=== PATIENT | female | born 1950 | race Caucasian/White ===

== ENCOUNTER 2017-01-27 10:48 | Inpatient (IN) | payer MEDICARE ==
[2017-01-27 13:53] LABS: INR 1.1 (<1.2); Prothrombin Time 11.1 sec (9.0-12.0)
[2017-01-27 13:55] LABS: HCT 40.3 % (34.0-46.0); HGB 13.8 gm/dL (11.4-16.0); MCH 32.3 pg (25.0-35.0); MCV 94.2 fL (80.0-100.0); RBC 4.28 m/uL (3.80-5.40)
[2017-01-27 13:56] LABS: CH 33.1; CHCM 35.3; MCHC 34.3 g/dL (31.0-37.0); RDW 12.9 % (11.5-15.5)
[2017-01-27 13:58] LABS: Anion Gap 10 mmol/L; Blood Urea Nitrogen 16 mg/dL (7-17); Calcium 9.6 mg/dL (8.4-10.2); Carbon Dioxide 23 mmol/L (22-30); Chloride 104 mmol/L (98-107); Glucose 133 mg/dL (74-99); Non-African American GFR(MDRD) 55 (>60 ml/min/1.73 sqM); Potassium 3.9 mmol/L (3.5-5.1); Sodium 137 mmol/L (137-145)
[2017-01-27] MEDS ORDERED: LIDOCAINE 2% INJ 20 MG/ML (20 ML MDV) ONE (13:58)
[2017-01-27] MEDS ORDERED: HEPARIN SODIUM,PORCINE 5,000 UNIT/ML 1 ML VIAL IV STA (14:04)
[2017-01-27] MEDS ORDERED: ATORVASTATIN 80 MG TAB PO STA (14:06)
[2017-01-27] MEDS ORDERED: MIDAZOLAM 2 MG/2 ML VIAL ONE (14:13)
[2017-01-27] MEDS ORDERED: methylPREDNISolone SOD SUCCI 125 MG/2 ML VIAL ONE (14:13)
[2017-01-27] MEDS ORDERED: diphenhydrAMINE 50 MG/ML 1 ML VIAL ONE (14:13)
[2017-01-27 14:16] VITALS: BMI 29.2
[2017-01-27] MEDS ORDERED: methylPREDNISolone SOD SUCCI 125 MG/2 ML VIAL IV ONE (14:18)
[2017-01-27] MEDS ORDERED: diphenhydrAMINE 50 MG/ML 1 ML VIAL IVP ONE (14:18)
[2017-01-27] MEDS ORDERED: MIDAZOLAM 2 MG/2 ML VIAL IV ONE (14:21)
[2017-01-27] MEDS ORDERED: LIDOCAINE 2% INJ 20 MG/ML SQ ONE (14:22)
[2017-01-27] MEDS ORDERED: IV FLUID CONTINUATION 1,000 ML IV ONE (14:28)
[2017-01-27] MEDS ORDERED: BIVALIRUDIN BOLUS 250 MG/50 ML IV ONE (14:43)
[2017-01-27] MEDS ORDERED: BIVALIRUDIN 250 MG in SODIUM CHLORIDE 0.9% 50 ML IV ONE (14:47)
[2017-01-27] MEDS: NITROGLYCERIN 1000MCG/10ML SYRINGE INTRACORON ONE ×2 (14:57→15:07)
[2017-01-27] MEDS ORDERED: niCARdipine 25 MG/10 ML VIAL ONE (15:06)
[2017-01-27] MEDS ORDERED: niCARdipine Syringe (1,000 mcg/10 mL) INTRACORON ONE (15:08)
[2017-01-27] MEDS ORDERED: CLOPIDOGREL 75 MG TAB ONE (15:08)
[2017-01-27] MEDS ORDERED: CLOPIDOGREL 75 MG TAB PO ONE (15:18)
[2017-01-27] MEDS ORDERED: IOHEXOL 350 MG/ML 125ML BOTTLE INJ ONE (15:18)
[2017-01-27] MEDS ORDERED: ATROPINE SULFATE 0.1 MG/ML 10ML SYRINGE ONE (18:03)
[2017-01-27] MEDS: SODIUM CHLORIDE 0.9% 1,000 ML IV SCH (18:43)
--- NOTE | 2017-01-27 20:53 | CONS ---
CONSULTATION CHIEF COMPLAINT: Chest pain. This is a 66-year-old lady with history of hypertension, dyslipidemia, and family history of coronary artery disease who presented to [facility] with symptoms of chest pain. She describes it as a precordial chest pressure that radiated to her back, moderate in intensity, and was associated with some diaphoresis. She was diagnosed with unstable angina and transferred to [facility]. After coming here, she had another bout of chest discomfort. EKG shows sinus rhythm with ST- T wave changes suggestive of ischemia. Due to her symptomatology and the EKG changes, I advised her to undergo cardiac catheterization with a view to performing angioplasty. She had been explained the risks, benefits and alternatives, understood and accepted. PAST MEDICAL HISTORY: Past medical history is significant for 1. Hypertension. 2. Dyslipidemia. MEDICATIONS: Medications are as charted. She could not tolerate statins. ALLERGIES: She has MULTIPLE DRUG ALLERGIES. They are charted. FAMILY HISTORY: Significant for coronary artery disease. SOCIAL HISTORY: Negative for smoking, ETOH abuse or drug abuse. REVIEW OF SYSTEMS: HEENT is unremarkable. CARDIAC: As described above. RESPIRATORY: Negative. GI: Negative. GENITOURINARY: Negative. ALLERGY/IMMUNOLOGY: Negative. SKIN: Negative. MUSCULOSKELETAL: Significant for arthritis. PSYCHOSOCIAL: Negative. ENDOCRINE: Negative. DERMATOLOGICAL: Negative. CONSTITUTIONAL: Negative. ONCOLOGICAL: Negative. Rest of the system review is not relevant. PHYSICAL EXAM: Comfortable at rest. Vital signs are stable. There is no jugular venous distention. Carotid upstroke is normal. There is no bruit. Chest exam reveals good air entry bilaterally. Heart exam reveals first and second heart sounds. No gallop. No murmur. No rub. Abdomen is soft, nontender. Examination of extremities did not reveal any edema. Peripheral pulses are felt. VALVE FITTER exam did not reveal focal neurological deficits. EKG: EKG shows ST-T wave changes of ischemia. LABS: Creatinine is normal. Hemoglobin is normal. ASSESSMENT: Unstable angina. PLAN: The patient will undergo cardiac catheterization. Will decide on further course of action based on the catheterization findings. SANDRAL / RASHAUNN: [id number] /
[2017-01-28] MEDS ORDERED: HYDROcodone/APAP 5-325MG 1 EACH TAB PO PRN (02:56)
[2017-01-28] MEDS: SODIUM CHLORIDE 0.9% 1,000 ML IV SCH ×2 (04:57→19:01)
[2017-01-28] MEDS ORDERED: ZOLPIDEM 5 MG TAB PO PRN (08:17)
[2017-01-28] MEDS ORDERED: ALPRAZolam 0.25 MG TAB PO PRN (08:17)
[2017-01-28] MEDS ORDERED: ATROPINE SULFATE 0.1 MG/ML 10ML SYRINGE IV PRN (08:17)
[2017-01-28] MEDS ORDERED: MAG HYDROX/AL HYDROX/SIMETH 30 ML CUP PO PRN (08:17)
[2017-01-28] MEDS ORDERED: NITROGLYCERIN SL TABS 0.4 MG TAB SUBLINGUAL PRN (08:17)
[2017-01-28] MEDS ORDERED: HYDROmorphone 1 MG/ML 1 ML SYRINGE IVP PRN (08:17)
--- NOTE | 2017-01-28 08:45 | CC ---
CARDIAC CATHETERIZATION REPORT INDICATION: Unstable angina. PROCEDURE NOTE: After obtaining informed consent, left heart catheterization and coronary angiogram were performed via the right femoral artery using standard Sherley catheters. Patient tolerated the procedure well without any obvious immediate complication. Moderate conscious sedation was given to the patient. Total sedation time was 15 minutes. FINDINGS: 1. HEMODYNAMICS: Left ventricular end-diastolic pressure is 14 to 16 mm. There is no significant gradient across aortic valve. 2. LEFT VENTRICULOGRAM: Left ventriculogram is not performed. 3. ANGIOGRAPHIC DATA:. 4. LEFT MAIN CORONARY ARTERY: Left main coronary artery is a normal-sized vessel and is free of stenosis. It divides into left anterior descending coronary artery and circumflex coronary artery. The circ is a nondominant vessel but shows a focal 95% stenosis. LAD shows a mild atherosclerotic plaque, both in its proximal and mid portion. Right coronary artery is a large dominant vessel shows some mild atherosclerotic plaque in the proximal mid and distal portions. CONCLUSION: A 95% stenosis involving [place] circumflex coronary artery. PLAN: Patient will undergo angioplasty of the circ by Dr. Pascual, the on-call fuel efficient aircraft designer. MIGUE / RASHAUNN: [id number] /
[2017-01-28] MEDS ORDERED: ATORVASTATIN 80 MG TAB PO SCH (09:00)
[2017-01-28] MEDS: ASPIRIN 325 MG TAB PO SCH (09:00)
[2017-01-28] MEDS: METOPROLOL TARTRATE 12.5 MG TAB PO SCH ×2 (09:00→22:11)
[2017-01-28] MEDS: TRIAMTERENE-HCTZ 37.5-25MG 1 EACH CAP PO SCH (09:01)
[2017-01-28] MEDS: CLOPIDOGREL 75 MG TAB PO SCH (09:01)
[2017-01-28 09:12] LABS: CH 32.2; HCT 38.2 % (34.0-46.0); HDW 2.41; HGB 12.9 gm/dL (11.4-16.0); MCH 32.1 pg (25.0-35.0); MCHC 33.7 g/dL (31.0-37.0); MCV 95.2 fL (80.0-100.0); Mean Platelet Volume 7.3; RBC 4.01 m/uL (3.80-5.40); RDW 12.7 % (11.5-15.5); WBC 18.9 k/uL (3.8-10.6)
--- NOTE | 2017-01-28 09:12 | PTCA ---
PERCUTANEOUSTRANS CORORONARY ANGIOGRAPHY DATE OF SERVICE: January 27, 2017. PERFORMING PHYSICIAN: Wilman Pascual M.D., adhesive primer. PROCEDURE PERFORMED: Successful stenting of the proximal and mid left circumflex using a 2.5 x 23 mm Xience TOÑITO with good angiographic results. INDICATIONS: This is a pleasant 66-year-old, female patient who presented to the hospital with ongoing chest discomfort and underwent heart catheterization by Dr. Gruber and was found to have critical disease involving the mid left circumflex and proximal left circumflex. APPROACH: Right common femoral artery. COMPLICATION: None. LEVEL OF SEDATION: Moderate with sedation length 27 minutes. PROCEDURE DESCRIPTION: After the diagnostic heart catheterization was performed by Dr. Gruber, we decided to pursue with intervention on the left circumflex. Anticoagulation was initiated using Angiomax. Subsequently, I took JL3.5 guide and the left main was engaged. A Whisper wire was used to wire the left circumflex. After that, I did balloon angioplasty using 2.0 x 12 mm balloon and after that, I deployed 2.5 x 23 mm Xience TOÑITO where the stent was positioned under fluoroscopy guidance and deployed under 14 atmospheres for 20 seconds. The following angiogram showed good angiographic results. POSTPROCEDURE MANAGEMENT: 1. Dual anti-platelet therapy. 2. Risk factor modifications. 3. Follow up with the patient. MMJENNIFER / RASHAUNN: [id number] /
[2017-01-28 09:23] LABS: Calcium 9.2 mg/dL (8.4-10.2); Potassium 3.7 mmol/L (3.5-5.1)
--- NOTE | 2017-01-28 10:12 | ECHOF ---
Referral Reason:cp MEASUREMENTS -------- HEIGHT: 157.5 cm WEIGHT: 72.6 kg BP: RVIDd: 2.3 cm (< 3.3) IVSd: 1.1 cm (0.6 - 1.1) LVIDd: 3.7 cm (3.9 - 5.3) LVPWd: 0.9 cm (0.6 - 1.1) IVSs: 1.3 cm LVIDs: 2.9 cm LVPWs: 1.2 cm LA Diam: 2.5 cm (2.7 - 3.8) Ao Diam: 3.3 cm (2.0 - 3.7) AV Cusp: 1.9 cm (1.5 - 2.6) LA Diam: 3.1 cm (2.7 - 3.8) MV EXCURSION: 11.891 mm (> 18.000) MV EF SLOPE: 54 mm/s (70 - 150) EPSS: 0.8 cm MV E Benoit: 0.75 m/s MV DecT: 266 ms MV A Benoit: 0.80 m/s MV E/A Ratio: 0.94 FINDINGS -------- Sinus rhythm. This was a technically adequate study. The left ventricular size is normal. Left ventricular wall thickness is normal. Overall left ventricular systolic function is normal with, an EF between 55 - 60 %. The right ventricle is normal in size. The left atrial size is normal. The right atrial size is normal. The aortic valve is trileaflet, and appears structurally normal. No aortic stenosis or regurgitation. Mild mitral regurgitation is present. Mild tricuspid regurgitation present. There is no evidence of pulmonary hypertension. The right ventricular systolic pressure, as measured by Doppler, is {RVSP}. There is no pulmonic regurgitation present. The aortic root size is normal. There is no pericardial effusion. CONCLUSIONS -------- 1. The left ventricular size is normal. 2. There is no pericardial effusion. 3. Left ventricular wall thickness is normal. 4. The aortic valve is trileaflet, and appears structurally normal. No aortic stenosis or regurgitation. 5. Mild mitral regurgitation is present. 6. Mild tricuspid regurgitation present. 7. There is no evidence of pulmonary hypertension. 8. The right ventricular systolic pressure, as measured by Doppler, is {RVSP}. 9. There is no pulmonic regurgitation present. 10. The aortic root size is normal. AUDIOVISUAL LIBRARIAN: Maria Ines Whitt RDCS
--- NOTE | 2017-01-28 11:29 | P.PN ---
Subjective Principal diagnosis: Non-Q-wave HI This is a pleasant 58-year-old female who was transferred here yesterday afternoon from [facility] where she had presented with symptoms of chest discomfort. She has a known history of hypertension, hyperlipidemia, and family history of premature coronary artery disease. Patient's symptoms were describes as as chest pressure, with associated diaphoresis and radiation to her back. Patient's first troponin at [facility] was 0.4, EKG showed normal sinus rhythm with ST-T wave changes suggestive of ischemia. Because of that patient was taken to the cardiac catheterization lab where she underwent angioplasty with stenting of the circumflex artery. She was seen and examined this morning, denies any chest pain or difficulty in breathing. Blood pressure 120/60, heart rate in the 60s. White blood cell count 18,000, potassium 3.7, BUN 19, creatinine 1.1. Troponin up to 10.9 this morning. EKG shows normal sinus rhythm with no changes from post-PCI. Patient has been on Lipitor in the past, had severe muscle aching and states that her liver enzymes also were elevated. She has however been on Crestor in the past without any difficulty. We will discontinue the Lipitor and initiate Crestor. Objective - Vital Signs Vital signs: Vital Signs Temp 97.5 F L 01/28/17 08:00 Pulse 60 01/28/17 08:00 Resp 18 01/28/17 08:00 BP 105/50 01/28/17 08:00 Pulse Ox 98 01/28/17 06:26 Intake & Output 01/27/17 01/28/17 01/28/17 18:59 06:59 18:59 Intake Total 787 257 4375 Output Total 300 1200 300 Balance 225 -950 840 Weight 72.575 kg 75 kg Intake: IV 225 Intake, IV Titration 300 750 Amount Sodium Chloride 0.9% 1, 300 750 000 ml @ 75 mls/hr IV . [id number] [facility] Rx#:[id number] Oral 250 390 Output: Urine 300 1200 300 Other: Voiding Method Bedpan Bedpan # Voids 1 1 - Exam PHYSICAL EXAMINATION: HEENT: Head is atraumatic, normocephalic. Pupils equal, round. Neck is supple. There is no elevated jugular venous pressure. HEART EXAMINATION: Heart S1, S2 normal. No murmur or gallop heard. CHEST EXAMINATION: Lungs are clear to auscultation and precussion. No chest wall tenderness is noted on palpation or with deep breathing. ABDOMEN: Soft, nontender. Bowel sounds are heard. No organomegaly noted. Right groin soft, no evidence of any hematoma. EXTREMITIES: 2+ peripheral pulses with no evidence of peripheral edema and no calf tenderness noted. NEUROLOGIC patient is awake, alert and oriented -3. . - Labs CBC & Chem 7: 01/28/17 08:58 01/28/17 08:58 Labs: Abnormal Lab Results - Last 24 Hours (Table) 01/27/17 01/27/17 01/27/17 Range/Units 13:28 13:28 13:28 WBC (3.8-10.6) k/uL BUN (7-17) mg/dL Creatinine (0.52-1.04) mg/dL Glucose 133 H (74-99) mg/dL Plasma Lactic Acid Juan 2.3 H* (0.7-2.0) mmol/L Troponin I 10.900 H* (0.000-0.034) ng/mL 01/28/17 01/28/17 Range/Units 08:58 08:58 WBC 18.9 H (3.8-10.6) k/uL BUN 19 H (7-17) mg/dL Creatinine 1.15 H (0.52-1.04) mg/dL Glucose 123 H (74-99) mg/dL Plasma Lactic Acid Juan (0.7-2.0) mmol/L Troponin I (0.000-0.034) ng/mL Assessment and Plan (1) Non-Q wave infarction Status: Acute (2) Presence of stent in left circumflex coronary artery Status: Acute (3) HTN (hypertension) Status: Acute (4) Hyperlipemia Status: Acute (5) Family history of coronary arteriosclerosis Status: Acute Plan: Cardiology's perspective, we will discontinue the Lipitor and start the patient on Crestor. Patient has been encouraged to be up ambulating in the hallway today. Plan for possible discharge home in the next 24-48 hours if stable. DNP note has been reviewed, I agree with a documented findings and plan of care. Patient was seen and examined.
--- NOTE | 2017-01-28 14:55 | P.HPIM ---
History of Present Illness H&P Date: 01/27/17 Patient is 58-year-old female came in with complaints of chest pressure like sensation radiating to the back. Patient never had any coronary artery disease history and patient is found to have minimally elevated troponin of 0.4 at [place] because of which patient was transferred here I evaluated the patient and the patient appears to have some nonspecific ST-T wave changes on the inferolateral leads. Cardiology was consulted. She did have known history of hypertension hyperlipidemia patient chest pain was pressure-like sensation 7 x 10 in severity radiating to the back along with some anxiety and shortness of breath. Review of Systems REVIEW OF SYSTEMS: CONSTITUTIONAL: No fever, no malaise, no fatigue. HEENT: No recent visual problems or hearing problems. Denied any sore throat. CARDIOVASCULAR: No orthopnea, PND, no palpitations, no syncope. PULMONARY: No shortness of breath, no cough, no hemoptysis. GASTROINTESTINAL: No diarrhea, no nausea, no vomiting, no abdominal pain. Normoactive bowel sounds. NEUROLOGICAL: No headaches, no weakness, no numbness. HEMATOLOGICAL: Denies any bleeding or petechiae. GENITOURINARY: Denies any burning micturition, frequency, or urgency. MUSCULOSKELETAL/RHEUMATOLOGICAL: Denies any joint pain, swelling, or any muscle pain. ENDOCRINE: Denies any polyuria or polydipsia. The rest of the 14-point review of systems is negative. Past Medical History Past Medical History: Hyperlipidemia, Hypertension History of Any Multi-Drug Resistant Organisms: None Reported Past Surgical History: Appendectomy, Heart Catheterization With Stent, Hysterectomy Past Anesthesia/Blood Transfusion Reactions: Previous Problems w/ Anesthesia Date of Last Stent Placement:: 01/27/17 Past Psychological History: Depression Smoking Status: Never smoker - Past Family History Father Family Medical History: Myocardial Infarction (VT) Mother Family Medical History: CVA/TIA Medications and Allergies Home Medications Medication Instructions Recorded Confirmed Type Aspirin EC [Ecotrin Low Dose] 81 mg PO DAILY 01/27/17 01/27/17 History Triamterene-Hctz 37.5-25Mg 1 cap PO DAILY 01/27/17 01/27/17 History [Dyazide 37.5-25 Capsule] Allergies Allergy/AdvReac Type Severity Reaction Status Date / Time amoxicillin [From Augmentin] Allergy Severe Anaphylaxis Verified 01/27/17 13:57 benzocaine Allergy Severe Anaphylaxis Verified 01/27/17 13:57 cephalexin [From Keflex] Allergy Severe Anaphylaxis Verified 01/27/17 13:57 clavulanic acid Allergy Severe Anaphylaxis Verified 01/27/17 13:57 [From Augmentin] procaine [From Novocain] Allergy Severe Anaphylaxis Verified 01/27/17 13:57 neomycin AdvReac Severe Anaphylaxis Verified 01/27/17 13:58 amlodipine AdvReac KIDNEY Verified 01/27/17 13:57 FAILURE cetirizine [From Zyrtec] AdvReac URINARY Verified 01/27/17 13:58 RETENTION hydromorphone [From Dilaudid] AdvReac GI UPSET Verified 01/27/17 13:57 Iodinated Contrast- Oral and AdvReac GI UPSET Verified 01/27/17 13:57 IV Dye NSAIDS (Non-Steroidal AdvReac GI UPSET Verified 01/27/17 13:57 Anti-Inflamma Vnudmil-Jwm-Sze Reductase AdvReac EXTREME Verified 01/27/17 13:58 Inhibitor JOINT PAIN verapamil AdvReac KIDNEY Verified 01/27/17 13:57 FAILURE Physical Exam Vitals: Vital Signs Temp Pulse Pulse Resp BP BP Pulse Ox 01/28/17 14:00 16 01/28/17 12:00 97.4 F L 72 71 16 100/46 01/28/17 08:00 97.5 F L 60 71 16 105/50 01/28/17 06:26 97.5 F L 60 18 120/57 98 01/28/17 03:39 58 L 18 01/28/17 03:34 97.8 F 58 L 18 115/64 97 01/28/17 00:00 97.5 F L 52 L 17 97/56 96 01/27/17 22:26 97.6 F 56 L 17 105/58 95 01/27/17 21:26 97.9 F 59 L 19 110/58 95 01/27/17 20:26 97.8 F 57 L 17 110/57 96 01/27/17 20:00 97.5 F L 55 L 18 116/69 96 01/27/17 19:56 97.8 F 55 L 18 105/58 95 01/27/17 19:26 97.8 F 89 18 110/60 97 01/27/17 19:11 97.7 F 85 18 116/69 97 01/27/17 18:56 52 L 18 135/76 01/27/17 18:39 55 L 14 119/66 01/27/17 18:37 57 L 14 132/81 01/27/17 18:33 58 L 14 131/70 01/27/17 18:31 59 L 14 138/85 01/27/17 18:28 57 L 14 132/82 01/27/17 18:25 58 L 16 142/83 01/27/17 18:22 61 16 134/75 01/27/17 18:18 57 L 16 143/94 01/27/17 18:16 58 L 16 142/93 01/27/17 18:06 58 L 16 148/87 149/86 01/27/17 17:37 56 L 158/89 01/27/17 17:22 58 L 152/84 01/27/17 17:07 56 L 137/86 01/27/17 16:52 60 141/81 01/27/17 16:37 58 L 152/81 01/27/17 16:22 58 L 146/82 01/27/17 16:07 56 L 142/82 01/27/17 15:52 60 18 153/82 99 01/27/17 15:37 61 18 144/74 98 Intake and Output 01/27/17 01/28/17 01/28/17 22:59 06:59 14:59 Intake Total 250 1140 Output Total 300 1200 300 Balance -300 -950 840 Intake: Intake, IV Titration 750 Amount Sodium Chloride 0.9% 1, 750 000 ml @ 75 mls/hr IV . [id number] [facility] Rx#:[id number] Oral 250 390 Output: Urine 300 1200 300 Other: Voiding Method Bedpan Toilet # Voids 1 Weight 75 kg PHYSICAL EXAMINATION: GENERAL: The patient is alert and oriented x3, patient is an bit of respiratory distress and appears to be quite anxious. Well developed, well nourished. HEENT: Pupils are round and equally reacting to light. EOMI. No scleral icterus. No conjunctival pallor. Normocephalic, atraumatic. No pharyngeal erythema. No thyromegaly. CARDIOVASCULAR: S1 and S2 present. No murmurs, rubs, or gallops. PULMONARY: Chest is clear to auscultation, no wheezing or crackles. ABDOMEN: Soft, nontender, nondistended, normoactive bowel sounds. No palpable organomegaly. MUSCULOSKELETAL: No joint swelling or deformity. EXTREMITIES: No cyanosis, clubbing, or pedal edema. NEUROLOGICAL: Gross neurological examination did not reveal any focal deficits. SKIN: No rashes. Results CBC & Chem 7: 01/28/17 08:58 01/28/17 08:58 Labs: Abnormal Lab Results - Last 24 Hours (Table) 01/27/17 01/28/17 01/28/17 Range/Units 13:28 08:58 08:58 WBC 18.9 H (3.8-10.6) k/uL BUN 19 H (7-17) mg/dL Creatinine 1.15 H (0.52-1.04) mg/dL Glucose 123 H (74-99) mg/dL Troponin I 10.900 H* (0.000-0.034) ng/mL Thrombosis Risk Factor Assmnt - Choose All That Apply Each Factor Represents 1 point: Acute VT, Obesity (BMI >25) Other Risk Factors: Yes Each Risk Factor Represents 2 Points: Age 61-74 years Thrombosis Risk Factor Assessment Total Risk Factor Score: 4 Thrombosis Risk Factor Assessment Level: Moderate Risk Assessment and Plan Plan: #1 possible non-ST elevation myocardial infarction: We'll repeat 2 more sets of troponin cardiology was consulted patient received the L[facility]ox in [facility]. Patient will be started on low intensity heparin. Patient is also on nitroglycerin pain drip. #2 hypertension next and #3 hyperlipidemia
[2017-01-28] MEDS ORDERED: ACETAMINOPHEN TAB 325 MG TAB PO PRN (16:42)
--- NOTE | 2017-01-28 16:48 | P.PN ---
Subjective Progress note being dictated for Dr. Ritter. Interval history: This is a 66-year-old female admitted with complaints of chest pressure like sensation radiating to the back. Patient never had any coronary artery disease history and patient is found to have minimally elevated troponin of 0.4 at [place] because of which patient was transferred here I evaluated the patient and the patient appears to have some nonspecific ST-T wave changes on the inferolateral leads. Cardiology was consulted. She did have known history of hypertension hyperlipidemia patient chest pain was pressure-like sensation 7 x 10 in severity radiating to the back along with some anxiety and shortness of breath. 01/28/2017 evaluated by cardiology and patient underwent cardiac catheterization with angioplasty and stenting of the circumflex yesterday. Tolerated procedure well. Denies chest pain, chest pressure, palpitations or increasing shortness of breath. Complains of mild back discomfort, which she attributes to lying flat for an extended amount of time. Mild elevated renal function, receiving gentle IV fluid hydration. Telemetry sinus rhythm. Objective - Vital Signs Vital signs: Vital Signs Temp 96.9 F L 01/28/17 15:25 Pulse 78 01/28/17 15:25 Resp 16 01/28/17 15:25 BP 128/74 01/28/17 15:25 Pulse Ox 97 01/28/17 15:25 Intake & Output 01/27/17 01/28/17 01/28/17 18:59 06:59 18:59 Intake Total 200 643 0221 Output Total 300 1200 300 Balance 225 -950 1870 Weight 72.575 kg 75 kg Intake: IV 225 Intake, IV Titration 300 900 Amount Sodium Chloride 0.9% 1, 300 900 000 ml @ 75 mls/hr IV . [id number] [facility] Rx#:[id number] Oral 250 1270 Output: Urine 300 1200 300 Other: Voiding Method Bedpan Toilet # Voids 1 1 - Exam GENERAL: The patient is alert and oriented x3, no acute distress .Well developed , well nourished. HEENT: Pupils are round and equally reacting to light. EOMI. No scleral icterus. No conjunctival pallor. Normocephalic, atraumatic. No pharyngeal erythema. No thyromegaly. CARDIOVASCULAR: S1 and S2 present. No murmurs, rubs, or gallops. PULMONARY: Chest is clear to auscultation, no wheezing or crackles. ABDOMEN: Soft, nontender, nondistended, normoactive bowel sounds. No palpable organomegaly. MUSCULOSKELETAL: No joint swelling or deformity. EXTREMITIES: No cyanosis, clubbing, or pedal edema. NEUROLOGICAL: Gross neurological examination did not reveal any focal deficits. SKIN: No rashes. - Labs CBC & Chem 7: 01/28/17 08:58 01/28/17 08:58 Labs: Abnormal Lab Results - Last 24 Hours (Table) 01/28/17 01/28/17 Range/Units 08:58 08:58 WBC 18.9 H (3.8-10.6) k/uL BUN 19 H (7-17) mg/dL Creatinine 1.15 H (0.52-1.04) mg/dL Glucose 123 H (74-99) mg/dL Assessment and Plan Plan: #1 non-ST elevation myocardial infarction, status post cardiac cath/angioplasty with stenting of circumflex #2 hypertension #3 hyperlipidemia Plan: Continue on current medication regime ,monitoring and symptomatic treatment. Increase ambulation as tolerated. Discharge planning in progress for tomorrow pending clearance from cardiology. Further recommendations to follow. The impression and plan of care has been dictated as directed. : I performed a H&P examination of this patient and discussed the same with the dictator. I agree with the dictator's note. Any additional findings/opinions/ etc. will be noted.
[2017-01-28] MEDS ORDERED: BISACODYL 10 MG SUPP RECTAL STA (19:31)
[2017-01-28] MEDS ORDERED: MAGNESIUM HYDROXIDE 2,400 MG/10 ML CUP PO PRN (20:23)
[2017-01-29] MEDS: SODIUM CHLORIDE 0.9% 1,000 ML IV SCH (06:44)
[2017-01-29 06:58] LABS: Basophils % (A) 0 %; CHCM 34.4; Eosinophils # (A) 0.1 k/uL (0-0.7); Eosinophils % (A) 1 %; HCT 38.9 % (34.0-46.0); Luc # (Auto) 0.18; Luc % (Auto) 1; Lymphocytes % (A) 16 %; MCH 32.1 pg (25.0-35.0); MCHC 33.3 g/dL (31.0-37.0); MCV 96.3 fL (80.0-100.0); Mean Platelet Volume 8.2; Monocytes # (A) 0.6 k/uL (0-1.0); Monocytes % (A) 5 %; Neutrophils # (A) 9.4 k/uL (1.3-7.7); Neutrophils % (A) 76 %; RBC 4.04 m/uL (3.80-5.40); RDW 13.2 % (11.5-15.5); WBC 12.3 k/uL (3.8-10.6); WBC (Perox) 12.89
[2017-01-29 07:11] LABS: Calcium 9.6 mg/dL (8.4-10.2)
[2017-01-29] MEDS: CLOPIDOGREL 75 MG TAB PO SCH (09:23)
[2017-01-29] MEDS: ASPIRIN 325 MG TAB PO SCH (09:23)
[2017-01-29] MEDS: METOPROLOL TARTRATE 12.5 MG TAB PO SCH (09:23)
[2017-01-29] MEDS: TRIAMTERENE-HCTZ 37.5-25MG 1 EACH CAP PO SCH (09:23)
--- NOTE | 2017-01-29 10:02 | P.PN ---
Subjective Principal diagnosis: Non-Q-wave MT This is a pleasant 58-year-old female who was transferred here yesterday afternoon from [facility] where she had presented with symptoms of chest discomfort. She has a known history of hypertension, hyperlipidemia, and family history of premature coronary artery disease. Patient's symptoms were describes as as chest pressure, with associated diaphoresis and radiation to her back. Patient's first troponin at [facility] was 0.4, EKG showed normal sinus rhythm with ST-T wave changes suggestive of ischemia. Because of that patient was taken to the cardiac catheterization lab where she underwent angioplasty with stenting of the circumflex artery. She was seen and examined this morning, denies any chest pain or difficulty in breathing. Blood pressure 120/60, heart rate in the 60s. White blood cell count 18,000, potassium 3.7, BUN 19, creatinine 1.1. Troponin up to 10.9 this morning. EKG shows normal sinus rhythm with no changes from post-PCI. Patient has been on Lipitor in the past, had severe muscle aching and states that her liver enzymes also were elevated. She has however been on Crestor in the past without any difficulty. We will discontinue the Lipitor and initiate Crestor. 01/29/2017 Patient seen and examined this morning, feels well, denies any chest pain or difficulty in breathing. She has been up ambulating without any difficulty. Let pressure 124/56 with a heart rate in the 50s 95% on room air. Objective - Vital Signs Vital signs: Vital Signs Temp 98.4 F 01/29/17 06:00 Pulse 51 L 01/29/17 06:00 Resp 19 01/29/17 06:00 BP 125/56 01/29/17 06:00 Pulse Ox 95 01/29/17 06:00 Intake & Output 01/28/17 01/29/17 01/29/17 18:59 06:59 18:59 Intake Total 2410 1550 Output Total 300 1500 Balance 2110 50 Weight 74.4 kg Intake: Intake, IV Titration 900 1050 Amount IV Fluid Continuation 1, 300 000 ml As IV .[facility] Rx#:[id number] Sodium Chloride 0.9% 1, 900 750 000 ml @ 75 mls/hr IV . [id number] [facility] Rx#:[id number] Oral 1510 500 Output: Urine 300 1500 Other: Voiding Method Toilet Toilet # Voids 1 # Bowel Movements 1 - Exam PHYSICAL EXAMINATION: HEENT: Head is atraumatic, normocephalic. Pupils equal, round. Neck is supple. There is no elevated jugular venous pressure. HEART EXAMINATION: Heart S1, S2 normal. No murmur or gallop heard. CHEST EXAMINATION: Lungs are clear to auscultation and precussion. No chest wall tenderness is noted on palpation or with deep breathing. ABDOMEN: Soft, nontender. Bowel sounds are heard. No organomegaly noted. Right groin soft, no evidence of any hematoma. EXTREMITIES: 2+ peripheral pulses with no evidence of peripheral edema and no calf tenderness noted. NEUROLOGIC patient is awake, alert and oriented -3. . - Labs CBC & Chem 7: 01/29/17 06:28 01/29/17 06:28 Labs: Abnormal Lab Results - Last 24 Hours (Table) 01/29/17 01/29/17 Range/Units 06:28 06:28 WBC 12.3 H (3.8-10.6) k/uL Neutrophils # 9.4 H (1.3-7.7) k/uL BUN 24 H (7-17) mg/dL Creatinine 1.21 H (0.52-1.04) mg/dL Assessment and Plan (1) Non-Q wave infarction Status: Acute (2) Presence of stent in left circumflex coronary artery Status: Acute (3) HTN (hypertension) Status: Acute (4) Hyperlipemia Status: Acute (5) Family history of coronary arteriosclerosis Status: Acute Plan: Cardiology's perspective, patient may be able to be discharged home today. We will make her a follow-up appointment to see Dr. Mendez in the office in one week. Patient will be discharged home on aspirin, Plavix, Crestor 10 mg daily, metoprolol tartrate 12-1/2 mg one tablet by mouth twice a day, sublingual nitroglycerin as needed for chest pain. Patient has been provided prescriptions for all of the above medications. DNP note has been reviewed, I agree with a documented findings and plan of care. Patient was seen and examined.
[2017-01-29] MEDS ORDERED: CRESTOR 10 MG PO SCH (10:15)
[2017-01-29 10:44] VITALS: RESP 16; TEMP 97.4
[2017-01-29 12:20] VITALS: BP 123/77; PULSE 44
== END 2017-01-29 13:23 | disposition home or self-care (01) | DRG 247 ==
LOC: 6SEL 13:04
PROVIDERS: ADMIT Internal Medicine; ATTEND Internal Medicine
PROC: B2111ZZ Fluoroscopy of Multiple Coronary Arteries using Low Osmolar Contrast (ICD-10-PCS; 2017-01-27)
PROC: B2151ZZ Fluoroscopy of Left Heart using Low Osmolar Contrast (ICD-10-PCS; 2017-01-27)
PROC: 027034Z Dilation of Coronary Artery, One Artery with Drug-eluting Intraluminal Device, Percutaneous Approach (ICD-10-PCS; principal; 2017-01-27 14:09)
PROC: 4A023N7 Measurement of Cardiac Sampling and Pressure, Left Heart, Percutaneous Approach (ICD-10-PCS; 2017-01-27 14:09)
DX: I21.4 Non-ST elevation (NSTEMI) myocardial infarction (principal); I10 Essential (primary) hypertension; I25.110 Atherosclerotic heart disease of native coronary artery with unstable angina pectoris; M19.90 Unspecified osteoarthritis, unspecified site; R06.02 Shortness of breath; M54.9 Dorsalgia, unspecified; M79.1 Myalgia; E66.9 Obesity, unspecified; E78.5 Hyperlipidemia, unspecified; Z82.49 Family history of ischemic heart disease and other diseases of the circulatory system; Z88.5 Allergy status to narcotic agent; Z88.0 Allergy status to penicillin; Z88.8 Allergy status to other drugs, medicaments and biological substances; Z88.6 Allergy status to analgesic agent; Z88.4 Allergy status to anesthetic agent; Z88.1 Allergy status to other antibiotic agents; Z91.041 Radiographic dye allergy status; Z79.82 Long term (current) use of aspirin; Z79.899 Other long term (current) drug therapy; Z86.59 Personal history of other mental and behavioral disorders; Z82.3 Family history of stroke; Z90.49 Acquired absence of other specified parts of digestive tract; Z90.710 Acquired absence of both cervix and uterus; Z95.5 Presence of coronary angioplasty implant and graft; Z87.19 Personal history of other diseases of the digestive system
CPT/HCPCS: 80048; 83605; 84484; 85025; 85027; 85610; 93306; 93458

== ENCOUNTER → 2017-02-02 | Outpatient (CLI) | payer MEDICARE ==
[2017-02-02 14:59] LABS: Basophils # (A) 0.1 k/uL (0-0.2); Basophils % (A) 1 %; CH 32.7; CHCM 33.7; Eosinophils # (A) 0.2 k/uL (0-0.7); Eosinophils % (A) 3 %; HCT 42.8 % (34.0-46.0); HDW 2.35; Luc # (Auto) 0.14; Luc % (Auto) 2; Lymphocytes # (A) 1.4 k/uL (1.0-4.8); Lymphocytes % (A) 19 %; MCH 31.9 pg (25.0-35.0); MCHC 32.7 g/dL (31.0-37.0); MCV 97.5 fL (80.0-100.0); Mean Platelet Volume 8.2; Monocytes # (A) 0.5 k/uL (0-1.0); Monocytes % (A) 7 %; Neutrophils % (A) 68 %; RBC 4.39 m/uL (3.80-5.40); RDW 13.5 % (11.5-15.5); WBC 7.3 k/uL (3.8-10.6); WBC (Perox) 7.41
[2017-02-02 15:17] LABS: Anion Gap 11 mmol/L; Blood Urea Nitrogen 20 mg/dL (7-17); Calcium 9.5 mg/dL (8.4-10.2); Carbon Dioxide 21 mmol/L (22-30); Chloride 107 mmol/L (98-107); Glucose 84 mg/dL (74-99); Non-African American GFR(MDRD) 55 (>60 ml/min/1.73 sqM); Sodium 139 mmol/L (137-145)
[2017-02-02 15:18] LABS: Potassium 4.3 mmol/L (3.5-5.1)
== END | disposition home or self-care (01) ==
LOC: LABWHC1 14:11
PROVIDERS: ATTEND Nurse Practitioner
DX: E78.01 Familial hypercholesterolemia (principal); I10 Essential (primary) hypertension
CPT/HCPCS: 36415; 80048; 85025

== ENCOUNTER 2017-07-09 21:02 | Observation (INO) | payer MEDICARE ==
[2017-07-09 21:46] LABS: Basophils % (A) 0 %; Eosinophils # (A) 0.2 k/uL (0-0.7); Eosinophils % (A) 3 %; HGB 13.8 gm/dL (11.4-16.0); Lymphocytes # (A) 1.2 k/uL (1.0-4.8); Lymphocytes % (A) 19 %; MCH 31.5 pg (25.0-35.0); MCHC 33.6 g/dL (31.0-37.0); MCV 93.9 fL (80.0-100.0); Mean Platelet Volume 7.3; Monocytes # (A) 0.5 k/uL (0-1.0); Monocytes % (A) 7 %; Neutrophils # (A) 4.6 k/uL (1.3-7.7); Neutrophils % (A) 70 %; Platelet Count 233 k/uL (150-450); RBC 4.37 m/uL (3.80-5.40); RDW 12.7 % (11.5-15.5); WBC 6.6 k/uL (3.8-10.6)
--- NOTE | 2017-07-09 21:49 | XR ---
EXAMINATION: XR chest 2V DATE AND TIME: 07/09/2017 9:43 PM ORDERING PROVIDER: Geoffrey Washington DO CLINICAL INDICATION: Chest Pain TECHNIQUE: PA and lateral COMPARISON: None. DESCRIPTION: EKG leads noted. The lungs are clear. The pleural spaces are negative. The cardiac silhouette is not enlarged. The skeletal structures are intact without focal findings. The overlying soft tissues are prominent. IMPRESSION: NO ACUTE PROCESS.
[2017-07-09 21:54] LABS: Prothrombin Time 9.9 sec (9.0-12.0)
[2017-07-09 21:56] LABS: ALT 38 U/L (9-52); AST 34 U/L (14-36); Albumin 4.1 g/dL (3.5-5.0); Alkaline Phosphatase 72 U/L (38-126); Anion Gap 13 mmol/L; Blood Urea Nitrogen 19 mg/dL (7-17); Carbon Dioxide 26 mmol/L (22-30); Chloride 103 mmol/L (98-107); Glucose 155 mg/dL (74-99); Lipase 146 U/L (23-300); Potassium 3.8 mmol/L (3.5-5.1); Sodium 142 mmol/L (137-145); Total Bilirubin 0.4 mg/dL (0.2-1.3); Total Protein 7.3 g/dL (6.3-8.2)
[2017-07-09 22:04] LABS: Partial Thromboplastin Time 22.4 sec (22.0-30.0)
[2017-07-09 22:09] LABS: Creatine Kinase 79 U/L (30-135)
[2017-07-09 22:22] LABS: Creatine Kinase MB 0.8 ng/mL (0.0-2.4); Troponin I <0.012 ng/mL (0.000-0.034)
--- NOTE | 2017-07-09 22:29 | ED ---
General Adult HPI - General Chief complaint: Chest Pain Stated complaint: Chest Pain Time Seen by Provider: 07/09/17 21:31 Source: EMS, RN notes reviewed, old records reviewed Mode of arrival: EMS Limitations: no limitations - History of Present Illness Initial comments: This is a 58-year-old female to the ER for evaluation of chest pain. Patient has severe anterior chest pain is a prior UT. Patient has history of UT. With stent placement. Patient denies nausea vomiting no fever no cough or congestion. No recent travel history or sick contacts. Patient hasn't has been sick and she has not been taking good care of herself. - Related Data Home Medications Medication Instructions Recorded Confirmed Aspirin EC [Ecotrin Low Dose] 81 mg PO DAILY 01/27/17 07/09/17 Metoprolol Tartrate [Lopressor] 25 mg PO DAILY 07/09/17 07/09/17 Rosuvastatin [Crestor] 10 mg PO DAILY 07/09/17 07/09/17 Previous Rx's Medication Instructions Recorded Clopidogrel [Plavix] 75 mg PO DAILY #30 tab 01/29/17 Nitroglycerin Sl Tabs [Nitrostat] 0.4 mg SUBLINGUAL Q5M PRN #25 tab 01/29/17 Allergies Allergy/AdvReac Type Severity Reaction Status Date / Time amoxicillin [From Augmentin] Allergy Severe Anaphylaxis Verified 07/09/17 21:09 benzocaine Allergy Severe Anaphylaxis Verified 07/09/17 21:12 cephalexin [From Keflex] Allergy Severe Anaphylaxis Verified 07/09/17 21:12 clavulanic acid Allergy Severe Anaphylaxis Verified 07/09/17 21:12 [From Augmentin] Penicillins Allergy Severe Anaphylaxis Verified 07/09/17 21:12 procaine [From Novocain] Allergy Severe Anaphylaxis Verified 07/09/17 21:12 neomycin AdvReac Severe Anaphylaxis Verified 07/09/17 21:12 amlodipine AdvReac KIDNEY Verified 07/09/17 21:12 FAILURE cetirizine [From Zyrtec] AdvReac URINARY Verified 07/09/17 21:12 RETENTION hydromorphone [From Dilaudid] AdvReac GI UPSET Verified 07/09/17 21:12 Iodinated Contrast- Oral and AdvReac GI UPSET Verified 07/09/17 21:12 IV Dye NSAIDS (Non-Steroidal AdvReac GI UPSET Verified 07/09/17 21:12 Anti-Inflamma [id number] Reductase AdvReac EXTREME Verified 07/09/17 21:12 Inhibitor JOINT PAIN verapamil AdvReac KIDNEY Verified 07/09/17 21:12 FAILURE Review of Systems ROS Statement: Those systems with pertinent positive or pertinent negative responses have been documented in the HPI. ROS Other: All systems not noted in ROS Statement are negative. Past Medical History Past Medical History: Hyperlipidemia, Hypertension History of Any Multi-Drug Resistant Organisms: None Reported Past Surgical History: Appendectomy, Heart Catheterization With Stent, Hysterectomy Past Anesthesia/Blood Transfusion Reactions: Previous Problems w/ Anesthesia Date of Last Stent Placement:: 01/27/17 Past Psychological History: Depression Smoking Status: Never smoker Past Alcohol Use History: None Reported Past Drug Use History: None Reported - Past Family History Father Family Medical History: Myocardial Infarction (UT) Mother Family Medical History: CVA/TIA General Exam Limitations: no limitations General appearance: alert, in no apparent distress, anxious Head exam: Present: atraumatic, normocephalic, normal inspection Eye exam: Present: normal appearance, PERRL, EOMI. Absent: scleral icterus, conjunctival injection, periorbital swelling ENT exam: Present: normal exam, mucous membranes moist Neck exam: Present: normal inspection. Absent: tenderness, meningismus, lymphadenopathy Respiratory exam: Present: normal lung sounds bilaterally. Absent: respiratory distress, wheezes, rales, rhonchi, stridor Cardiovascular Exam: Present: regular rate, normal rhythm, normal heart sounds. Absent: systolic murmur, diastolic murmur, rubs, gallop, clicks GI/Abdominal exam: Present: soft, normal bowel sounds. Absent: distended, tenderness, guarding, rebound, rigid Extremities exam: Present: normal inspection, full ROM, normal capillary refill. Absent: tenderness, pedal edema, joint swelling, calf tenderness Back exam: Present: normal inspection Neurological exam: Present: alert, oriented X3, CN II-XII intact Psychiatric exam: Present: normal affect, normal mood Skin exam: Present: warm, dry, intact, normal color. Absent: rash Course Vital Signs 07/09/17 07/09/17 07/09/17 21:05 21:37 23:14 Temperature 98.7 F 98.2 F Pulse Rate 56 L 51 L 50 L Respiratory 18 16 16 Rate Blood Pressure 131/64 113/58 169/74 O2 Sat by Pulse 100 100 99 Oximetry 07/10/17 00:00 Temperature 98.9 F Pulse Rate 49 L Respiratory 18 Rate Blood Pressure 123/62 O2 Sat by Pulse 99 Oximetry - Reevaluation(s) Reevaluation #1: Patient is improved although continuing to have chest pain EKG Findings - EKG Comments: EKG Findings:: EKG shows sinus bradycardia rate of 50, MT 140, QRS 90, QTC 397 Medical Decision Making - Medical Decision Making 66 female the ER for evaluation of chest pain history of stent placement. Patient states she is unable to take care of herself as of late because of her 's illness, chest pain started tonight severe anterior just a prior heart attack. Patient taken all medications as prescribed, will be admitted for cardiac observation - Lab Data Result diagrams: 07/09/17 21:24 07/09/17 21:24 Lab Results 07/09/17 07/09/17 07/09/17 Range/Units 21:24 21:24 21:24 WBC 6.6 (3.8-10.6) k/uL RBC 4.37 (3.80-5.40) m/uL Hgb 13.8 (11.4-16.0) gm/dL Hct 41.0 (34.0-46.0) % MCV 93.9 (80.0-100.0) fL MCH 31.5 (25.0-35.0) pg MCHC 33.6 (31.0-37.0) g/dL RDW 12.7 (11.5-15.5) % Plt Count 233 (150-450) k/uL Neutrophils % 70 % Lymphocytes % 19 % Monocytes % 7 % Eosinophils % 3 % Basophils % 0 % Neutrophils # 4.6 (1.3-7.7) k/uL Lymphocytes # 1.2 (1.0-4.8) k/uL Monocytes # 0.5 (0-1.0) k/uL Eosinophils # 0.2 (0-0.7) k/uL Basophils # 0.0 (0-0.2) k/uL PT (9.0-12.0) sec INR (<1.2) APTT (22.0-30.0) sec Sodium 142 (137-145) mmol/L Potassium 3.8 (3.5-5.1) mmol/L Chloride 103 (98-107) mmol/L Carbon Dioxide 26 (22-30) mmol/L Anion Gap 13 mmol/L BUN 19 H (7-17) mg/dL Creatinine 1.00 (0.52-1.04) mg/dL Est GFR (MDRD) Af Amer >60 (>60 ml/min/1.73 sqM) Est GFR (MDRD) Non-Af 55 (>60 ml/min/1.73 sqM) Glucose 155 H (74-99) mg/dL Calcium 10.0 (8.4-10.2) mg/dL Magnesium 2.1 (1.6-2.3) mg/dL Total Bilirubin 0.4 (0.2-1.3) mg/dL AST 34 (14-36) U/L ALT 38 (9-52) U/L Alkaline Phosphatase 72 (38-126) U/L Total Creatine Kinase 79 (30-135) U/L CK-MB (CK-2) 0.8 (0.0-2.4) ng/mL CK-MB (CK-2) Rel Index 1.0 Troponin I <0.012 (0.000-0.034) ng/mL Total Protein 7.3 (6.3-8.2) g/dL Albumin 4.1 (3.5-5.0) g/dL Lipase 146 (23-300) U/L 07/09/17 Range/Units 21:24 WBC (3.8-10.6) k/uL RBC (3.80-5.40) m/uL Hgb (11.4-16.0) gm/dL Hct (34.0-46.0) % MCV (80.0-100.0) fL MCH (25.0-35.0) pg MCHC (31.0-37.0) g/dL RDW (11.5-15.5) % Plt Count (150-450) k/uL Neutrophils % % Lymphocytes % % Monocytes % % Eosinophils % % Basophils % % Neutrophils # (1.3-7.7) k/uL Lymphocytes # (1.0-4.8) k/uL Monocytes # (0-1.0) k/uL Eosinophils # (0-0.7) k/uL Basophils # (0-0.2) k/uL PT 9.9 (9.0-12.0) sec INR 1.0 (<1.2) APTT 22.4 (22.0-30.0) sec Sodium (137-145) mmol/L Potassium (3.5-5.1) mmol/L Chloride (98-107) mmol/L Carbon Dioxide (22-30) mmol/L Anion Gap mmol/L BUN (7-17) mg/dL Creatinine (0.52-1.04) mg/dL Est GFR (MDRD) Af Amer (>60 ml/min/1.73 sqM) Est GFR (MDRD) Non-Af (>60 ml/min/1.73 sqM) Glucose (74-99) mg/dL Calcium (8.4-10.2) mg/dL Magnesium (1.6-2.3) mg/dL Total Bilirubin (0.2-1.3) mg/dL AST (14-36) U/L ALT (9-52) U/L Alkaline Phosphatase (38-126) U/L Total Creatine Kinase (30-135) U/L CK-MB (CK-2) (0.0-2.4) ng/mL CK-MB (CK-2) Rel Index Troponin I (0.000-0.034) ng/mL Total Protein (6.3-8.2) g/dL Albumin (3.5-5.0) g/dL Lipase (23-300) U/L - Radiology Data Radiology results: report reviewed (Chest x-rays negative for acute disease), image reviewed Critical Care Time Critical Care Time: Yes Total Critical Care Time: 31 Disposition Clinical Impression: Chest pain Disposition: ADMITTED IP TO THIS [facility] Condition: Undetermined
[2017-07-09] MEDS ORDERED: HEPARIN SODIUM,PORCINE 5,000 UNIT/ML 1 ML VIAL IV ONE (23:39)
[2017-07-09] MEDS ORDERED: ASPIRIN 81 MG PO STA (23:39)
[2017-07-09] MEDS ORDERED: MORPHINE SULFATE 4 MG/ML SYRINGE IV PRN (23:39)
[2017-07-09] MEDS ORDERED: HEPARIN SODIUM,PORCINE 5,000 UNIT/ML 1 ML VIAL IV PRN (23:39)
[2017-07-09] MEDS ORDERED: NITROGLYCERIN SL TABS 0.4 MG TAB SUBLINGUAL PRN (23:39)
[2017-07-09] MEDS ORDERED: HEPARIN SOD,PORK IN 0.45% NACL 25,000 UNIT in 0.45% NACL 1 500ML.BAG IV SCH (23:45)
[2017-07-10 03:10] LABS: Creatine Kinase 66 U/L (30-135)
[2017-07-10 03:24] LABS: Creatine Kinase MB 0.6 ng/mL (0.0-2.4); Troponin I <0.012 ng/mL (0.000-0.034)
[2017-07-10 06:37] LABS: Mean Platelet Volume 7.3; Platelet Count 238 k/uL (150-450)
[2017-07-10 07:09] LABS: Cholesterol 199 mg/dL (<200); HDL Cholesterol 57 mg/dL (40-60); LDL Cholesterol,Calculated 111 mg/dL (0-99); Triglycerides 154 mg/dL (<150)
[2017-07-10] MEDS: METOPROLOL TARTRATE 25 MG TAB PO SCH ×2 (08:03→08:07)
[2017-07-10] MEDS ORDERED: AMINOPHYLLINE 500 MG/20 ML VIAL IV PRN (08:48)
[2017-07-10] MEDS ORDERED: REGADENOSON 0.4 MG/5 ML SYRINGE IV ONE (08:48)
[2017-07-10] MEDS ORDERED: ROSUVASTATIN 10 MG PO SCH (09:00)
[2017-07-10] MEDS ORDERED: CLOPIDOGREL 75 MG TAB PO SCH (09:00)
[2017-07-10] MEDS ORDERED: ASPIRIN 325 MG TAB PO SCH (09:00)
[2017-07-10] MEDS ORDERED: ATORVASTATIN 80 MG TAB PO SCH (09:00)
[2017-07-10] MEDS ORDERED: DOBUTamine DRIP for NUC MED 250 MG in DEXTROSE/WATER 1 250ML.BAG IV ONE (09:25)
[2017-07-10 10:25] LABS: Creatine Kinase 57 U/L (30-135)
[2017-07-10 10:36] LABS: Creatine Kinase MB 0.6 ng/mL (0.0-2.4); Troponin I <0.012 ng/mL (0.000-0.034)
--- NOTE | 2017-07-10 12:39 | ECHOS ---
STRESS ECHOCARDIOGRAM DOBUTAMINE ECHO REPORT DATE OF SERVICE: 07/10/2017 INDICATIONS: Chest pain. MEDICATIONS: BASELINE HEART RATE: 48 BASELINE BLOOD PRESSURE: 142/77 MAXIMUM HEART RATE: 131 MAXIMUM BLOOD PRESSURE: 176/98 85% MPHR: 129 100% MPHR: 152 METS: MAXIMUM STAGE REACHED: TOTAL EXERCISE TIME: CLINICAL INFORMATION: Baseline EKG revealed normal sinus rhythm with a sinus bradycardia and no significant changes. Patient was administered dobutamine as per protocol and the heart rate went up to 131 beats per minute which is more than 85% of predicted maximal. She did not have any significant symptoms. The EKG did not reveal any ST-segment changes to indicate ischemia. Nonspecific upsloping ST-segment changes were noted at peak exercise without any associated symptoms of angina. By EKG criteria, this is considered unremarkable dobutamine stress test with nonspecific upsloping ST-segment changes. Occasional PACs were also noted. Baseline echo images revealed normal wall motion and wall thickening of all segments. At peak exercise, there was good augmentation of left ventricular wall motion and wall thickening of all segments suggesting that there is no evidence of stress-induced ischemia on this dobutamine echocardiogram. IMPRESSION: 1. By EKG criteria this is an unremarkable dobutamine stress test. 2. Normal dobutamine stress echocardiogram without any evidence of ischemia. MMODL / IJN: [id number] /
[2017-07-10 13:43] VITALS: BP 131/74; PULSE 48; RESP 17; TEMP 98.5
[2017-07-10] MEDS ORDERED: MORPHINE ORAL SOLN 10 MG/5 ML CUP PO PRN (15:04)
--- NOTE | 2017-07-10 17:57 | HP ---
HISTORY AND PHYSICAL DATE OF SERVICE: 07/10/2017. CHIEF COMPLAINT: Chest pain. BRIEF HISTORY: This patient is a 58-year-old female patient with past medical history of hypertension, hyperlipidemia, and history of coronary artery disease, who presents to ED with a complaint of chest pain which the patient rates the pain as severe in the in the anterior chest and is similar to the chest pain she had with a prior SC. Patient claims she does have history of SC in the past at which time she had a cardiac catheterization with stent placement. The patient has no nausea, vomiting, no fever, no cough, and congestion. She has a past medical history significant for history of hypertension, hyperlipidemia, history of coronary artery disease with CAD with previous SC and PCI, seasonal allergies, degenerative joint disease. PAST SURGICAL HISTORY: Significant for: 1. Appendectomy. 2. Heart catheterization with stent placement. 3. Hysterectomy. 4. Depression. SOCIAL HISTORY: Patient has no history of smoking or alcohol abuse. No IV drug abuse. FAMILY HISTORY: Significant for CVA and TIA in mother and history of myocardial infarction in father. ALLERGIES: Patient is ALLERGIC TO AMOXICILLIN, BENZOCAINE, KEFLEX, AUGMENTIN, PROCAINE, NEOMYCIN, AMLODIPINE, ZYRTEC, DILAUDID IV, ORAL AND IODINE CONTRAST ORAL AND IV, NSAID, STATIN, AND VERAPAMIL. MEDICATIONS: Patient is on: 1. Aspirin 81 mg daily. 2. Metoprolol 25 mg daily. 3. Crestor 10 mg daily. 4. Plavix 75 mg daily. 5. Nitroglycerin sublingual 0.4 mg q.5h minutes p.r.n. REVIEW OF SYSTEMS: CONSTITUTIONAL: Patient denies any fever, chills or unexplained weight loss. HEENT: No vision or hearing loss. RESPIRATORY SYSTEM: No shortness of breath or wheezing. CARDIOVASCULAR SYSTEM: Chest pain as described above. ABDOMEN/GI: No nausea, vomiting or diarrhea. GENITOURINARY: Denies hematuria or dysuria. MUSCULOSKELETAL: Patient denies any joint and muscle pains. NEUROLOGICAL SYSTEM: Denies dizziness or lightheadedness or headaches. ENDOCRINE: No polyuria, polydipsia. SKIN: Denies any rashes or pigmentation. The rest of 14-point review of system is unremarkable. PHYSICAL EXAM: VITAL SIGNS: Temperature 98.7, pulse 76, respiration 18, blood pressure 131/64, O2 saturation 100. GENERAL PHYSICAL EXAMINATION: Patient is awake, alert, oriented x3. She is in no acute distress. HEENT: Atraumatic, normocephalic. Pupils equal and reactive to light. Extraocular movements intact. Buccal mucosa is fair. NECK: Supple. No goiter or lymphadenopathy. JVD is negative. No carotid bruit heard next. RESPIRATORY SYSTEM: Lungs are clear to auscultate. No rales, rhonchi, or wheezes. CARDIOVASCULAR EXAMINATION: Heart is regular rate and rhythm without any murmurs or gallop rhythm. ABDOMEN/GI: Abdomen is soft, nontender, nondistended. No guarding or rigidity. Bowel sounds positive. EXTREMITY EXAMINATION: The patient has full range of motion all 4 extremities. No edema, clubbing, cyanosis. BACK EXAMINATION: Normal. NEUROLOGICAL EXAMINATION: Patient is awake, alert, oriented x3. She has no gross motor or sensory deficit. PSYCHIATRIC EXAMINATION: Patient has normal affect and mood. Normal judgment. SKIN EXAMINATION: Skin is warm, dry, warm and dry and intact. LABS AND X-RAY DATA: EKG shows sinus bradycardia. Chemical profile: Sodium 142, potassium 3.8, chloride 1 3, bicarb 26, BUN 19, creatinine 1, glucose 155. CBC: White blood count 6.6, hemoglobin 13.8, hematocrit 41, and platelet count of 233. Troponins are negative. ASSESSMENT: 1. Chest pain rule out acute coronary syndrome. 2. Mild renal injury. 3. Hypertension. 4. Coronary artery disease. 5. Hyperlipidemia. PLAN: Admit the patient to telemetry. Monitor cardiac enzymes and EKGs. Will consult Cardiology and resume home medications. Echocardiogram and possible stress test if so recommended by Cardiology. MMODL / IJN: [id number] /
--- NOTE | 2017-07-10 20:48 | CONS ---
CONSULTATION Grace Marin is a 66-year-old lady with a history of CAD, hypertension who came into the hospital with episode of chest discomfort. This lady underwent stenting of circumflex vessel performed sometime in January. She is a patient of Dr. Gruber and Dr. Pascual did PCI. She came into the hospital with complaints of anterior sharp chest pain that seemed to persist. Denies any nausea or vomiting. Quality of the pain is atypical but seemed to persist. Even this morning when I saw her, she was complaining of achy sensation with some tenderness. EKG revealed nonspecific ST depression. She has otherwise no major issues or concerns. Two sets of troponins are normal. PAST MEDICAL HISTORY: 1. CAD with stenting of circumflex in January. 2. Hypertension. 3. Hyperlipidemia. 4. Status post appendectomy. ALLERGIES: SHE HAS A NUMBER OF ALLERGIES. PLEASE REFER TO THE CHART. PENICILLIN, KEFLEX, AMLODIPINE, THERE IS A QUESTION OF DYE ALLERGY, STATIN AGENTS, ALLERGY OF SOME KIND, CERTAIN STATIN AGENTS. MEDICATIONS: That she takes are: Crestor 10 mg daily, metoprolol 25 mg daily, aspirin 81 mg daily, Plavix 75 mg and sublingual nitroglycerin p.r.n. EXAMINATION: Pressure is 130/70, pulse rate is about 62 per minute and regular. HEENT unremarkable. Fundus was not examined by me. NECK: Supple. No JVD. I do not hear a carotid bruit. There is no thyromegaly. Heart exam reveals S1, S2 are normal in all areas without a rub, murmur or gallop. Lungs are clear. ABDOMEN: Soft, nontender. Lower extremities reveal normal pulses. No edema. Central nervous system is normal. EKG revealed sinus mechanism, nonspecific ST depression. LAB DATA: Revealed unremarkable troponins. IMPRESSION: 1. Atypical chest pain in a patient with recent PCI 5 months ago. Cannot exclude this being a manifestation of coronary artery disease. 2. Hypertension. 3. Hyperlipidemia. RECOMMENDATIONS: I am recommending a dobutamine stress echo and if this is normal she can be discharged. I discussed my thoughts in detail with the patient. Thank you very much for the consult. MMODL / IJN: [id number] /
[2017-07-10] MEDS ORDERED: METOPROLOL TARTRATE 12.5 MG TAB PO SCH (21:00)
[2017-07-10] MEDS ORDERED: NON-FORMULARY DRUG (Rosuvastatin 10 MG) PO SCH (21:00)
[2017-07-11] MEDS ORDERED: ASPIRIN 81 MG PO SCH (09:00)
== END 2017-07-10 16:37 | disposition home or self-care (01) ==
LOC: EC 21:02 → 6SEL 23:42
PROVIDERS: ADMIT Hospitalist; ATTEND Hospitalist
DX: R07.89 Other chest pain (principal); I25.10 Atherosclerotic heart disease of native coronary artery without angina pectoris; Z95.5 Presence of coronary angioplasty implant and graft; I10 Essential (primary) hypertension; E78.5 Hyperlipidemia, unspecified; I25.2 Old myocardial infarction; M19.90 Unspecified osteoarthritis, unspecified site; F32.9 Major depressive disorder, single episode, unspecified; Z79.02 Long term (current) use of antithrombotics/antiplatelets; Z79.82 Long term (current) use of aspirin; Z79.899 Other long term (current) drug therapy; Z88.0 Allergy status to penicillin; Z91.041 Radiographic dye allergy status; Z88.5 Allergy status to narcotic agent; Z88.8 Allergy status to other drugs, medicaments and biological substances; Z88.6 Allergy status to analgesic agent; Z88.4 Allergy status to anesthetic agent; Z88.1 Allergy status to other antibiotic agents; Z82.49 Family history of ischemic heart disease and other diseases of the circulatory system; Z82.3 Family history of stroke
CPT/HCPCS: 96366; 96376 ×2; 96365 ×2; 99291 ×2; 36415; 94760; 93005; 93017; 93350; 80061; 80053; 82550 ×2; 82553 ×2; 83690; 83735; 84484 ×2; 85025; 85049; 85610; 85730 ×2; 71046; G0378 ×2; J1644 ×2; J1250

== ENCOUNTER 2017-12-06 19:39 | Observation (INO) | payer MEDICARE ==
[2017-12-06 23:09] VITALS: BMI 31.0
[2017-12-06] MEDS ORDERED: hydrALAZINE HCL 25 MG TAB PO PRN (23:41)
[2017-12-06 23:45] LABS: Calcium 9.1 mg/dL (8.4-10.2)
[2017-12-06 23:52] LABS: Basophils % (A) 0 %; Eosinophils # (A) 0.1 k/uL (0-0.7); Eosinophils % (A) 2 %; HCT 40.3 % (34.0-46.0); HGB 13.4 gm/dL (11.4-16.0); Lymphocytes # (A) 1.3 k/uL (1.0-4.8); Lymphocytes % (A) 16 %; MCH 31.2 pg (25.0-35.0); MCHC 33.3 g/dL (31.0-37.0); MCV 93.7 fL (80.0-100.0); Mean Platelet Volume 7.6; Monocytes # (A) 0.4 k/uL (0-1.0); Monocytes % (A) 5 %; Neutrophils # (A) 5.8 k/uL (1.3-7.7); Neutrophils % (A) 75 %; Platelet Count 251 k/uL (150-450); RDW 12.7 % (11.5-15.5); WBC 7.7 k/uL (3.8-10.6)
[2017-12-07] MEDS: METOPROLOL TARTRATE 12.5 MG TAB PO SCH ×3 (00:30→19:31)
[2017-12-07] MEDS: NITROGLYCERIN OINT 1 INCH/GM PACKET TOPICAL SCH ×5 (00:42→19:33)
[2017-12-07 06:38] LABS: INR 1.3 (<1.2)
[2017-12-07] MEDS ORDERED: ACETAMINOPHEN TAB 325 MG TAB PO PRN (10:32)
[2017-12-07] MEDS: ASPIRIN 81 MG PO SCH (10:45)
[2017-12-07] MEDS: CLOPIDOGREL 75 MG TAB PO SCH (10:45)
[2017-12-07] MEDS: CRESTOR 10 MG PO SCH (10:46)
[2017-12-07] MEDS ORDERED: NITROGLYCERIN SL TABS 0.4 MG TAB SUBLINGUAL PRN (14:14)
[2017-12-07] MEDS ORDERED: TEMAZEPAM 15 MG CAP PO PRN (14:14)
[2017-12-07] MEDS ORDERED: ALPRAZolam 0.25 MG TAB PO PRN (14:14)
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
--- NOTE | 2017-12-07 15:47 | HP ---
HISTORY AND PHYSICAL DATE OF SERVICE: 12/07/2017 CHIEF COMPLAINTS: Chest pain. HISTORY OF PRESENT ILLNESS: This 67-year-old woman with a past medical history of multiple medical problems including hypertension, hyperlipidemia, myocardial infarction, history of CAD and stent being followed by Dr. Chon De Anda in the outpatient setting was recently admitted to [facility] and in June the patient had a stress test which was negative apparently and the patient currently complaining of chest pain in the anterior part of the chest which is sharp in character below the breast and also left-sided of chest and the patient came to [facility] and subsequently transferred to [facility] for further evaluation and treatment. Patient was admitted to the hospital recently for diverticulitis. There is no history of fever, rigors. No headache , loss of consciousness, seizures. No history of aggravating or relieving factors of the pain and no other symptoms of shortness of breath, sweating or palpitation. PAST MEDICAL: Hypertension, hyperlipidemia, history of coronary artery disease, stent circumflex, depression. MEDICATIONS: Prior to admission include home medications are: 1. Crestor 10 mg q.h.s. 2. Nitrostat 0.4 mg p.r.n. 3. Lopressor 12.5 mg b.i.d. 4. Plavix 75 mg p.o. daily. 5. Ecotrin 81 mg p.o. daily. ALLERGIES: MULTIPLE ALLERGIES OF AMOXICILLIN, BENZOCAINE, CEPHALEXIN, CLAVULANIC ACID, PENICILLIN, PROCAINE, NEOMYCIN, AMLODIPINE, CETIRIZINE, HYDROMORPHONE, IODINATED CONTRAST AGENTS, STATINS, FAMILY HISTORY: History of myocardial infarction in the family. SOCIAL HISTORY: No history of smoking, no history of alcohol. REVIEW OF SYSTEMS: ENT: No diminished hearing or vision. CARDIOVASCULAR: As mentioned earlier. RESPIRATORY: As mentioned earlier. GI: No nausea. : No dysuria. NERVOUS SYSTEM: No numbness or weakness. ALLERGY/IMMUNOLOGY: No asthma. MUSCULOSKELETAL: As mentioned earlier. HEMATOLOGY: No history of anemia. ENDOCRINE: No history of diabetes or hypothyroidism. CONSTITUTIONAL: As mentioned earlier. DERMATOLOGY: Negative. RHEUMATOLOGY: Negative. PSYCHIATRY As mentioned earlier. PHYSICAL EXAMINATION: Alert, oriented x3. Pulse 49, blood pressure 108/63, respiration 14, temperature 98.2, pulse ox 97% on room air. HEENT: Conjunctivae normal. Oral mucosa moist. NECK: No jugular venous distention. No carotid bruit. No lymph node enlargement. CARDIOVASCULAR: S1, S2. No S3, no S4. RESPIRATORY: Breath sounds diminished in the bases. No rhonchi, no crackles. ABDOMEN: Soft, nontender. No mass palpable. LEGS: No edema, no swelling. NERVOUS SYSTEM: Higher functions as mentioned earlier, moves all 4 limbs. No focal motor deficits. LYMPHATICS: No lymph node of the neck, axillae or groin. SKIN: No ulcer, rash or bleeding. LAB STUDIES: At this time are not available. ASSESSMENT: 1. Chest pain possible unstable angina. 2. History of coronary artery disease, stent circumflex. 3. History of hypertension. 4. Hyperlipidemia. 5. History of diverticulitis recently. 6. History of myocardial infarction. 7. History of hysterectomy. 8. History of depression. RECOMMENDATIONS AND DISCUSSION: This 67-year-old woman who presented with multiple complex medical issues, we will monitor the patient closely. Continue the current treatment, continue with antiplatelet agents. Cardiology consultation. Otherwise, when I would recommend resume the home medications. Prognosis guarded because of multiple complex medical issues. Further recommendations to follow. Copy forwarded to Dr. De Anda, who is the primary physician. MMODL / IJN: [id number] / DEYSI
[2017-12-07 19:31] VITALS: RESP 18
[2017-12-07] MEDS: HEPARIN SODIUM,PORCINE 5,000 UNIT/ML 1 ML VIAL SQ SCH (19:31)
[2017-12-08] MEDS: NITROGLYCERIN OINT 1 INCH/GM PACKET TOPICAL SCH ×2 (03:40→12:38)
[2017-12-08 07:43] LABS: Basophils % (A) 1 %; Eosinophils # (A) 0.2 k/uL (0-0.7); Eosinophils % (A) 4 %; HCT 40.8 % (34.0-46.0); HGB 13.4 gm/dL (11.4-16.0); Lymphocytes # (A) 1.2 k/uL (1.0-4.8); Lymphocytes % (A) 21 %; MCH 31.3 pg (25.0-35.0); MCHC 32.9 g/dL (31.0-37.0); MCV 95.3 fL (80.0-100.0); Mean Platelet Volume 7.7; Monocytes # (A) 0.5 k/uL (0-1.0); Monocytes % (A) 8 %; Neutrophils # (A) 3.8 k/uL (1.3-7.7); Neutrophils % (A) 63 %; Platelet Count 258 k/uL (150-450); RBC 4.28 m/uL (3.80-5.40); RDW 13.1 % (11.5-15.5)
[2017-12-08] MEDS: ASPIRIN 81 MG PO SCH (08:01)
[2017-12-08] MEDS: CLOPIDOGREL 75 MG TAB PO SCH (08:01)
[2017-12-08] MEDS: HEPARIN SODIUM,PORCINE 5,000 UNIT/ML 1 ML VIAL SQ SCH (08:01)
[2017-12-08] MEDS: METOPROLOL TARTRATE 12.5 MG TAB PO SCH (08:02)
[2017-12-08 08:16] LABS: Calcium 9.3 mg/dL (8.4-10.2); Potassium 4.4 mmol/L (3.5-5.1)
[2017-12-08] MEDS: CRESTOR 10 MG PO SCH (09:01)
[2017-12-08 11:48] VITALS: BP 152/86; PULSE 55; TEMP 97.4
--- NOTE | 2017-12-08 15:03 | P.CRDCN ---
History of Present Illness Consult date: 12/07/17 Requesting physician: Yasir Spencer Consult reason: chest pain Chief complaint: Chest pain History of present illness: This is a 67-year-old female with known history of hypertension, hyperlipidemia, coronary artery disease with prior stent placement, recently was in the hospital in June which time she underwent a stress test which was negative for any reversible ischemia. Patient initially presented to [facility] on this occasion with symptoms of sharp stabbing chest pains, very atypical in nature. Patient is under a considerable amount of stress at home because her has been unwell for some time and she feels overwhelmed taking care of him. Her EKG on arrival here showed a sinus bradycardia. Blood pressure 150/86, heart rate in the 50s, 97% on room air. White blood cell count 7.7, hemoglobin 13.4, platelet count 251. Sodium 138, potassium 4.0, BUN 15, creatinine 0.9. Troponin 0.012 and magnesium 2.1. Past Medical History Past Medical History: Hyperlipidemia, Hypertension, Myocardial Infarction (ME) Additional Past Medical History / Comment(s): ME in January 2017 Last Myocardial Infarction Date:: January 2017 History of Any Multi-Drug Resistant Organisms: None Reported Past Surgical History: Appendectomy, Heart Catheterization With Stent, Hysterectomy Past Anesthesia/Blood Transfusion Reactions: Previous Problems w/ Anesthesia Date of Last Stent Placement:: 01/27/17 Past Psychological History: Depression Smoking Status: Never smoker Past Alcohol Use History: None Reported Past Drug Use History: None Reported - Past Family History Father Family Medical History: Myocardial Infarction (ME) Mother Family Medical History: CVA/TIA Medications and Allergies Home Medications Medication Instructions Recorded Confirmed Type Aspirin EC [Ecotrin Low Dose] 81 mg PO DAILY 01/27/17 12/07/17 History Clopidogrel [Plavix] 75 mg PO DAILY #30 tab 01/29/17 12/07/17 Rx Nitroglycerin Sl Tabs [Nitrostat] 0.4 mg SUBLINGUAL Q5M PRN #25 tab 01/29/17 Rx Metoprolol Tartrate [Lopressor] 12.5 mg PO BID 07/09/17 12/07/17 History Rosuvastatin [Crestor] 10 mg PO HS 07/09/17 12/07/17 History Allergies Allergy/AdvReac Type Severity Reaction Status Date / Time amoxicillin [From Augmentin] Allergy Severe Anaphylaxis Verified 12/07/17 08:35 benzocaine Allergy Severe Anaphylaxis Verified 12/07/17 08:35 cephalexin [From Keflex] Allergy Severe Anaphylaxis Verified 12/07/17 08:35 clavulanic acid Allergy Severe Anaphylaxis Verified 12/07/17 08:35 [From Augmentin] Penicillins Allergy Severe Anaphylaxis Verified 12/07/17 08:35 procaine [From Novocain] Allergy Severe Anaphylaxis Verified 12/07/17 08:35 neomycin AdvReac Severe Anaphylaxis Verified 12/07/17 08:35 amlodipine AdvReac KIDNEY Verified 12/07/17 08:35 FAILURE cetirizine [From Zyrtec] AdvReac URINARY Verified 12/07/17 08:35 RETENTION hydromorphone [From Dilaudid] AdvReac GI UPSET Verified 12/07/17 08:35 Iodinated Contrast- Oral and AdvReac GI UPSET Verified 12/07/17 08:35 IV Dye NSAIDS (Non-Steroidal AdvReac GI UPSET Verified 12/07/17 08:35 Anti-Inflamma Zyokuub-[id number]-Grj Reductase AdvReac EXTREME Verified 12/07/17 08:35 Inhibitor JOINT PAIN verapamil AdvReac KIDNEY Verified 12/07/17 08:35 FAILURE Physical Exam Vitals: Vital Signs Temp Pulse Resp BP Pulse Ox 12/07/17 04:00 98.3 F 49 L 14 108/63 97 12/07/17 00:00 52 L 20 132/62 94 L Intake and Output 12/06/17 12/07/17 12/07/17 22:59 06:59 14:59 Intake Total 460 Balance 460 Intake: Oral 460 Other: # Voids 1 1 # Bowel Movements 0 Weight 74.6 kg 74.6 kg PHYSICAL EXAMINATION: GENERAL: 67-year-old female in no acute distress at the time of my examination HEENT: Head is atraumatic, normocephalic. Pupils equal, round. Sclera anicteric. Conjunctiva are clear. Mucous membranes of the mouth are moist. Neck is supple. There is no elevated jugular venous pressure.] bruit is heard. HEART EXAMINATION: Heart S1, S2 normal. No murmur or gallop heard. CHEST EXAMINATION: Lungs are clear to auscultation and precussion. No chest wall tenderness is noted on palpation or with deep breathing. ABDOMEN: Soft, nontender. Bowel sounds are heard. No organomegaly noted. EXTREMITIES: 2+ peripheral pulses with no evidence of peripheral edema and no calf tenderness noted. NEUROLOGIC patient is awake, alert and oriented ?-3. . Results 12/08/17 06:31 12/08/17 06:31 Cardiac Enzymes 12/06/17 Range/Units 23:22 Troponin I <0.012 (0.000-0.034) ng/mL Coagulation 12/07/17 Range/Units 05:34 PT 12.0 (9.0-12.0) sec CBC 12/06/17 Range/Units 23:22 WBC 7.7 (3.8-10.6) k/uL RBC 4.30 (3.80-5.40) m/uL Hgb 13.4 (11.4-16.0) gm/dL Hct 40.3 (34.0-46.0) % Plt Count 251 (150-450) k/uL Comprehensive Metabolic Panel 12/06/17 Range/Units 23:22 Sodium 138 (137-145) mmol/L Potassium 4.0 (3.5-5.1) mmol/L Chloride 106 (98-107) mmol/L Carbon Dioxide 25 (22-30) mmol/L BUN 15 (7-17) mg/dL Creatinine 0.90 (0.52-1.04) mg/dL Glucose 137 H (74-99) mg/dL Calcium 9.1 (8.4-10.2) mg/dL Current Medications Generic Name Dose Route Start Last Admin Trade Name Freq PRN Reason Stop Dose Admin Acetaminophen 650 mg 12/07/17 10:32 12/07/17 10:45 Tylenol Tab PO 650 mg Q6HR PRN Administration Fever and/ or Mild Pain Aspirin 81 mg 12/07/17 09:00 12/07/17 10:45 Aspirin PO 81 mg DAILY LEROY Administration Clopidogrel Bisulfate 75 mg 12/07/17 09:00 12/07/17 10:45 Plavix PO 75 mg DAILY LEROY Administration Hydralazine HCl 25 mg 12/06/17 23:41 Apresoline PO QID PRN Blood Pressure - High Metoprolol Tartrate 12.5 mg 12/06/17 23:45 12/07/17 12:16 Lopressor PO Not Given BID [facility] Nitroglycerin 1 inch 12/07/17 00:45 12/07/17 12:16 Nitro-Bid Oint TOPICAL Not Given Q6HR LEROY Crestor 10mg - ( 10 mg 12/07/17 09:00 12/07/17 10:46 Rosuvastatin 10 Mg) PO Not Given DAILY LEROY Intake and Output 12/06/17 12/07/17 12/07/17 22:59 06:59 14:59 Intake Total 460 Balance 460 Intake: Oral 460 Other: # Voids 1 1 # Bowel Movements 0 Weight 74.6 kg 74.6 kg 12/06/17 23:22 12/06/17 23:22 EKG Interpretations (text) EKG shows bradycardia Assessment and Plan Plan: Assessment and plan #1 chest pain, atypical for acute coronary syndrome, pleuritic in nature. Troponins negative #2 known history of coronary artery disease with prior circumflex stenting, most recent stress test was performed in June of this year which is negative for any reversible ischemia 3 hypertension #4 hyperlipidemia #5 diverticulitis #6 depression and increased stress Plan We will review the echocardiogram with Doppler study. Troponins have been negative. Continue current medications. DNP note has been reviewed, I agree with a documented findings and plan of care. Patient was seen and examined.
== END 2017-12-08 19:18 | disposition home or self-care (01) ==
LOC: INTOOBSV 21:49 → 6SEL 21:49
PROVIDERS: ADMIT Internal Medicine; ATTEND Internal Medicine
DX: R07.89 Other chest pain (principal); F43.23 Adjustment disorder with mixed anxiety and depressed mood; I25.10 Atherosclerotic heart disease of native coronary artery without angina pectoris; K57.90 Diverticulosis of intestine, part unspecified, without perforation or abscess without bleeding; R00.1 Bradycardia, unspecified; I10 Essential (primary) hypertension; E78.5 Hyperlipidemia, unspecified; F32.9 Major depressive disorder, single episode, unspecified; Z79.02 Long term (current) use of antithrombotics/antiplatelets; Z79.82 Long term (current) use of aspirin; Z79.899 Other long term (current) drug therapy; Z88.5 Allergy status to narcotic agent; Z88.0 Allergy status to penicillin; Z88.8 Allergy status to other drugs, medicaments and biological substances; Z88.6 Allergy status to analgesic agent; Z88.4 Allergy status to anesthetic agent; Z88.1 Allergy status to other antibiotic agents; Z91.041 Radiographic dye allergy status; I25.2 Old myocardial infarction; Z95.5 Presence of coronary angioplasty implant and graft; Z90.89 Acquired absence of other organs; Z90.710 Acquired absence of both cervix and uterus; Z82.49 Family history of ischemic heart disease and other diseases of the circulatory system; Z82.3 Family history of stroke
CPT/HCPCS: 96372 ×2; 80048 ×2; 83735; 84484; 85025 ×2; 85610; G0378 ×3; G0379; J1644 ×2

== ENCOUNTER → 2020-12-20 | Outpatient (CLI) | payer MEDICARE ==
[2020-12-20 17:40] LABS: African American GFR (CKD) 58.1 (60.0-200.0); Albumin 4.4 g/dL (3.80-4.90); Albumin/Globulin Ratio 1.47 (1.60-3.17); Anion Gap 10.3 mmol/L (4.00-12.00); BUN/Creat Ratio 16.36 Ratio (12.00-20.00); Carbon Dioxide 28.7 mmol/L (21.6-31.8); Chol/HDL Ratio 3.69; LDL Cholesterol,Calculated 118.8 mg/dL (0.0-131.0); Non-African American GFR(CKD) 50.1 (60.0-200.0); Potassium 3.9 mmol/L (3.5-5.5); Total Bilirubin 0.9 mg/dL (0.2-1.2); Total Protein 7.4 g/dL (6.2-8.2); VLDL Calculation 37.2 mg/dL (5.00-40.00)
== END | disposition home or self-care (01) ==
LOC: LABWHC1 08:08
PROVIDERS: ATTEND Internal Medicine
DX: I10 Essential (primary) hypertension (principal); E78.5 Hyperlipidemia, unspecified
CPT/HCPCS: 36415; 80053; 80061; 82550

== ENCOUNTER → 2021-06-06 | Outpatient (CLI) | payer MEDICARE ==
--- NOTE | 2021-06-06 14:04 | CT ---
EXAMINATION TYPE: CT hip LT wo con DATE OF EXAM: 06/06/2021 COMPARISON: None. HISTORY: Lt hip pain CT DLP: 249 mGycm Automated exposure control for dose reduction was used. FINDINGS: Csxy-[id number]-[id number] axial joint space loss with mild to moderate acetabular spurring greatest along the superior lateral aspect. Small spur superior head neck junction of the proximal left femur. Femoral h ead shape is maintained. There is some spurring and mild edema present at level of the greater trocha nter suggesting trochanteric bursitis. No acute displaced fracture is seen. No suspicious groin herni a or adenopathy. Muscle bulk is maintained. Visualized portion of pelvis shows some diverticula in the sigmoid colon. Uterus is suspected surgica lly absent. IMPRESSION: As above.
== END | disposition home or self-care (01) ==
LOC: RADCTMAIN 13:11
PROVIDERS: ATTEND Orthopaedic Surgery
DX: M16.12 Unilateral primary osteoarthritis, left hip (principal); M25.752 Osteophyte, left hip; K57.30 Diverticulosis of large intestine without perforation or abscess without bleeding; R60.0 Localized edema

== ENCOUNTER → 2021-08-13 | Outpatient (CLI) | payer MEDICARE ==
--- NOTE | 2021-08-14 10:27 | MM ---
Reason for exam: screening (asymptomatic). Last mammogram was performed 1 year and 4 months ago. History: Patient is postmenopausal. Family history of breast cancer in sister at age 45 and breast cancer in sister at age 59. Physical Findings: A clinical breast exam by your physician is recommended on an annual basis and results should be correlated with mammographic findings. MG 3D Screening Mammo W/Cad Bilateral CC and MLO view(s) were taken. Prior study comparison: April 02, 2020, mammogram, performed at [facility]. March 15, 2019, mammogram, performed at [facility]. November 20, 2017, mammogram, performed at [facility]. There are scattered fibroglandular densities. There are benign appearing round calcifications in the left breast. There is no discrete abnormality. ASSESSMENT: Benign, BI-RAD 2 RECOMMENDATION: Routine screening mammogram of both breasts in 1 year.
== END | disposition home or self-care (01) ==
LOC: RADMAMWWP 16:45
PROVIDERS: ATTEND Internal Medicine
DX: Z12.31 Encounter for screening mammogram for malignant neoplasm of breast (principal); Z78.0 Asymptomatic menopausal state; Z80.3 Family history of malignant neoplasm of breast
CPT/HCPCS: 77063; 77067

== ENCOUNTER → 2022-01-15 | Outpatient (CLI) | payer MEDICARE ==
[2022-01-15 17:39] LABS: ALT 28 U/L (8-44); AST 29 U/L (13-35); Chol/HDL Ratio 3.86 Ratio; LDL Cholesterol,Calculated 130.8 mg/dL (0.0-131.0)
== END | disposition home or self-care (01) ==
LOC: LABWHC1 08:57
PROVIDERS: ATTEND Internal Medicine Interventional Cardiology
DX: E78.2 Mixed hyperlipidemia (principal)
CPT/HCPCS: 36415; 80061; 84450; 84460

== ENCOUNTER → 2022-03-24 | Outpatient (CLI) | payer MEDICARE ==
[2022-03-24 16:25] LABS: ALT 29 U/L (8-44); AST 30 U/L (13-35); African American GFR (CKD) 51.9 (60.0-200.0); Albumin 4.3 g/dL (3.8-4.9); Albumin/Globulin Ratio 1.43 (1.60-3.17); Alkaline Phosphatase 66 U/L (41-126); BUN/Creat Ratio 13.67 Ratio (12.00-20.00); Blood Urea Nitrogen 16.4 mg/dL (9.0-27.0); Calcium 9.9 mg/dL (8.7-10.3); Carbon Dioxide 28.2 mmol/L (20.0-27.5); Chloride 100 mmol/L (96-109); Chol/HDL Ratio 3.79 Ratio; Creatine Kinase 174 U/L (26-186); Glucose 89 mg/dL (70-110); LDL Cholesterol,Calculated 127.9 mg/dL (0.0-131.0); Non-African American GFR(CKD) 44.8 (60.0-200.0); Potassium 4.4 mmol/L (3.5-5.5); Sodium 139 mmol/L (135-145); Total Protein 7.3 g/dL (6.2-8.2)
== END | disposition home or self-care (01) ==
LOC: LABWHC1 08:15
PROVIDERS: ATTEND Internal Medicine
DX: E78.5 Hyperlipidemia, unspecified (principal)
CPT/HCPCS: 36415; 80053; 80061; 82550

== ENCOUNTER 2022-10-20 14:17 | Emergency (ER) | payer MEDICARE ==
[2022-10-20 14:42] VITALS: RESP 18
--- NOTE | 2022-10-20 16:52 | XR ---
EXAMINATION TYPE: XR chest 2V DATE OF EXAM: 10/20/2022 4:40 PM COMPARISON: Chest radiographs from 07/09/2017 TECHNIQUE: XR chest 2V Frontal and lateral views of the chest. CLINICAL INDICATION:Female, 71 years old with history of cough; FINDINGS: Lungs/Pleura: There is no evidence of pleural effusion, focal consolidation, or pneumothorax. Pulmonary vascularity: Unremarkable. Heart/mediastinum: Cardiomediastinal silhouette is unremarkable. Musculoskeletal: No acute osseous pathology. IMPRESSION: No acute cardiopulmonary disease/process.
[2022-10-20 17:01] LABS: ALT 22 U/L (4-34); African American GFR (CKD) 74 (>60 ml/min/1.73 sqM); Albumin 4.2 g/dL (3.5-5.0); Anion Gap 12 mmol/L; Blood Urea Nitrogen 14 mg/dL (7-17); Calcium 9.4 mg/dL (8.4-10.2); Carbon Dioxide 24 mmol/L (22-30); Chloride 98 mmol/L (98-107); Glucose 91 mg/dL (74-99); Non-African American GFR(CKD) 64 (>60 ml/min/1.73 sqM); Sodium 134 mmol/L (137-145); Total Bilirubin 0.8 mg/dL (0.2-1.3); Total Protein 7.5 g/dL (6.3-8.2)
[2022-10-20 17:32] LABS: AST 32 U/L (14-36); Alkaline Phosphatase 72 U/L (38-126); Potassium 4.4 mmol/L (3.5-5.1)
--- NOTE | 2022-10-20 17:55 | ED ---
General Adult HPI - General Chief complaint: ENT Stated complaint: headache sweats Time Seen by Provider: 10/20/22 15:16 Source: patient, RN notes reviewed Mode of arrival: ambulatory Limitations: no limitations - History of Present Illness Initial comments: 71-year-old female with no significant past medical history presents to the emergency department with a chief complaint of headache and generalized body aches. Patient is complaining of accompanying symptoms of fever, congestion, sore throat, cough. She is reporting a productive cough with green sputum production. She reports she tested positive for Covid approximately 1 month ago. She reports she felt better for 5 days however she is reporting worsening symptoms. She denies recent sick contacts. She did not receive her Covid or influenza vaccinations. She denies any history of asthma or COPD. Denies chest pain, shortness of breath, dyspnea, nausea, vomiting, abdominal pain. - Related Data Home Medications Medication Instructions Recorded Confirmed Aspirin EC [Ecotrin Low Dose] 81 mg PO DAILY 01/27/17 12/07/17 Metoprolol Tartrate [Lopressor] 12.5 mg PO BID 07/09/17 12/07/17 Rosuvastatin [Crestor] 10 mg PO HS 07/09/17 12/07/17 Previous Rx's Medication Instructions Recorded Clopidogrel [Plavix] 75 mg PO DAILY #30 tab 01/29/17 Nitroglycerin Sl Tabs [Nitrostat] 0.4 mg SUBLINGUAL Q5M PRN #25 tab 01/29/17 Azithromycin [Zithromax Z Pack] 250 mg PO DIRECTED #6 tab 10/20/22 predniSONE 50 mg PO DAILY #5 tab 10/20/22 Allergies Allergy/AdvReac Type Severity Reaction Status Date / Time amoxicillin [From Augmentin] Allergy Severe Anaphylaxis Verified 12/20/19 12:53 benzocaine Allergy Severe Anaphylaxis Verified 10/20/22 14:42 cephalexin [From Keflex] Allergy Severe Anaphylaxis Verified 10/20/22 14:42 clavulanic acid Allergy Severe Anaphylaxis Verified 10/20/22 14:42 [From Augmentin] Penicillins Allergy Severe Anaphylaxis Verified 10/20/22 14:42 procaine [From Novocain] Allergy Severe Anaphylaxis Verified 10/20/22 14:42 neomycin AdvReac Severe Anaphylaxis Verified 10/20/22 14:42 amlodipine AdvReac KIDNEY Verified 10/20/22 14:42 FAILURE cetirizine [From Zyrtec] AdvReac URINARY Verified 10/20/22 14:42 RETENTION hydromorphone [From Dilaudid] AdvReac GI UPSET Verified 10/20/22 14:42 Iodinated Contrast Media AdvReac GI UPSET Verified 10/20/22 14:42 [Iodinated Contrast- Oral and IV Dye] NSAIDS (Non-Steroidal AdvReac GI UPSET Verified 12/20/19 12:53 Anti-Inflamma Kxdwtfy-LCD-LlP Reductase AdvReac EXTREME Verified 12/20/19 12:53 Inhibitor JOINT PAIN [Aojmufv-Rit-Rdt Reductase Inhibitor] verapamil AdvReac KIDNEY Verified 12/20/19 12:53 FAILURE Review of Systems ROS Statement: Those systems with pertinent positive or pertinent negative responses have been documented in the HPI. ROS Other: All systems not noted in ROS Statement are negative. Past Medical History Past Medical History: Hyperlipidemia, Hypertension, Myocardial Infarction (MA) Additional Past Medical History / Comment(s): MA in January 2017 Last Myocardial Infarction Date:: January 2017 History of Any Multi-Drug Resistant Organisms: None Reported Past Surgical History: Appendectomy, Heart Catheterization With Stent, Hysterectomy Past Anesthesia/Blood Transfusion Reactions: Previous Problems w/ Anesthesia Date of Last Stent Placement:: 01/27/17 Past Psychological History: Depression Smoking Status: Never smoker Past Alcohol Use History: None Reported Past Drug Use History: None Reported - Past Family History Father Family Medical History: Myocardial Infarction (MA) Mother Family Medical History: CVA/TIA General Exam - General Exam Comments Initial Comments: General: Alert, in no acute distress Head: atraumatic normocephalic. Eyes PERRL, EOMI intact, mucous membranes moist Respiratory: Lungs clear to auscultation bilaterally Cardiovascular: Heart rate regular rate and rhythm Abdominal: Soft without guarding or rebound Extremities: Normal inspection with full range of motion and normal capillary refill Neuroogic: alert and oriented 3, CN II-XII intact, able to ambulate with steady gait Skin: warm dry and intact with normal color Limitations: no limitations Course Vital Signs 10/20/22 10/20/22 14:37 18:59 Temperature 97.9 F 98.2 F Pulse Rate 69 67 Respiratory 18 18 Rate Blood Pressure 125/86 125/84 O2 Sat by Pulse 96 96 Oximetry Medical Decision Making - Medical Decision Making Was pt. sent in by a medical professional or institution ([facility]ES[facility] Best, BEAUTY THERAPIST, urgent care, hospital, or intermediate...) When possible be specific @ -[No] Did you speak to anyone other than the patient for history (EMS, parent, family, police, friend...)? What history was obtained from this source @ -[No] Did you review nursing and triage notes (agree or disagree)? Why? @ -[I reviewed and agree with nursing and triage notes] Were old charts reviewed (outside hosp., previous admission, EMS record, old EKG, old radiological studies, urgent care reports/EKG's, intermediate records)? Report findings @ -[No old charts were reviewed] Differential Diagnosis (chest pain, altered mental status, abdominal pain women, abdominal pain men, vaginal bleeding, weakness, fever, dyspnea, syncope, headache, dizziness, GI bleed, back pain, seizure, CVA, palpatations, mental health, musculoskeletal)? @ -[not applicable] EKG interpreted by me (3pts min.). @ -[As above] X-rays interpreted by me (1pt min.). @ -60 negative for any evidence of consolidation or infiltrates. CT interpreted by me (1pt min.). @ -[None done] U/S interpreted by me (1pt. min.). @ -[None done] What testing was considered but not performed or refused? (CT, X-rays, U/S, labs)? Why? @ -[None] What meds were considered but not given or refused? Why? @ -[None] Did you discuss the management of the patient with other professionals (professionals i.e. TANESHA Best, BEAUTY THERAPIST, lab, RT, psych nurse, social media content specialist, crown ironer, teacher, ski patrol officer, case management rn)? Give summary @ -[No] Was smoking cessation discussed for >3mins.? @ -[No] Was critical care preformed (if so, how long)? @ -[No] Were there social determinants of health that impacted care today? How? (Homelessness, low income, unemployed, alcoholism, drug addiction, transportation, low edu. Level, literacy, decrease access to med. care, fci, rehab)? @ -[No] Was there de-escalation of care discussed even if they declined (Discuss DNR or withdrawal of care, Hospice)? DNR status @ -[No] What co-morbidities impacted this encounter? (DM, HTN, Smoking, COPD, CAD, Cancer, CVA, ARF, Chemo, Hep., AIDS, mental health diagnosis, sleep apnea, morbid obesity)? @ -[None] Was patient admitted / discharged? Hospital course, mention meds given and route, prescriptions, significant lab abnormalities, going to OR and other pertinent info. @ -Discharged. This is a 71-year-old female who presents to the emergency department with cough.. Patient had a thorough history and physical exam performed while in the ED. Physical exam is essentially unremarkable heart rate regular rate and rhythm, lungs clear to auscultation bilaterally, abdomen soft and non-tender. Patient had lab work and imaging performed which were essentially unremarkable.. I discussed results in detail with the patient who verbalized understanding and all questions were addressed. She was given tylenol and 1 L of IV fluids with symptomatic relief. Return precautions were discussed at length. She was given a prescription for azithromycin and prednisone. The patient was discharged in stable condition. Discussed with CAIN Aponte who agrees with plan of care Undiagnosed new problem with uncertain prognosis? @ -[No] Drug Therapy requiring intensive monitoring for toxicity (Heparin, Nitro, Insulin, Cardizem)? @ -[No] Were any procedures done? @ -[No] Diagnosis/symptom? @ -cough Acute, or Chronic, or Acute on Chronic? @ -Acute Uncomplicated (without systemic symptoms) or Complicated (systemic symptoms)? @ -Uncomplicated Side effects of treatment? @ -[No] Exacerbation, Progression, or Severe Exacerbation? @ -[No] Poses a threat to life or bodily function? How? (Chest pain, [place], MA, pneumonia, PE, COPD, DKA, ARF, appy, cholecystitis, CVA, Diverticulitis, Homicidal, Suicidal, threat to staff... and all critical care pts) @ -Low likelihood - Lab Data Result diagrams: 10/20/22 17:59 10/20/22 15:40 Lab Results 10/20/22 10/20/22 10/20/22 Range/Units 15:40 15:40 15:40 WBC (3.8-10.6) k/uL RBC (3.80-5.40) m/uL Hgb (11.4-16.0) gm/dL Hct (34.0-46.0) % MCV (80.0-100.0) fL MCH (25.0-35.0) pg MCHC (31.0-37.0) g/dL RDW (11.5-15.5) % Plt Count (150-450) k/uL MPV Neutrophils % % Lymphocytes % % Monocytes % % Eosinophils % % Basophils % % Neutrophils # (1.3-7.7) k/uL Lymphocytes # (1.0-4.8) k/uL Monocytes # (0-1.0) k/uL Eosinophils # (0-0.7) k/uL Basophils # (0-0.2) k/uL Sodium 134 L (137-145) mmol/L Potassium 4.4 (3.5-5.1) mmol/L Chloride 98 (98-107) mmol/L Carbon Dioxide 24 (22-30) mmol/L Anion Gap 12 mmol/L BUN 14 (7-17) mg/dL Creatinine 0.90 (0.52-1.04) mg/dL Est GFR (CKD-EPI)AfAm 74 (>60 ml/min/1.73 sqM) Est GFR (CKD-EPI)NonAf 64 (>60 ml/min/1.73 sqM) Glucose 91 (74-99) mg/dL Calcium 9.4 (8.4-10.2) mg/dL Total Bilirubin 0.8 (0.2-1.3) mg/dL AST 32 (14-36) U/L ALT 22 (4-34) U/L Alkaline Phosphatase 72 (38-126) U/L Total Protein 7.5 (6.3-8.2) g/dL Albumin 4.2 (3.5-5.0) g/dL Influenza Type A (PCR) Not Detected (Not Detectd) Influenza Type B (PCR) Not Detected (Not Detectd) RSV (PCR) Not Detected (Not Detectd) SARS-CoV-2 (PCR) Not Detected (Not Detectd) Group A Strep (PCR) NOT DETECTED (Not Detectd) 10/20/22 Range/Units 17:59 WBC 9.3 (3.8-10.6) k/uL RBC 4.41 (3.80-5.40) m/uL Hgb 13.9 (11.4-16.0) gm/dL Hct 42.0 (34.0-46.0) % MCV 95.1 (80.0-100.0) fL MCH 31.4 (25.0-35.0) pg MCHC 33.0 (31.0-37.0) g/dL RDW 12.6 (11.5-15.5) % Plt Count 338 (150-450) k/uL MPV 7.6 Neutrophils % 75 % Lymphocytes % 15 % Monocytes % 6 % Eosinophils % 2 % Basophils % 0 % Neutrophils # 7.0 (1.3-7.7) k/uL Lymphocytes # 1.4 (1.0-4.8) k/uL Monocytes # 0.6 (0-1.0) k/uL Eosinophils # 0.2 (0-0.7) k/uL Basophils # 0.0 (0-0.2) k/uL Sodium (137-145) mmol/L Potassium (3.5-5.1) mmol/L Chloride (98-107) mmol/L Carbon Dioxide (22-30) mmol/L Anion Gap mmol/L BUN (7-17) mg/dL Creatinine (0.52-1.04) mg/dL Est GFR (CKD-EPI)AfAm (>60 ml/min/1.73 sqM) Est GFR (CKD-EPI)NonAf (>60 ml/min/1.73 sqM) Glucose (74-99) mg/dL Calcium (8.4-10.2) mg/dL Total Bilirubin (0.2-1.3) mg/dL AST (14-36) U/L ALT (4-34) U/L Alkaline Phosphatase (38-126) U/L Total Protein (6.3-8.2) g/dL Albumin (3.5-5.0) g/dL Influenza Type A (PCR) (Not Detectd) Influenza Type B (PCR) (Not Detectd) RSV (PCR) (Not Detectd) SARS-CoV-2 (PCR) (Not Detectd) Group A Strep (PCR) (Not Detectd) Disposition Clinical Impression: Cough Disposition: HOME SELF-CARE Condition: Stable Instructions (If sedation given, give patient instructions): Upper Respiratory Infection (ED) Prescriptions: predniSONE 50 mg PO DAILY #5 tab Azithromycin [Zithromax Z Pack] 250 mg PO DIRECTED #6 tab Is patient prescribed a controlled substance at d/c from ED?: No Referrals: Chon De Anda MD [Primary Care Provider] - 1-2 days Time of Disposition: 19:10
[2022-10-20 18:32] LABS: Basophils % (A) 0 %; Eosinophils # (A) 0.2 k/uL (0-0.7); Eosinophils % (A) 2 %; HGB 13.9 gm/dL (11.4-16.0); Lymphocytes # (A) 1.4 k/uL (1.0-4.8); Lymphocytes % (A) 15 %; MCH 31.4 pg (25.0-35.0); MCV 95.1 fL (80.0-100.0); Mean Platelet Volume 7.6; Monocytes # (A) 0.6 k/uL (0-1.0); Monocytes % (A) 6 %; Neutrophils % (A) 75 %; Platelet Count 338 k/uL (150-450); RBC 4.41 m/uL (3.80-5.40); RDW 12.6 % (11.5-15.5); WBC 9.3 k/uL (3.8-10.6)
[2022-10-20 19:01] VITALS: BP 125/84; PULSE 67; TEMP 98.2
== END 2022-10-20 19:01 | disposition home or self-care (01) ==
LOC: EC 14:17
DX: R05.9 Cough, unspecified (principal); E78.5 Hyperlipidemia, unspecified; I10 Essential (primary) hypertension; I25.2 Old myocardial infarction; F32.A Depression, unspecified; Z88.0 Allergy status to penicillin; Z88.1 Allergy status to other antibiotic agents; Z88.5 Allergy status to narcotic agent; Z88.6 Allergy status to analgesic agent; Z88.8 Allergy status to other drugs, medicaments and biological substances; Z79.82 Long term (current) use of aspirin; Z79.899 Other long term (current) drug therapy; Z20.822 Contact with and (suspected) exposure to COVID-19
CPT/HCPCS: 36415; 71046; 80053; 85025; 87636; 87651; 99284

== ENCOUNTER 2023-01-12 13:53 | Emergency (ER) | payer MEDICARE ==
[2023-01-12 14:04] VITALS: RESP 18
[2023-01-12] MEDS ORDERED: SODIUM CHLORIDE 0.9% 1,000 ML IV STA (14:15)
[2023-01-12] MEDS ORDERED: METOCLOPRAMIDE 5 MG/ML 2 ML VIAL IVP STA (14:16)
[2023-01-12] MEDS ORDERED: MECLIZINE 12.5 MG TAB PO STA (14:16)
--- NOTE | 2023-01-12 14:21 | ED ---
Headache HPI - General Chief Complaint: Headache Stated Complaint: Headache Time Seen by Provider: 01/12/23 14:06 Source: patient, RN notes reviewed Mode of arrival: EMS Limitations: no limitations - History of Present Illness Initial Comments: This is a 72-year-old female who presents to the emergency department for a headache and dizziness. 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 States that this is in the back of her head, the top of her head, and the sides. Unsure if this is the worst headache of her life. However, states that she does not ever get headaches like this. Denies any visual changes. States that her headache feels like a pressure sensation. Reports minor associated nausea. She has also started to feel dizzy. States that she may describe this as a room spinning sensation. Unsure if it is positional. Denies any fevers, chills, sore throat, cough, dyspnea, chest pain, palpitations, abdominal pain, vomiting, diarrhea, or back pain. MD Complaint: headache Onset Description: sudden - Related Data Home Medications Medication Instructions Recorded Confirmed Aspirin EC [Ecotrin Low Dose] 81 mg PO DAILY 01/27/17 12/07/17 Metoprolol Tartrate [Lopressor] 12.5 mg PO BID 07/09/17 12/07/17 Rosuvastatin [Crestor] 10 mg PO HS 07/09/17 12/07/17 Previous Rx's Medication Instructions Recorded Clopidogrel [Plavix] 75 mg PO DAILY #30 tab 01/29/17 Nitroglycerin Sl Tabs [Nitrostat] 0.4 mg SUBLINGUAL Q5M PRN #25 tab 01/29/17 Azithromycin [Zithromax Z Pack] 250 mg PO DIRECTED #6 tab 10/20/22 predniSONE 50 mg PO DAILY #5 tab 10/20/22 Meclizine [Antivert] 25 mg PO TID PRN #20 tab 01/12/23 Allergies Allergy/AdvReac Type Severity Reaction Status Date / Time amoxicillin [From Augmentin] Allergy Severe Anaphylaxis Verified 12/20/19 12:53 benzocaine Allergy Severe Anaphylaxis Verified 01/12/23 14:05 cephalexin [From Keflex] Allergy Severe Anaphylaxis Verified 01/12/23 14:05 clavulanic acid Allergy Severe Anaphylaxis Verified 01/12/23 14:05 [From Augmentin] Penicillins Allergy Severe Anaphylaxis Verified 01/12/23 14:05 procaine [From Novocain] Allergy Severe Anaphylaxis Verified 01/12/23 14:05 neomycin AdvReac Severe Anaphylaxis Verified 01/12/23 14:05 amlodipine AdvReac KIDNEY Verified 01/12/23 14:05 FAILURE cetirizine [From Zyrtec] AdvReac URINARY Verified 01/12/23 14:05 RETENTION hydromorphone [From Dilaudid] AdvReac GI UPSET Verified 01/12/23 14:05 Iodinated Contrast Media AdvReac GI UPSET Verified 01/12/23 14:05 [Iodinated Contrast- Oral and IV Dye] NSAIDS (Non-Steroidal AdvReac GI UPSET Verified 12/20/19 12:53 Anti-Inflamma Xqafxpi-BOK-EmK Reductase AdvReac EXTREME Verified 12/20/19 12:53 Inhibitor JOINT PAIN [Wdojgjd-Wqt-Odn Reductase Inhibitor] verapamil AdvReac KIDNEY Verified 12/20/19 12:53 FAILURE Review of Systems ROS Statement: Those systems with pertinent positive or pertinent negative responses have been documented in the HPI. ROS Other: All systems not noted in ROS Statement are negative. Past Medical History Past Medical History: Hyperlipidemia, Hypertension, Myocardial Infarction (PA) Additional Past Medical History / Comment(s): PA in January 2017 Last Myocardial Infarction Date:: January 2017 History of Any Multi-Drug Resistant Organisms: None Reported Past Surgical History: Appendectomy, Heart Catheterization With Stent, Hysterectomy Past Anesthesia/Blood Transfusion Reactions: Previous Problems w/ Anesthesia Date of Last Stent Placement:: 01/27/17 Past Psychological History: Depression Smoking Status: Never smoker Past Alcohol Use History: None Reported Past Drug Use History: None Reported - Past Family History Father Family Medical History: Myocardial Infarction (PA) Mother Family Medical History: CVA/TIA General Exam Limitations: no limitations General appearance: alert, in no apparent distress Head exam: Present: atraumatic, normocephalic, normal inspection Eye exam: Present: normal appearance, PERRL, EOMI. Absent: scleral icterus, conjunctival injection, periorbital swelling Respiratory exam: Present: normal lung sounds bilaterally. Absent: respiratory distress, wheezes, rales, rhonchi, stridor Cardiovascular Exam: Present: regular rate, normal rhythm, normal heart sounds. Absent: systolic murmur, diastolic murmur, rubs, gallop, clicks Neurological exam: Present: alert, oriented X3, CN II-XII intact Psychiatric exam: Present: normal affect, normal mood Skin exam: Present: warm, dry, intact, normal color. Absent: rash Course Vital Signs 01/12/23 01/12/23 01/12/23 13:57 15:36 16:00 Temperature 97.3 F L Pulse Rate 60 70 56 L Respiratory 18 18 18 Rate Blood Pressure 181/100 147/79 147/79 O2 Sat by Pulse 100 97 98 Oximetry 01/12/23 01/12/23 17:00 17:54 Temperature 97.2 F L Pulse Rate 55 L 58 L Respiratory 18 18 Rate Blood Pressure 118/76 133/65 O2 Sat by Pulse 98 99 Oximetry Medical Decision Making - Medical Decision Making This is a 72-year-old female who presents to the emergency department for a headache and dizziness. Was pt. sent in by a medical professional or institution? @ -No Did you speak to anyone other than the patient for history? @ -No Did you review nursing and triage notes? @ -Yes, and I agree, it is accurate with regards to the patient's symptoms. Were old charts reviewed? @ -No Differential Diagnosis? @ -Differential Headache: Migraine, tension, cluster, carbon monoxide, central venous thrombosis, pension karma temporal arteritis, acute closure glaucoma, intercranial hemorrhage, mastoiditis, sinusitis, head injury, this is not meant to be an all-inclusive list. EKG interpreted by me (3pts min.)? @ -EKG interpreted by me demonstrating the following: Sinus bradycardia. Ventricular rate 54 beats per minute, IN interval 197 ms, QRS duration 97 ms, QTC 401 ms. X-rays interpreted by me (1pt min.)? @ -Chest x-ray obtained, my interpretation identifies no localized consolidations or infiltrates. CT interpreted by me (1pt min.)? @ -Computed tomography scan of the brain obtained. My interpretation identifies no evidence of an acute intracranial hemorrhage or mass effect. U/S interpreted by me (1pt. min.)? @ -Not obtained What testing was considered but not performed? (CT, X-rays, U/S, labs)? Why? @ -None What meds were considered but not given? Why? @ -None Did you discuss the management of the patient with other professionals? @ -No Did you reconcile home meds? @ -No Was smoking cessation discussed for >3mins.? @ -No Was critical care preformed (if so, how long)? @ -No Were there social determinants of health that impacted care today? How? (Homelessness, low income, unemployed, alcoholism, drug addiction, transportation, low edu. Level, literacy, decrease access to med. care, alf, r ehab)? @ -No Was there de-escalation of care discussed even if they declined? (Discuss DNR or withdrawal of care, Hospice)? @ -No What co-morbidities impacted this encounter? (DM, HTN, Smoking, COPD, CAD, Cancer, CVA, Hep., AIDS, mental health diagnosis, sleep apnea, morbid obesity)? @ -HLD, HTN, CAD Was patient admitted / discharged? @ -Discharged. Lab work obtained revealing mild hypokalemia, and was otherwise nonactionable. Chest x-ray reveals no acute process. Computed tomography scan of the brain obtained as well, also revealing no acute findings. Patient given IV fluids, K-dur, meclizine, and Reglan, with significant relief in the dizziness. The headache was well controlled with Toradol, decadron, and Tylenol. The cause of her symptoms is not entirely clear. It may be related to vertigo or another etiology. Rx for meclizine provided with dosing instructions reviewed. She is advised to move around slowly and have close follow-up with her PCP. Undiagnosed new problem with uncertain prognosis? @ -None Drug Therapy requiring intensive monitoring for toxicity (Heparin, Nitro, Insulin, Cardizem)? @ -None Were any procedures done? @ -None Diagnosis/symptom? @ -Dizziness, headache Acute, or Chronic, or Acute on Chronic? @ -Acute Uncomplicated (without systemic symptoms) or Complicated (systemic symptoms)? @ -Uncomplicated Side effects of treatment? @ -None Exacerbation, Progression, or Severe Exacerbation] @ -Not applicable Poses a threat to life or bodily function? @ -No Return precautions reviewed in depth, the patient is instructed to return to the emergency department with any new, worsening, or concerning symptoms. Patient verbalized understanding. This case was discussed in detail with the attending ED physician, Dr. Shivam andrade. Presentation, findings, and treatment plan discussed in detail as well. - Lab Data Result diagrams: 01/12/23 14:22 01/12/23 14:22 Lab Results 01/12/23 01/12/23 01/12/23 Range/Units 14:22 14:22 14:22 WBC 7.6 (3.8-10.6) k/uL RBC 4.05 (3.80-5.40) m/uL Hgb 12.6 (11.4-16.0) gm/dL Hct 38.1 (34.0-46.0) % MCV 94.1 (80.0-100.0) fL MCH 31.1 (25.0-35.0) pg MCHC 33.1 (31.0-37.0) g/dL RDW 13.3 (11.5-15.5) % Plt Count 307 (150-450) k/uL MPV 7.8 Neutrophils % 75 % Lymphocytes % 15 % Monocytes % 6 % Eosinophils % 3 % Basophils % 0 % Neutrophils # 5.7 (1.3-7.7) k/uL Lymphocytes # 1.1 (1.0-4.8) k/uL Monocytes # 0.4 (0-1.0) k/uL Eosinophils # 0.2 (0-0.7) k/uL Basophils # 0.0 (0-0.2) k/uL PT 10.5 (9.0-12.0) sec INR 1.0 (<1.2) Sodium 133 L (137-145) mmol/L Potassium 3.4 L (3.5-5.1) mmol/L Chloride 97 L (98-107) mmol/L Carbon Dioxide 26 (22-30) mmol/L Anion Gap 10 mmol/L BUN 17 (7-17) mg/dL Creatinine 0.83 (0.52-1.04) mg/dL Est GFR (CKD-EPI)AfAm 81 (>60 ml/min/1.73 sqM) Est GFR (CKD-EPI)NonAf 70 (>60 ml/min/1.73 sqM) Glucose 101 H (74-99) mg/dL Plasma Lactic Acid Juan (0.7-2.0) mmol/L Calcium 10.0 (8.4-10.2) mg/dL Total Bilirubin 0.7 (0.2-1.3) mg/dL AST 40 H (14-36) U/L ALT 35 H (4-34) U/L Alkaline Phosphatase 71 (38-126) U/L Troponin I (0.000-0.034) ng/mL Total Protein 7.2 (6.3-8.2) g/dL Albumin 4.0 (3.5-5.0) g/dL Coronavirus (PCR) (Not Detectd) Influenza Type A (PCR) (Not Detectd) Influenza Type B (PCR) (Not Detectd) RSV (PCR) (Not Detectd) SARS-CoV-2 (PCR) (Not Detectd) 01/12/23 01/12/23 01/12/23 Range/Units 14:22 14:22 15:00 WBC (3.8-10.6) k/uL RBC (3.80-5.40) m/uL Hgb (11.4-16.0) gm/dL Hct (34.0-46.0) % MCV (80.0-100.0) fL MCH (25.0-35.0) pg MCHC (31.0-37.0) g/dL RDW (11.5-15.5) % Plt Count (150-450) k/uL MPV Neutrophils % % Lymphocytes % % Monocytes % % Eosinophils % % Basophils % % Neutrophils # (1.3-7.7) k/uL Lymphocytes # (1.0-4.8) k/uL Monocytes # (0-1.0) k/uL Eosinophils # (0-0.7) k/uL Basophils # (0-0.2) k/uL PT (9.0-12.0) sec INR (<1.2) Sodium (137-145) mmol/L Potassium (3.5-5.1) mmol/L Chloride (98-107) mmol/L Carbon Dioxide (22-30) mmol/L Anion Gap mmol/L BUN (7-17) mg/dL Creatinine (0.52-1.04) mg/dL Est GFR (CKD-EPI)AfAm (>60 ml/min/1.73 sqM) Est GFR (CKD-EPI)NonAf (>60 ml/min/1.73 sqM) Glucose (74-99) mg/dL Plasma Lactic Acid Juan 1.4 (0.7-2.0) mmol/L Calcium (8.4-10.2) mg/dL Total Bilirubin (0.2-1.3) mg/dL AST (14-36) U/L ALT (4-34) U/L Alkaline Phosphatase (38-126) U/L Troponin I <0.012 (0.000-0.034) ng/mL Total Protein (6.3-8.2) g/dL Albumin (3.5-5.0) g/dL Coronavirus (PCR) (Not Detectd) Influenza Type A (PCR) Not Detected (Not Detectd) Influenza Type B (PCR) Not Detected (Not Detectd) RSV (PCR) Not Detected (Not Detectd) SARS-CoV-2 (PCR) Not Detected (Not Detectd) 01/12/23 Range/Units 15:06 WBC (3.8-10.6) k/uL RBC (3.80-5.40) m/uL Hgb (11.4-16.0) gm/dL Hct (34.0-46.0) % MCV (80.0-100.0) fL MCH (25.0-35.0) pg MCHC (31.0-37.0) g/dL RDW (11.5-15.5) % Plt Count (150-450) k/uL MPV Neutrophils % % Lymphocytes % % Monocytes % % Eosinophils % % Basophils % % Neutrophils # (1.3-7.7) k/uL Lymphocytes # (1.0-4.8) k/uL Monocytes # (0-1.0) k/uL Eosinophils # (0-0.7) k/uL Basophils # (0-0.2) k/uL PT (9.0-12.0) sec INR (<1.2) Sodium (137-145) mmol/L Potassium (3.5-5.1) mmol/L Chloride (98-107) mmol/L Carbon Dioxide (22-30) mmol/L Anion Gap mmol/L BUN (7-17) mg/dL Creatinine (0.52-1.04) mg/dL Est GFR (CKD-EPI)AfAm (>60 ml/min/1.73 sqM) Est GFR (CKD-EPI)NonAf (>60 ml/min/1.73 sqM) Glucose (74-99) mg/dL Plasma Lactic Acid Juan (0.7-2.0) mmol/L Calcium (8.4-10.2) mg/dL Total Bilirubin (0.2-1.3) mg/dL AST (14-36) U/L ALT (4-34) U/L Alkaline Phosphatase (38-126) U/L Troponin I (0.000-0.034) ng/mL Total Protein (6.3-8.2) g/dL Albumin (3.5-5.0) g/dL Coronavirus (PCR) Not Detected (Not Detectd) Influenza Type A (PCR) (Not Detectd) Influenza Type B (PCR) (Not Detectd) RSV (PCR) (Not Detectd) SARS-CoV-2 (PCR) (Not Detectd) - Radiology Data Radiology results: report reviewed, image reviewed Disposition Clinical Impression: Dizziness, Headache, Hypokalemia Disposition: HOME SELF-CARE Instructions (If sedation given, give patient instructions): Acute Headache (ED), Dizziness (ED) Additional Instructions: Return to the emergency department with any new, worsening, or concerning symptoms. You can try taking the meclizine 3-4 times daily for management of the dizziness. Make sure that you remain well-hydrated and move around slowly to reduce the risk of future episodes. Follow up with your primary care provider in 1-2 days. Prescriptions: Meclizine [Antivert] 25 mg PO TID PRN #20 tab PRN Reason: Vertigo Is patient prescribed a controlled substance at d/c from ED?: No Referrals: Kulwant Bauman MD [Primary Care Provider] - 1-2 days
[2023-01-12 14:36] LABS: Basophils % (A) 0 %; Eosinophils # (A) 0.2 k/uL (0-0.7); Eosinophils % (A) 3 %; HCT 38.1 % (34.0-46.0); HGB 12.6 gm/dL (11.4-16.0); Lymphocytes # (A) 1.1 k/uL (1.0-4.8); Lymphocytes % (A) 15 %; MCH 31.1 pg (25.0-35.0); MCHC 33.1 g/dL (31.0-37.0); MCV 94.1 fL (80.0-100.0); Mean Platelet Volume 7.8; Monocytes # (A) 0.4 k/uL (0-1.0); Monocytes % (A) 6 %; Neutrophils # (A) 5.7 k/uL (1.3-7.7); Neutrophils % (A) 75 %; Platelet Count 307 k/uL (150-450); RBC 4.05 m/uL (3.80-5.40); RDW 13.3 % (11.5-15.5); WBC 7.6 k/uL (3.8-10.6)
[2023-01-12 14:43] LABS: Prothrombin Time 10.5 sec (9.0-12.0)
[2023-01-12 14:55] LABS: ALT 35 U/L (4-34); AST 40 U/L (14-36); African American GFR (CKD) 81 (>60 ml/min/1.73 sqM); Alkaline Phosphatase 71 U/L (38-126); Anion Gap 10 mmol/L; Blood Urea Nitrogen 17 mg/dL (7-17); Carbon Dioxide 26 mmol/L (22-30); Chloride 97 mmol/L (98-107); Glucose 101 mg/dL (74-99); Non-African American GFR(CKD) 70 (>60 ml/min/1.73 sqM); Potassium 3.4 mmol/L (3.5-5.1); Sodium 133 mmol/L (137-145); Total Bilirubin 0.7 mg/dL (0.2-1.3); Total Protein 7.2 g/dL (6.3-8.2)
--- NOTE | 2023-01-12 14:58 | CT ---
EXAMINATION TYPE: CT brain wo con DATE OF EXAM: 01/12/2023 COMPARISON: None HISTORY: Headache and dizziness. CT DLP: 1089.[address] of the brain was performed. The ventricles, basal cisterns and sulci overlying the cerebral convexities demonstrate mild enlargem ent. There is no evidence for intracranial hemorrhage or sulcal effacement. There is decreased attenuation about the periventricular white matter and deep white matter of both c erebral hemispheres, compatible with chronic small vessel ischemia. Differential diagnosis does inclu de demyelination. No mass effects are seen.No midline shift. Osseous calvarium is intact. If symptoms persist consider MRI. IMPRESSION: 1. Age related atrophic and chronic small vessel ischemic change without acute intracranial process s een at this time.
--- NOTE | 2023-01-12 15:08 | XR ---
EXAMINATION TYPE: XR chest 2V DATE OF EXAM: 01/12/2023 3:01 PM COMPARISON: Chest radiographs from 10/20/2022 TECHNIQUE: XR chest 2V Frontal and lateral views of the chest. CLINICAL INDICATION:Female, 72 years old with history of dizziness; FINDINGS: Lungs/Pleura: There is no evidence of pleural effusion, focal consolidation, or pneumothorax. Pulmonary vascularity: Unremarkable. Heart/mediastinum: Cardiomediastinal silhouette is unremarkable. Musculoskeletal: No acute osseous pathology. IMPRESSION: No acute cardiopulmonary disease/process.
[2023-01-12] MEDS ORDERED: POTASSIUM CHLORIDE ER 10 MEQ TAB.ER.PRT PO STA (15:10)
[2023-01-12] MEDS ORDERED: KETOROLAC 15 MG/ML 1 ML VIAL IVP STA (15:33)
[2023-01-12] MEDS ORDERED: DEXAMETHASONE SOD PHOSPHATE 10 MG/ML 1 ML VIAL IVP STA (15:33)
[2023-01-12] MEDS ORDERED: ACETAMINOPHEN TAB 500 MG TAB PO STA (15:33)
[2023-01-12] MEDS ORDERED: ONDANSETRON 4 MG ODT STARTER PACK 2 TAB BTL PO STA (17:05)
[2023-01-12 17:58] VITALS: BP 133/65; PULSE 58; TEMP 97.2
== END 2023-01-12 18:09 | disposition home or self-care (01) ==
LOC: EC 13:53
DX: R42 Dizziness and giddiness (principal); R51.9 Headache, unspecified; E87.6 Hypokalemia; I10 Essential (primary) hypertension; I25.2 Old myocardial infarction; E78.5 Hyperlipidemia, unspecified; Z79.82 Long term (current) use of aspirin; Z79.899 Other long term (current) drug therapy; Z88.0 Allergy status to penicillin; Z88.5 Allergy status to narcotic agent; Z88.6 Allergy status to analgesic agent; Z88.1 Allergy status to other antibiotic agents; Z91.041 Radiographic dye allergy status; Z88.8 Allergy status to other drugs, medicaments and biological substances; Z20.822 Contact with and (suspected) exposure to COVID-19
CPT/HCPCS: 36415; 93005; 80053; 83605; 84484; 85025; 85610; 87635; 87636; 71046; 70450; 99285; 96374; 96375 ×2; 96361; J1100; J2765; J1885; S0119

== ENCOUNTER → 2023-02-26 | Outpatient (CLI) | payer MEDICARE ==
--- NOTE | 2023-02-26 13:24 | XR ---
EXAMINATION TYPE: XR Hip Complete 2 views LT, XR femur 2 views LT DATE OF EXAM: 02/26/2023 COMPARISON: NONE HISTORY: 72-year-old female M2 5.552, left hip pain FINDINGS: Left hip: There is moderate degenerative change of the left hip with superolateral loss of cartilage and joint space and marginal spurring. No acute fracture, subluxation, dislocation seen. Osteitis pubis. Left femur: Mild degenerative spurring medial and patellofemoral compartments of the knee. No knee joint effusion . No acute femoral shaft fracture seen. No periostitis or osteolysis. IMPRESSION: 1. Left hip: Moderate left hip OA. Osteitis pubis. 2. Left femur: No acute osseous abnormality seen.
[2023-02-26 16:32] LABS: Basophils # (A) 0.06 X 10*3/uL (0.00-0.10); Basophils % (A) 0.8 %; Eosinophils # (A) 0.16 X 10*3/uL (0.04-0.35); Eosinophils % (A) 2.1 %; HCT 41.7 % (37.2-46.3); HGB 13.3 d/dL (12.0-15.0); Lymphocytes # (A) 1.14 X 10*3/uL (0.90-5.00); Lymphocytes % (A) 14.7 %; MCH 30.7 pg (27.0-32.0); MCHC 31.9 d/dL (32.0-37.0); MCV 96.3 FL (80.0-97.0); Mean Platelet Volume 10.8 FL (9.5-12.2); NRBC Per 100 WBC 0 X 10*3/uL (0.00-0.01); Neutrophils # (A) 5.68 X 10*3/uL (1.80-7.70); Neutrophils % (A) 73.1 %; Platelet Count 334 X 10*3/uL (140-440); RBC 4.33 X 10*6/uL (4.10-5.20); RDW 12.7 % (11.5-14.5); WBC 7.76 X 10*3/uL (4.50-10.00)
[2023-02-26 17:16] LABS: ALT 40 U/L (8-44); AST 33 U/L (13-35); Albumin 4.3 d/dL (3.8-4.9); Albumin/Globulin Ratio 1.54 Ratio (1.60-3.17); Alkaline Phosphatase 75 U/L (41-126); Blood Urea Nitrogen 17.4 mg/dL (9.0-27.0); Carbon Dioxide 26.7 mmol/L (21.6-31.8); Chloride 99 mmol/L (96-109); Chol/HDL Ratio 3.45 Ratio; Globulin 2.8 d/dL (1.6-3.3); Glucose 92 mg/dL (70-110); LDL Cholesterol,Calculated 125.1 mg/dL (0.0-131.0); Magnesium 1.9 mg/dL (1.5-2.4); Potassium 3.8 mmol/L (3.5-5.5); Sodium 139 mmol/L (135-145); Total Bilirubin 0.5 mg/dL (0.3-1.2); Total Protein 7.1 d/dL (6.2-8.2)
== END | disposition home or self-care (01) ==
LOC: LABWHC1 09:06
PROVIDERS: ATTEND Internal Medicine
DX: I10 Essential (primary) hypertension (principal); E78.2 Mixed hyperlipidemia; E55.9 Vitamin D deficiency, unspecified; M16.12 Unilateral primary osteoarthritis, left hip
CPT/HCPCS: 36415; 73502; 80053; 80061; 82306; 83036; 83735; 84443; 85025

== ENCOUNTER 2023-07-02 13:58 | Emergency (ER) | payer MEDICARE ==
--- NOTE | 2023-07-02 14:15 | ED ---
Weakness HPI - General Source: patient, RN notes reviewed Mode of arrival: ambulatory Limitations: no limitations <Oscar Jasso - Last Filed: 07/02/23 14:12> <Osvaldo Kaur - Last Filed: 07/02/23 22:49> - General Chief complaint: Weakness Stated complaint: weakness Time Seen by Provider: 07/02/23 14:06 - History of Present Illness Initial comments: 72-year-old female presents emergency department chief complaint of weakness, joint pain, muscle pain she states this has been going on for last months she is concerned that she was started back on cholesterol medications. She states that symptoms have been worsening over the last 1 month. Patient states that she had no reported fever mild cough is nonproductive denies any focal weakness denies any localized abdominal pain. (Oscar Jasso) This 72-year-old female presents with a complaint of some weakness as well as cough, occasional shortness of breath, and diffuse myalgias. She states that symptoms have been present for approximately one month. She denies any actual fever. Her weakness is generalized in nature and he states that she has had a hard time walking from her bedroom to the kitchen to get water she can drink water. She denies any abdominal pain. There is no leg swelling. She is on cholesterol medications and wonders if she is suffering side effects of these medications. She has had elevation of her liver function studies in the past. She denies any urinary symptoms. No other complaints or modifying factors. (Osvaldo Kaur) - Related Data Home Medications Medication Instructions Recorded Confirmed Aspirin EC [Ecotrin Low Dose] 81 mg PO DAILY 01/27/17 07/02/23 Calcium 500mg 1,000 mg PO DAILY 07/02/23 07/02/23 Cholecalciferol [Vitamin D3 (25 100 mcg PO DAILY 07/02/23 07/02/23 Mcg = 1000 Iu)] Multivitamin [Multivitamins Adult 2 tab PO DAILY 07/02/23 07/02/23 Gummies] Nitroglycerin Sl Tabs [Nitrostat] 0.4 mg SL Q5M PRN 07/02/23 07/02/23 PARoxetine [Paxil] 10 mg PO DAILY 07/02/23 07/02/23 Potassium Chloride 10 meq PO DAILY 07/02/23 07/02/23 Triamterene-Hctz 37.5-25Mg 1 cap PO DAILY 07/02/23 07/02/23 [Dyazide 37.5-25 Capsule] Ubidecarenone [Coenzyme Q10] 200 mg PO DAILY 07/02/23 07/02/23 Previous Rx's Medication Instructions Recorded Levofloxacin [Levaquin] 500 mg PO DAILY 7 Days #1 tab 07/02/23 Ondansetron Odt [Zofran Odt] 8 mg PO Q8HR PRN #15 tab 07/02/23 Allergies Allergy/AdvReac Type Severity Reaction Status Date / Time amoxicillin [From Augmentin] Allergy Severe Anaphylaxis Verified 07/02/23 19:36 benzocaine Allergy Severe Anaphylaxis Verified 07/02/23 19:36 cephalexin [From Keflex] Allergy Severe Anaphylaxis Verified 07/02/23 19:36 clavulanic acid Allergy Severe Anaphylaxis Verified 07/02/23 19:36 [From Augmentin] neomycin Allergy Severe Anaphylaxis Verified 07/02/23 19:36 Penicillins Allergy Severe Anaphylaxis Verified 07/02/23 19:36 procaine [From Novocain] Allergy Severe Anaphylaxis Verified 07/02/23 19:36 amlodipine AdvReac KIDNEY Verified 07/02/23 19:36 FAILURE cetirizine [From Zyrtec] AdvReac URINARY Verified 07/02/23 19:36 RETENTION hydromorphone [From Dilaudid] AdvReac GI UPSET Verified 07/02/23 19:36 Iodinated Contrast Media AdvReac GI UPSET Verified 07/02/23 19:36 [Iodinated Contrast- Oral and IV Dye] NSAIDS (Non-Steroidal AdvReac GI UPSET Verified 07/02/23 19:36 Anti-Inflamma Ftwdobr-CBB-VbE Reductase AdvReac EXTREME Verified 07/02/23 19:36 Inhibitor JOINT PAIN [Oxjyrzk-Aul-Ngy Reductase Inhibitor] verapamil AdvReac KIDNEY Verified 07/02/23 19:36 FAILURE Review of Systems ROS Other: All systems not noted in ROS Statement are negative. <Oscar Jasso - Last Filed: 07/02/23 14:12> ROS Other: All systems not noted in ROS Statement are negative. <Osvaldo Kaur - Last Filed: 07/02/23 22:49> ROS Statement: Those systems with pertinent positive or pertinent negative responses have been documented in the HPI. Past Medical History Past Medical History: Hyperlipidemia, Hypertension, Myocardial Infarction (CT) Additional Past Medical History / Comment(s): CT in January 2017 Last Myocardial Infarction Date:: January 2017 History of Any Multi-Drug Resistant Organisms: None Reported Past Surgical History: Appendectomy, Heart Catheterization With Stent, Hysterectomy Past Anesthesia/Blood Transfusion Reactions: Previous Problems w/ Anesthesia Date of Last Stent Placement:: 01/27/17 Past Psychological History: Depression Smoking Status: Never smoker Past Alcohol Use History: None Reported Past Drug Use History: None Reported - Past Family History Father Family Medical History: Myocardial Infarction (CT) Mother Family Medical History: CVA/TIA <Oscar Jasso - Last Filed: 07/02/23 14:12> General Exam Limitations: no limitations <Oscar Jasso - Last Filed: 07/02/23 14:12> <Osvaldo Kaur - Last Filed: 07/02/23 22:49> - General Exam Comments Initial Comments: Visual Physical Exam Vital signs reviewed General: Well-appearing, nontoxic, no acute distress. Head: Normocephalic, atraumatic Eyes: PERRLA, EOMI ENT: Airway patent Chest: Nonlabored breathing Skin: No visual rash, normal skin tone Neuro: Alert and oriented 3 Musculoskeletal: No gross abnormalities (Oscar Jasso) GENERAL: The patient is well nourished and well hydrated. VITAL SIGNS: Heart rate, blood pressure, respiratory rate reviewed as recorded in nurse's notes. EYES: Pupils are round and reactive. Extraocular movements are intact. No conjunctival / lid redness or swelling. ENT: No external evidence of injury, swelling, or ecchymosis. Airway is patent. Throat is clear. NECK: Nontender. No swelling or evidence of injury. No subcutaneous emphysema. Trachea is midline. No thyroid mass. HEART: Regular rate and rhythm. Good peripheral pulses. LUNGS/CHEST: Breath sounds clear and equal bilaterally. No rales, rhonchi, or wheezes. No ecchymosis, subcutaneous emphysema, or tenderness. ABDOMEN: Abdomen soft without tenderness. No palpable masses or organomegaly. No peritoneal signs. No abdominal wall swelling or ecchymosis. EXTREMITIES: No extremity tenderness. Normal muscle tone and function. No thoracolumbar tenderness. NEUROLOGIC: Sensation is grossly intact. Cranial nerve exam reveals face is symmetrical, tongue is midline, speech is clear. SKIN: No abrasions or ecchymosis is noted. No induration or masses noted. PSYCHIATRIC: Alert and oriented. Appropriate behavior and judgment. (Osvaldo Kaur) Course Vital Signs 07/02/23 07/02/23 07/02/23 14:08 18:37 18:45 Temperature 98 F Pulse Rate 82 Pulse Rate [ 61 61 Mutual Fund Sales Agent ] Respiratory 18 18 Rate Blood Pressure 111/77 Blood Pressure 107/78 [Right Arm Sitting] Blood Pressure 92/67 [Right Arm Standing] Blood Pressure 118/82 [Right Arm Supine] O2 Sat by Pulse 99 97 Oximetry Medical Decision Making <Oscar Jasso - Last Filed: 07/02/23 14:12> - Lab Data Result diagrams: 07/02/23 14:44 07/02/23 14:44 <Osvaldo Kaur - Last Filed: 07/02/23 22:49> - Medical Decision Making I completed the quick note portion of this chart signed Oscar Jasso PA-C (Oscar Jasso) The patient was seen and examined. All diagnostics are reviewed. The EKG shows a normal sinus rhythm at a rate of 84. There is no acute ST or T wave changes noted per my interpretation. Intervals are all normal. The patient also had a chest x-ray and this did not show any acute abnormalities per my interpretation. Laboratory does show transaminitis, hypochloremia, hyponatremia, hypokalemia, leukocytosis. Urinalysis didn't show minimal elevation of the blood cells but no definite infection and no bacteriuria. Viral studies are negative. Overall, is felt as though she may have a degree of bronchitis. Her orthostatics are slightly positive as well. Zithromax is initiated IV. She received potassium chloride. She also receives IV fluids. She states that she feels remarkably improved on recheck. Discussion was held in regards to admission versus discharge. She was offered admission but patient would prefer to be discharged home and states that she feels well enough to be discharged home. Close follow- up with primary care is recommended. Oral fluid hydration also recommended. Patient is discharged with prescriptions for Levaquin and Zofran sent to her pharmacy. Was pt. sent in by a medical professional or institution (, PA, SENIOR PRINCIPAL PROCESS ENGINEER, urgent care, hospital, or intermediate...) When possible be specific @ -[No] Did you speak to anyone other than the patient for history (EMS, parent, family, police, friend...)? What history was obtained from this source @ -Patient's daughter is present and additional history is obtained from her. Did you review nursing and triage notes (agree or disagree)? Why? @ -[I reviewed and agree with nursing and triage notes] Were old charts reviewed (outside hosp., previous admission, EMS record, old EKG, old radiological studies, urgent care reports/EKG's, intermediate records)? Report findings @ -[No old charts were reviewed] Differential Diagnosis (chest pain, altered mental status, abdominal pain women, abdominal pain men, vaginal bleeding, weakness, fever, dyspnea, syncope, headache, dizziness, GI bleed, back pain, seizure, CVA, palpatations, mental health, musculoskeletal)? @ -Dehydration, orthostatic hypotension, nausea, bronchitis, weakness. EKG interpreted by me (3pts min.). @ -[As above] X-rays interpreted by me (1pt min.). @ -As above CT interpreted by me (1pt min.). @ -[None done] U/S interpreted by me (1pt. min.). @ -[None done] What testing was considered but not performed or refused? (CT, X-rays, U/S, labs)? Why? @ -[None] What meds were considered but not given or refused? Why? @ -[None] Did you discuss the management of the patient with other professionals (professionals i.e. , PA, SENIOR PRINCIPAL PROCESS ENGINEER, lab, RT, psych nurse, social group worker, retail agent, teacher, coastal/harbor defense officer, pillowcase cleaner)? Give summary @ -[No] Was smoking cessation discussed for >3mins.? @ -[No] Was critical care preformed (if so, how long)? @ -[No] Were there social determinants of health that impacted care today? How? (Homelessness, low income, unemployed, alcoholism, drug addiction, transportation, low edu. Level, literacy, decrease access to med. care, care home, rehab)? @ -[No] Was there de-escalation of care discussed even if they declined (Discuss DNR or withdrawal of care, Hospice)? DNR status @ -[No] What co-morbidities impacted this encounter? (DM, HTN, Smoking, COPD, CAD, Cancer, CVA, ARF, Chemo, Hep., AIDS, mental health diagnosis, sleep apnea, morbid obesity)? @ -[None] Was patient admitted / discharged? Hospital course, mention meds given and route, prescriptions, significant lab abnormalities, going to OR and other pertinent info. @ -She was discharged home. Please see above. Undiagnosed new problem with uncertain prognosis? @ -[No] Drug Therapy requiring intensive monitoring for toxicity (Heparin, Nitro, Insulin, Cardizem)? @ -[No] Were any procedures done? @ -[No] Diagnosis/symptom? @ -Weakness, bronchitis, cough, dehydration, nausea Acute, or Chronic, or Acute on Chronic? @ -Acute Uncomplicated (without systemic symptoms) or Complicated (systemic symptoms)? @ -Uncomplicated Side effects of treatment? @ -[No] Exacerbation, Progression, or Severe Exacerbation? @ -[No] Poses a threat to life or bodily function? How? (Chest pain, USA, CT, pneumonia, PE, COPD, DKA, ARF, appy, cholecystitis, CVA, Diverticulitis, Homicidal, Suicidal, threat to staff... and all critical care pts) @ -[No] (Osvaldo Kaur) - Lab Data Lab Results 07/02/23 07/02/23 07/02/23 Range/Units 14:44 14:44 14:44 WBC 19.8 H (3.8-10.6) k/uL RBC 4.53 (3.80-5.40) m/uL Hgb 14.0 (11.4-16.0) gm/dL Hct 40.8 (34.0-46.0) % MCV 90.0 (80.0-100.0) fL MCH 31.0 (25.0-35.0) pg MCHC 34.4 (31.0-37.0) g/dL RDW 12.6 (11.5-15.5) % Plt Count 513 H (150-450) k/uL MPV 7.9 Neutrophils % 87 % Lymphocytes % 6 % Monocytes % 5 % Eosinophils % 1 % Basophils % 0 % Neutrophils # 17.3 H (1.3-7.7) k/uL Lymphocytes # 1.1 (1.0-4.8) k/uL Monocytes # 1.0 (0-1.0) k/uL Eosinophils # 0.2 (0-0.7) k/uL Basophils # 0.0 (0-0.2) k/uL PT 11.5 (10.0-12.5) sec INR 1.1 (<1.2) APTT 26.5 (22.0-30.0) sec Sodium 131 L (137-145) mmol/L Potassium 3.1 L (3.5-5.1) mmol/L Chloride 93 L (98-107) mmol/L Carbon Dioxide 27 (22-30) mmol/L Anion Gap 11 mmol/L BUN 17 (7-17) mg/dL Creatinine 1.02 (0.52-1.04) mg/dL Est GFR (CKD-EPI)AfAm 63 (>60 ml/min/1.73 sqM) Est GFR (CKD-EPI)NonAf 55 (>60 ml/min/1.73 sqM) Glucose 130 H (74-99) mg/dL Calcium 9.4 (8.4-10.2) mg/dL Magnesium 2.1 (1.6-2.3) mg/dL Total Bilirubin 1.2 (0.2-1.3) mg/dL AST 97 H (14-36) U/L ALT 113 H (4-34) U/L Alkaline Phosphatase 135 H (38-126) U/L Creatine Kinase 59 (30-135) U/L Troponin I (0.000-0.034) ng/mL Total Protein 6.9 (6.3-8.2) g/dL Albumin 3.7 (3.5-5.0) g/dL Urine Color Urine Appearance (Clear) Urine pH (5.0-8.0) Ur Specific [place] (1.001-1.035) Urine Protein (Negative) Urine Glucose (UA) (Negative) Urine Ketones (Negative) Urine Blood (Negative) Urine Nitrite (Negative) Urine Bilirubin (Negative) Urine Urobilinogen (<2.0) mg/dL Ur Leukocyte Esterase (Negative) Urine RBC (0-5) /hpf Urine WBC (0-5) /hpf Ur Squamous Epith Cells (0-4) /hpf Hyaline Casts (0-2) /lpf Urine Mucus (None) /hpf Influenza Type A (PCR) (Not Detectd) Influenza Type B (PCR) (Not Detectd) RSV (PCR) (Not Detectd) SARS-CoV-2 (PCR) (Not Detectd) 07/02/23 07/02/23 07/02/23 Range/Units 14:44 18:30 19:00 WBC (3.8-10.6) k/uL RBC (3.80-5.40) m/uL Hgb (11.4-16.0) gm/dL Hct (34.0-46.0) % MCV (80.0-100.0) fL MCH (25.0-35.0) pg MCHC (31.0-37.0) g/dL RDW (11.5-15.5) % Plt Count (150-450) k/uL MPV Neutrophils % % Lymphocytes % % Monocytes % % Eosinophils % % Basophils % % Neutrophils # (1.3-7.7) k/uL Lymphocytes # (1.0-4.8) k/uL Monocytes # (0-1.0) k/uL Eosinophils # (0-0.7) k/uL Basophils # (0-0.2) k/uL PT (10.0-12.5) sec INR (<1.2) APTT (22.0-30.0) sec Sodium (137-145) mmol/L Potassium (3.5-5.1) mmol/L Chloride (98-107) mmol/L Carbon Dioxide (22-30) mmol/L Anion Gap mmol/L BUN (7-17) mg/dL Creatinine (0.52-1.04) mg/dL Est GFR (CKD-EPI)AfAm (>60 ml/min/1.73 sqM) Est GFR (CKD-EPI)NonAf (>60 ml/min/1.73 sqM) Glucose (74-99) mg/dL Calcium (8.4-10.2) mg/dL Magnesium (1.6-2.3) mg/dL Total Bilirubin (0.2-1.3) mg/dL AST (14-36) U/L ALT (4-34) U/L Alkaline Phosphatase (38-126) U/L Creatine Kinase (30-135) U/L Troponin I <0.012 (0.000-0.034) ng/mL Total Protein (6.3-8.2) g/dL Albumin (3.5-5.0) g/dL Urine Color Yellow Urine Appearance Clear (Clear) Urine pH 6.0 (5.0-8.0) Ur Specific [place] 1.023 (1.001-1.035) Urine Protein 1+ H (Negative) Urine Glucose (UA) Negative (Negative) Urine Ketones Negative (Negative) Urine Blood Negative (Negative) Urine Nitrite Negative (Negative) Urine Bilirubin Negative (Negative) Urine Urobilinogen 2.0 (<2.0) mg/dL Ur Leukocyte Esterase Trace H (Negative) Urine RBC 4 (0-5) /hpf Urine WBC 10 H (0-5) /hpf Ur Squamous Epith Cells 2 (0-4) /hpf Hyaline Casts 3 H (0-2) /lpf Urine Mucus Many H (None) /hpf Influenza Type A (PCR) Not Detected (Not Detectd) Influenza Type B (PCR) Not Detected (Not Detectd) RSV (PCR) Not Detected (Not Detectd) SARS-CoV-2 (PCR) Not Detected (Not Detectd) Disposition <Oscar Jasso - Last Filed: 07/02/23 14:12> Is patient prescribed a controlled substance at d/c from ED?: No Time of Disposition: 22:31 <Osvaldo Kaur - Last Filed: 07/02/23 22:49> Clinical Impression: Weakness, Cough, Dyspnea, Hypokalemia, Leukocytosis, Hyponatremia, Hypochloremia, Transaminitis, Dehydration, Bronchitis Disposition: HOME SELF-CARE Condition: Good Instructions (If sedation given, give patient instructions): Acute Bronchitis (ED), Dehydration (ED), Acute Nausea and Vomiting (ED) Additional Instructions: Please drink extra fluids for the next several days. Prescriptions: Levofloxacin [Levaquin] 500 mg PO DAILY 7 Days #1 tab Ondansetron Odt [Zofran Odt] 8 mg PO Q8HR PRN #15 tab PRN Reason: Nausea Referrals: Kulwant Bauman MD [Primary Care Provider] - 1-2 days
[2023-07-02 14:32] VITALS: RESP 18
[2023-07-02 14:49] LABS: Basophils % (A) 0 %; Eosinophils # (A) 0.2 k/uL (0-0.7); Eosinophils % (A) 1 %; HCT 40.8 % (34.0-46.0); Lymphocytes # (A) 1.1 k/uL (1.0-4.8); Lymphocytes % (A) 6 %; MCHC 34.4 g/dL (31.0-37.0); Mean Platelet Volume 7.9; Monocytes % (A) 5 %; Neutrophils # (A) 17.3 k/uL (1.3-7.7); Neutrophils % (A) 87 %; Platelet Count 513 k/uL (150-450); RBC 4.53 m/uL (3.80-5.40); RDW 12.6 % (11.5-15.5); WBC 19.8 k/uL (3.8-10.6)
[2023-07-02 15:06] LABS: ALT 113 U/L (4-34); AST 97 U/L (14-36); African American GFR (CKD) 63 (>60 ml/min/1.73 sqM); Albumin 3.7 g/dL (3.5-5.0); Alkaline Phosphatase 135 U/L (38-126); Anion Gap 11 mmol/L; Blood Urea Nitrogen 17 mg/dL (7-17); Calcium 9.4 mg/dL (8.4-10.2); Carbon Dioxide 27 mmol/L (22-30); Chloride 93 mmol/L (98-107); Creatine Kinase 59 U/L (30-135); Glucose 130 mg/dL (74-99); Magnesium 2.1 mg/dL (1.6-2.3); Non-African American GFR(CKD) 55 (>60 ml/min/1.73 sqM); Potassium 3.1 mmol/L (3.5-5.1); Sodium 131 mmol/L (137-145); Total Bilirubin 1.2 mg/dL (0.2-1.3); Total Protein 6.9 g/dL (6.3-8.2)
[2023-07-02 15:10] LABS: INR 1.1 (<1.2); Partial Thromboplastin Time 26.5 sec (22.0-30.0); Prothrombin Time 11.5 sec (10.0-12.5)
--- NOTE | 2023-07-02 18:39 | XR ---
EXAMINATION TYPE: XR chest 2V DATE OF EXAM: 07/02/2023 COMPARISON: 01/12/2023 HISTORY: 72-year-old female with weakness TECHNIQUE: PA and lateral views FINDINGS: The cardiomediastinal silhouette, aorta, and pulmonary vasculature are within normal limits. Coronary stent incidentally noted. Lungs and pleural spaces are clear. IMPRESSION: No acute cardiopulmonary process.
[2023-07-02 19:18] LABS: Appearance,Urine Clear (Clear); Bilirubin,Urine Negative (Negative); Blood,Urine Negative (Negative); Color,Urine Yellow; Glucose,Urine (UA) Negative (Negative); Hyaline Casts,Urine 3 /lpf (0-2); Ketones,Urine Negative (Negative); Leukocyte Esterase,Urine Trace (Negative); Mucus,Urine Many /hpf; Nitrite,Urine Negative (Negative); Protein,Urine 1+ (Negative); RBC,Urine 4 /hpf (0-5); Specific Gravity,Urine 1.023 (1.001-1.035); Squamous Epithelial Cell,Urine 2 /hpf (0-4); WBC,Urine 10 /hpf (0-5)
[2023-07-02] MEDS: POTASSIUM CHLORIDE ER 20 MEQ TAB.ER PO STA (20:23)
[2023-07-02] MEDS: ACETAMINOPHEN TAB 500 MG TAB PO STA (20:23)
[2023-07-02] MEDS: ONDANSETRON 4 MG/2 ML VIAL IVP STA (20:24)
[2023-07-02] MEDS: AZITHROMYCIN 500 MG in SODIUM CHLORIDE 0.9% 250 ML IVPB STA (20:24)
[2023-07-02] MEDS: SODIUM CHLORIDE 0.9% 1,000 ML IV STA ×2 (21:13→21:14)
[2023-07-02 23:33] VITALS: BP 112/76; PULSE 60; TEMP 98.6
== END 2023-07-02 23:30 | disposition home or self-care (01) ==
LOC: EC 13:58
DX: J40 Bronchitis, not specified as acute or chronic (principal); E87.6 Hypokalemia; E86.0 Dehydration; E87.1 Hypo-osmolality and hyponatremia; E87.8 Other disorders of electrolyte and fluid balance, not elsewhere classified; D72.829 Elevated white blood cell count, unspecified; R74.01 Elevation of levels of liver transaminase levels; I10 Essential (primary) hypertension; I25.2 Old myocardial infarction; F32.A Depression, unspecified; Z20.822 Contact with and (suspected) exposure to COVID-19; Z79.82 Long term (current) use of aspirin; Z79.899 Other long term (current) drug therapy; Z88.0 Allergy status to penicillin; Z88.1 Allergy status to other antibiotic agents; Z88.8 Allergy status to other drugs, medicaments and biological substances; Z88.5 Allergy status to narcotic agent; Z88.6 Allergy status to analgesic agent; Z91.041 Radiographic dye allergy status; Z95.5 Presence of coronary angioplasty implant and graft; Z90.49 Acquired absence of other specified parts of digestive tract
CPT/HCPCS: 99285; 96365; 96375; 96361 ×2; 36415; 93005; 80053; 82550; 83735; 84484; 85025; 85610; 85730; 81001; 87636; 71046; J2405; J0456

== ENCOUNTER 2023-07-06 11:53 | Observation (INO) | payer MEDICARE ==
--- NOTE | 2023-07-06 12:09 | ED ---
General Adult HPI - General Chief complaint: Shortness of Breath Stated complaint: Weakness Time Seen by Provider: 07/06/23 12:07 Source: patient, EMS, RN notes reviewed, old records reviewed Mode of arrival: EMS Limitations: no limitations - History of Present Illness Initial comments: Patient is a 72-year-old female presented to the ER via EMS with a chief complaint of weakness. Patient was seen here and diagnosed with bronchitis on Thursday. Patient was prescribed antibiotics but has not taken them as she is concerned of the side effects. Patient states symptoms started she has been extremely weak having difficulty walking from living room to bathroom to bedroom. She also reports a little appetite with associated nausea. Reports myalgias and chills. Patient states she has been feeling mildly short of breath like she cannot take a deep breath. Admits to a dry cough. She also states she has been having some abdominal pain. Denies any diarrhea does report some constipation recently. Denies any chest pain, peripheral edema, urinary symptoms. - Related Data Home Medications Medication Instructions Recorded Confirmed Aspirin EC [Ecotrin Low Dose] 81 mg PO DAILY 01/27/17 07/02/23 Calcium 500mg 1,000 mg PO DAILY 07/02/23 07/02/23 Cholecalciferol [Vitamin D3 (25 100 mcg PO DAILY 07/02/23 07/02/23 Mcg = 1000 Iu)] Multivitamin [Multivitamins Adult 2 tab PO DAILY 07/02/23 07/02/23 Gummies] Nitroglycerin Sl Tabs [Nitrostat] 0.4 mg SL Q5M PRN 07/02/23 07/02/23 PARoxetine [Paxil] 10 mg PO DAILY 07/02/23 07/02/23 Potassium Chloride 10 meq PO DAILY 07/02/23 07/02/23 Triamterene-Hctz 37.5-25Mg 1 cap PO DAILY 07/02/23 07/02/23 [Dyazide 37.5-25 Capsule] Ubidecarenone [Coenzyme Q10] 200 mg PO DAILY 07/02/23 07/02/23 Previous Rx's Medication Instructions Recorded Levofloxacin [Levaquin] 500 mg PO DAILY 7 Days #1 tab 07/02/23 Ondansetron Odt [Zofran Odt] 8 mg PO Q8HR PRN #15 tab 07/02/23 Levofloxacin [Levaquin] 750 mg PO DAILY 7 Days #7 tab 07/03/23 Allergies Allergy/AdvReac Type Severity Reaction Status Date / Time amoxicillin [From Augmentin] Allergy Severe Anaphylaxis Verified 07/06/23 12:00 benzocaine Allergy Severe Anaphylaxis Verified 07/06/23 12:00 cephalexin [From Keflex] Allergy Severe Anaphylaxis Verified 07/06/23 12:00 clavulanic acid Allergy Severe Anaphylaxis Verified 07/06/23 12:00 [From Augmentin] neomycin Allergy Severe Anaphylaxis Verified 07/06/23 12:00 Penicillins Allergy Severe Anaphylaxis Verified 07/06/23 12:00 procaine [From Novocain] Allergy Severe Anaphylaxis Verified 07/06/23 12:00 amlodipine AdvReac KIDNEY Verified 07/06/23 12:00 FAILURE cetirizine [From Zyrtec] AdvReac URINARY Verified 07/06/23 12:00 RETENTION hydromorphone [From Dilaudid] AdvReac GI UPSET Verified 07/06/23 12:00 Iodinated Contrast Media AdvReac GI UPSET Verified 07/06/23 12:00 [Iodinated Contrast- Oral and IV Dye] NSAIDS (Non-Steroidal AdvReac GI UPSET Verified 07/06/23 12:00 Anti-Inflamma [id number] Reductase AdvReac EXTREME Verified 07/06/23 12:00 Inhibitor JOINT PAIN [Dfvbvov-Glu-Xzk Reductase Inhibitor] verapamil AdvReac KIDNEY Verified 07/06/23 12:00 FAILURE Review of Systems ROS Statement: Those systems with pertinent positive or pertinent negative responses have been documented in the HPI. ROS Other: All systems not noted in ROS Statement are negative. Past Medical History Past Medical History: Hyperlipidemia, Hypertension, Myocardial Infarction ([place]) Additional Past Medical History / Comment(s): [place] in January 2017 Last Myocardial Infarction Date:: January 2017 History of Any Multi-Drug Resistant Organisms: None Reported Past Surgical History: Appendectomy, Heart Catheterization With Stent, Hysterectomy Past Anesthesia/Blood Transfusion Reactions: Previous Problems w/ Anesthesia Date of Last Stent Placement:: 01/27/17 Past Psychological History: Depression Smoking Status: Never smoker Past Alcohol Use History: None Reported Past Drug Use History: None Reported - Past Family History Father Family Medical History: Myocardial Infarction ([place]) Mother Family Medical History: CVA/TIA General Exam Limitations: no limitations General appearance: alert, in no apparent distress Head exam: Present: atraumatic, normocephalic, normal inspection Eye exam: Present: normal appearance, PERRL, EOMI. Absent: scleral icterus, conjunctival injection, periorbital swelling ENT exam: Present: normal exam, normal oropharynx, mucous membranes moist, TM's normal bilaterally Neck exam: Present: normal inspection. Absent: tenderness, meningismus, lymphadenopathy Respiratory exam: Present: normal lung sounds bilaterally. Absent: respiratory distress, wheezes, rales, rhonchi, stridor Cardiovascular Exam: Present: regular rate, normal rhythm, normal heart sounds. Absent: systolic murmur, diastolic murmur, rubs, gallop, clicks GI/Abdominal exam: Present: soft, tenderness (Suprapubic), normal bowel sounds. Absent: distended, guarding, rebound, rigid Back exam: Present: normal inspection Neurological exam: Present: alert, oriented X3, CN II-XII intact Psychiatric exam: Present: normal affect, normal mood Skin exam: Present: warm, dry, intact, normal color. Absent: rash Course Vital Signs 07/06/23 07/06/23 11:55 12:00 Temperature 97.7 F Pulse Rate 63 Respiratory 18 18 Rate Blood Pressure 121/71 O2 Sat by Pulse 97 Oximetry - Reevaluation(s) Reevaluation #1: 07/06/23 14:[address] Bauman accepts medical admission. Medical Decision Making - Medical Decision Making Was pt. sent in by a medical professional or institution (, PA, PAYROLL AND BENEFITS ASSISTANT, urgent care, hospital, or long term...) When possible be specific @ -No Did you speak to anyone other than the patient for history (EMS, parent, family, police, friend...)? What history was obtained from this source @ -No Did you review nursing and triage notes (agree or disagree)? Why? @ -I reviewed and agree with nursing and triage notes Were old charts reviewed (outside hosp., previous admission, EMS record, old EKG, old radiological studies, urgent care reports/EKG's, long term records)? Report findings @ -ER visit from 07/03/23 patient was offered admission for weakness but refused. Patient sent home with prescriptions of Levaquin for bronchitis. Patient received IV Zithromax and potassium chloride in the ER. Differential Diagnosis (chest pain, altered mental status, abdominal pain women, abdominal pain men, vaginal bleeding, weakness, fever, dyspnea, syncope, headache, dizziness, GI bleed, back pain, seizure, CVA, palpatations, mental health, musculoskeletal)? @ -Differential Weakness: Hypoglycemia, shock, sepsis, hyponatremia, anemia, infection, [place], ETOH, adverse medicine reaction, overdose, stroke, this is not meant to be an all-inclusive list. EKG interpreted by me (3pts min.). @ -As above X-rays interpreted by me (1pt min.). @ -Chest x-ray interpreted by me shows no acute process. CT interpreted by me (1pt min.). @ -None done U/S interpreted by me (1pt. min.). @ -None done What testing was considered but not performed or refused? (CT, X-rays, U/S, labs)? Why? @ -None What meds were considered but not given or refused? Why? @ -None Did you discuss the management of the patient with other professionals (pr ofessionals i.e. , PA, PAYROLL AND BENEFITS ASSISTANT, lab, RT, psych nurse, manager social responsibility, still operator helper, teacher, police booking officer, complex case manager)? Give summary @ -Yes, case discussed with Dr. Bauman who accepts medical admission. He advised CT abdomen/pelvis and starting Levaquin for leukocytosis. Was smoking cessation discussed for >3mins.? @ -No Was critical care preformed (if so, how long)? @ -No Were there social determinants of health that impacted care today? How? (Homelessness, low income, unemployed, alcoholism, drug addiction, transportation, low edu. Level, literacy, decrease access to med. care, assisted, rehab)? @ -No Was there de-escalation of care discussed even if they declined (Discuss DNR or withdrawal of care, Hospice)? DNR status @ -No What co-morbidities impacted this encounter? (DM, HTN, Smoking, COPD, CAD, Cancer, CVA, ARF, Chemo, Hep., AIDS, mental health diagnosis, sleep apnea, morbid obesity)? @ -Hypertension and hyperlipidemia Was patient admitted / discharged? Hospital course, mention meds given and route, prescriptions, significant lab abnormalities, going to OR and other pertinent info. @ -Admitted. Patient is a 72-year-old female presented to ER with chief complaint of weakness. Patient recently seen here on 07-03-2023 and was offered admission for weakness but refused. Patient sent home with prescription of Levaquin for bronchitis. Patient received IV Zithromax and potassium chloride in the ER. History and physical exam were completed. Vital stable. Patient no signs of acute distress and nontoxic-appearing. Lung sounds clear to auscultation bilaterally. Patient has mild suprapubic tenderness on palpation. Abdomen soft. Labs obtained significant for white blood cell count of 18.3, sodium 130, potassium 3.3, chloride 93 7, AST 87, ALT 94. Chest x-ray shows no e vidence of acute process. EKG without signs of infarct or ischemia. Urinalysis unremarkable. COVID, RSV, influenza negative. Admission considered due to leukocytosis with unclear source. I discussed this case with Dr. Bauman whom accepts medical admission. Patient will under go CT abdomen/pelvis per Dr. Bauman. Started Levaquin. Patient received IV fluids and Zofran in the ER. Patient will be admitted in stable condition for further evaluation and treatment. Patient in agreement with care plan. Undiagnosed new problem with uncertain prognosis? @ -No Drug Therapy requiring intensive monitoring for toxicity (Heparin, Nitro, Insulin, Cardizem)? @ -No Were any procedures done? @ -No Diagnosis/symptom? @ -Leukocytosis/hyponatremia/hypokalemia/hypochloremia/transaminitis/weakness Acute, or Chronic, or Acute on Chronic? @ -Acute Uncomplicated (without systemic symptoms) or Complicated (systemic symptoms)? @ -Uncomplicated Side effects of treatment? @ -No Exacerbation, Progression, or Severe Exacerbation? @ -No Poses a threat to life or bodily function? How? (Chest pain, [place], [place], pneumonia, PE, COPD, DKA, ARF, appy, cholecystitis, CVA, Diverticulitis, Homicidal, Suicidal, threat to staff... and all critical care pts) @ -Possibly - Lab Data Result diagrams: 07/06/23 12:19 07/06/23 12:19 Lab Results 07/06/23 07/06/23 07/06/23 Range/Units 12:19 12:19 12:19 WBC 18.3 H (3.8-10.6) k/uL RBC 3.87 (3.80-5.40) m/uL Hgb 12.0 (11.4-16.0) gm/dL Hct 35.5 (34.0-46.0) % MCV 91.7 (80.0-100.0) fL MCH 31.1 (25.0-35.0) pg MCHC 33.9 (31.0-37.0) g/dL RDW 12.4 (11.5-15.5) % Plt Count 569 H (150-450) k/uL MPV 7.6 Neutrophils % 90 % Lymphocytes % 5 % Monocytes % 4 % Eosinophils % 1 % Basophils % 0 % Neutrophils # 16.4 H (1.3-7.7) k/uL Lymphocytes # 0.8 L (1.0-4.8) k/uL Monocytes # 0.8 (0-1.0) k/uL Eosinophils # 0.2 (0-0.7) k/uL Basophils # 0.0 (0-0.2) k/uL PT 11.7 (10.0-12.5) sec INR 1.1 (<1.2) APTT 26.0 (22.0-30.0) sec Sodium (137-145) mmol/L Potassium (3.5-5.1) mmol/L Chloride (98-107) mmol/L Carbon Dioxide (22-30) mmol/L Anion Gap mmol/L BUN (7-17) mg/dL Creatinine (0.52-1.04) mg/dL Est GFR (CKD-EPI)AfAm (>60 ml/min/1.73 sqM) Est GFR (CKD-EPI)NonAf (>60 ml/min/1.73 sqM) Glucose (74-99) mg/dL Plasma Lactic Acid Juan (0.7-2.0) mmol/L Calcium (8.4-10.2) mg/dL Magnesium (1.6-2.3) mg/dL Total Bilirubin (0.2-1.3) mg/dL AST (14-36) U/L ALT (4-34) U/L Alkaline Phosphatase (38-126) U/L Troponin I (0.000-0.034) ng/mL Total Protein (6.3-8.2) g/dL Albumin (3.5-5.0) g/dL Urine Color Colorless Urine Appearance Clear (Clear) Urine pH 6.5 (5.0-8.0) Ur Specific Thompson 1.002 (1.001-1.035) Urine Protein Negative (Negative) Urine Glucose (UA) Negative (Negative) Urine Ketones Negative (Negative) Urine Blood Negative (Negative) Urine Nitrite Negative (Negative) Urine Bilirubin Negative (Negative) Urine Urobilinogen <2.0 (<2.0) mg/dL Ur Leukocyte Esterase Negative (Negative) Influenza Type A (PCR) (Not Detectd) Influenza Type B (PCR) (Not Detectd) RSV (PCR) (Not Detectd) SARS-CoV-2 (PCR) (Not Detectd) 07/06/23 07/06/23 07/06/23 Range/Units 12:19 12:19 12:19 WBC (3.8-10.6) k/uL RBC (3.80-5.40) m/uL Hgb (11.4-16.0) gm/dL Hct (34.0-46.0) % MCV (80.0-100.0) fL MCH (25.0-35.0) pg MCHC (31.0-37.0) g/dL RDW (11.5-15.5) % Plt Count (150-450) k/uL MPV Neutrophils % % Lymphocytes % % Monocytes % % Eosinophils % % Basophils % % Neutrophils # (1.3-7.7) k/uL Lymphocytes # (1.0-4.8) k/uL Monocytes # (0-1.0) k/uL Eosinophils # (0-0.7) k/uL Basophils # (0-0.2) k/uL PT (10.0-12.5) sec INR (<1.2) APTT (22.0-30.0) sec Sodium 130 L (137-145) mmol/L Potassium 3.3 L (3.5-5.1) mmol/L Chloride 93 L (98-107) mmol/L Carbon Dioxide 28 (22-30) mmol/L Anion Gap 9 mmol/L BUN 13 (7-17) mg/dL Creatinine 0.81 (0.52-1.04) mg/dL Est GFR (CKD-EPI)AfAm 83 (>60 ml/min/1.73 sqM) Est GFR (CKD-EPI)NonAf 72 (>60 ml/min/1.73 sqM) Glucose 123 H (74-99) mg/dL Plasma Lactic Acid Juan 1.4 (0.7-2.0) mmol/L Calcium 9.1 (8.4-10.2) mg/dL Magnesium 2.1 (1.6-2.3) mg/dL Total Bilirubin 1.0 (0.2-1.3) mg/dL AST 87 H (14-36) U/L ALT 94 H (4-34) U/L Alkaline Phosphatase 120 (38-126) U/L Troponin I <0.012 (0.000-0.034) ng/mL Total Protein 6.2 L (6.3-8.2) g/dL Albumin 3.1 L (3.5-5.0) g/dL Urine Color Urine Appearance (Clear) Urine pH (5.0-8.0) Ur Specific Thompson (1.001-1.035) Urine Protein (Negative) Urine Glucose (UA) (Negative) Urine Ketones (Negative) Urine Blood (Negative) Urine Nitrite (Negative) Urine Bilirubin (Negative) Urine Urobilinogen (<2.0) mg/dL Ur Leukocyte Esterase (Negative) Influenza Type A (PCR) (Not Detectd) Influenza Type B (PCR) (Not Detectd) RSV (PCR) (Not Detectd) SARS-CoV-2 (PCR) (Not Detectd) 07/06/23 Range/Units 12:19 WBC (3.8-10.6) k/uL RBC (3.80-5.40) m/uL Hgb (11.4-16.0) gm/dL Hct (34.0-46.0) % MCV (80.0-100.0) fL MCH (25.0-35.0) pg MCHC (31.0-37.0) g/dL RDW (11.5-15.5) % Plt Count (150-450) k/uL MPV Neutrophils % % Lymphocytes % % Monocytes % % Eosinophils % % Basophils % % Neutrophils # (1.3-7.7) k/uL Lymphocytes # (1.0-4.8) k/uL Monocytes # (0-1.0) k/uL Eosinophils # (0-0.7) k/uL Basophils # (0-0.2) k/uL PT (10.0-12.5) sec INR (<1.2) APTT (22.0-30.0) sec Sodium (137-145) mmol/L Potassium (3.5-5.1) mmol/L Chloride (98-107) mmol/L Carbon Dioxide (22-30) mmol/L Anion Gap mmol/L BUN (7-17) mg/dL Creatinine (0.52-1.04) mg/dL Est GFR (CKD-EPI)AfAm (>60 ml/min/1.73 sqM) Est GFR (CKD-EPI)NonAf (>60 ml/min/1.73 sqM) Glucose (74-99) mg/dL Plasma Lactic Acid Juan (0.7-2.0) mmol/L Calcium (8.4-10.2) mg/dL Magnesium (1.6-2.3) mg/dL Total Bilirubin (0.2-1.3) mg/dL AST (14-36) U/L ALT (4-34) U/L Alkaline Phosphatase (38-126) U/L Troponin I (0.000-0.034) ng/mL Total Protein (6.3-8.2) g/dL Albumin (3.5-5.0) g/dL Urine Color Urine Appearance (Clear) Urine pH (5.0-8.0) Ur Specific Thompson (1.001-1.035) Urine Protein (Negative) Urine Glucose (UA) (Negative) Urine Ketones (Negative) Urine Blood (Negative) Urine Nitrite (Negative) Urine Bilirubin (Negative) Urine Urobilinogen (<2.0) mg/dL Ur Leukocyte Esterase (Negative) Influenza Type A (PCR) Not Detected (Not Detectd) Influenza Type B (PCR) Not Detected (Not Detectd) RSV (PCR) Not Detected (Not Detectd) SARS-CoV-2 (PCR) Not Detected (Not Detectd) - EKG Data -: EKG Interpreted by Nh EKG Comments: EKG taken at 12: 25 shows sinus bradycardia with no acute ST segment or T wave abnormalities. Ventricular rate 58, W[place] interval 150, QRS duration 95, QT/QTc 398/395. - Radiology Data Radiology results: report reviewed, image reviewed Disposition Clinical Impression: Leukocytosis, Hypokalemia, Hyponatremia, Transaminitis, Hypochloremia, Weakness, Cough Disposition: ADMITTED IP TO THIS HOSP Condition: Fair Referrals: Kulwant Bauman MD [Primary Care Provider] - 1-2 days Time of Disposition: 14:08
[2023-07-06] MEDS: SODIUM CHLORIDE 0.9% 1,000 ML IV STA (12:40)
[2023-07-06] MEDS: ONDANSETRON 4 MG/2 ML VIAL IVP STA (12:40)
[2023-07-06 12:58] LABS: Basophils % (A) 0 %; Eosinophils # (A) 0.2 k/uL (0-0.7); Eosinophils % (A) 1 %; HCT 35.5 % (34.0-46.0); Lymphocytes # (A) 0.8 k/uL (1.0-4.8); Lymphocytes % (A) 5 %; MCH 31.1 pg (25.0-35.0); MCHC 33.9 g/dL (31.0-37.0); MCV 91.7 fL (80.0-100.0); Mean Platelet Volume 7.6; Monocytes # (A) 0.8 k/uL (0-1.0); Monocytes % (A) 4 %; Neutrophils # (A) 16.4 k/uL (1.3-7.7); Neutrophils % (A) 90 %; Platelet Count 569 k/uL (150-450); RBC 3.87 m/uL (3.80-5.40); RDW 12.4 % (11.5-15.5); WBC 18.3 k/uL (3.8-10.6)
[2023-07-06 12:59] LABS: INR 1.1 (<1.2); Prothrombin Time 11.7 sec (10.0-12.5)
[2023-07-06 13:04] LABS: ALT 94 U/L (4-34); AST 87 U/L (14-36); African American GFR (CKD) 83 (>60 ml/min/1.73 sqM); Albumin 3.1 g/dL (3.5-5.0); Alkaline Phosphatase 120 U/L (38-126); Anion Gap 9 mmol/L; Blood Urea Nitrogen 13 mg/dL (7-17); Calcium 9.1 mg/dL (8.4-10.2); Carbon Dioxide 28 mmol/L (22-30); Chloride 93 mmol/L (98-107); Glucose 123 mg/dL (74-99); Magnesium 2.1 mg/dL (1.6-2.3); Non-African American GFR(CKD) 72 (>60 ml/min/1.73 sqM); Sodium 130 mmol/L (137-145); Total Protein 6.2 g/dL (6.3-8.2)
[2023-07-06 13:07] LABS: Potassium 3.3 mmol/L (3.5-5.1)
--- NOTE | 2023-07-06 13:18 | XR ---
EXAMINATION TYPE: XR chest 2V DATE OF EXAM: 07/06/2023 COMPARISON: 07/02/2023 HISTORY: 72-year-old female with weakness TECHNIQUE: AP and lateral views FINDINGS: Heart normal size. Aorta and pulmonary vasculature within normal limits. No consolidation or pleural effusion. IMPRESSION: No acute cardiopulmonary process.
[2023-07-06 13:22] LABS: Appearance,Urine Clear (Clear); Bilirubin,Urine Negative (Negative); Blood,Urine Negative (Negative); Color,Urine Colorless; Glucose,Urine (UA) Negative (Negative); Ketones,Urine Negative (Negative); Leukocyte Esterase,Urine Negative (Negative); Nitrite,Urine Negative (Negative); PH, Urine 6.5 (5.0-8.0); Protein,Urine Negative (Negative); Specific Gravity,Urine 1.002 (1.001-1.035); Urobilinogen,Urine <2.0 mg/dL (<2.0)
[2023-07-06] MEDS ORDERED: NALOXONE 0.4 MG/ML 1 ML VIAL IV PRN (14:02)
[2023-07-06] MEDS ORDERED: METOCLOPRAMIDE 5 MG/ML 2 ML VIAL IVP PRN (14:17)
[2023-07-06] MEDS: LEVOFLOXACIN 500MG-D5W PMX 500 MG in DEXTROSE/WATER 1 100ML.BAG IVPB STA (14:50)
[2023-07-06] MEDS: SODIUM CHLORIDE 0.9% 1,000 ML IV SCH (14:51)
[2023-07-06] MEDS: diphenhydrAMINE 50 MG/ML 1 ML VIAL IVP STA (15:15)
[2023-07-06] MEDS: FAMOTIDINE 20 MG/2 ML VIAL IV STA (15:15)
[2023-07-06] MEDS: methylPREDNISolone SOD SUCCI 125 MG/2 ML VIAL IV STA (15:15)
[2023-07-06] MEDS ORDERED: NITROGLYCERIN SL TABS 0.4 MG TAB SUBLINGUAL PRN (18:01)
[2023-07-06] MEDS: ONDANSETRON ODT 8 MG TAB.RAPDIS PO PRN (18:18)
--- NOTE | 2023-07-06 20:05 | CT ---
EXAMINATION TYPE: CT abdomen pelvis wo con DATE OF EXAM: 07/06/2023 HISTORY: leukocytosis/suprapubic pain. Intubation. CT DLP: 535.3 mGycm. Automated Exposure Control for Dose Reduction was Utilized. TECHNIQUE: CT scan of the abdomen and pelvis is performed without oral or IV contrast. COMPARISON: 06/06/2021 FINDINGS: LUNG BASES: No acute process. However, prominent left and right coronary calcification noted, along w ith aortic valve calcifications and mild dilation of the ascending aorta as seen, which measures up t o 4.2 cm. LIVER/GB: No focal findings or acute process. PANCREAS: No significant abnormality is seen. SPLEEN: No significant abnormality is seen. ADRENALS: No significant abnormality is seen. KIDNEYS: No acute process. BOWEL: No bowel dilation or focal inflammation. PELVIC VISCERA: The urinary bladder is collapsed. There is no acute pelvic process. Specifically, no suprapubic acute process. ANTERIOR ABDOMINAL WALL: Intact. LYMPH NODES: No greater than 1cm abdominal or pelvic lymph nodes are appreciated. OSSEOUS STRUCTURES: No aggressive focal findings. Limitation of study: Without IV contrast there is limited CT sensitivity for focal visceral lesions, intraluminal filling defects, and vascular pathology. IMPRESSION: No acute process, as seen.
[2023-07-06] MEDS: POTASSIUM CHLORIDE ER 20 MEQ TAB.ER PO STA (21:23)
[2023-07-06] MEDS: ACETAMINOPHEN TAB 325 MG TAB PO PRN (21:56)
[2023-07-06 23:43] VITALS: RESP 16
[2023-07-07 08:43] LABS: Basophils # (A) 0.04 X 10*3/uL (0.00-0.10); Basophils % (A) 0.3 %; Eosinophils # (A) 0.46 X 10*3/uL (0.04-0.35); Eosinophils % (A) 2.9 %; HCT 31.6 % (37.2-46.3); HGB 10.3 g/dL (12.0-15.0); Lymphocytes # (A) 1.36 X 10*3/uL (0.90-5.00); Lymphocytes % (A) 8.7 %; MCH 29.9 pg (27.0-32.0); MCHC 32.6 g/dL (32.0-37.0); MCV 91.9 FL (80.0-97.0); Mean Platelet Volume 9.7 FL (9.5-12.2); Monocytes # (A) 1.42 X 10*3/uL (0.20-1.00); Monocytes % (A) 9.1 %; NRBC Per 100 WBC 0 X 10*3/uL (0.00-0.01); Neutrophils % (A) 78.4 %; Platelet Count 494 X 10*3/uL (140-440); RBC 3.44 X 10*6/uL (4.10-5.20); WBC 15.67 X 10*3/uL (4.50-10.00)
[2023-07-07 08:53] LABS: ALT 114 U/L (8-44); AST 107 U/L (13-35); Albumin 2.8 g/dL (3.8-4.9); Albumin/Globulin Ratio 1.12 Ratio (1.60-3.17); Alkaline Phosphatase 101 U/L (41-126); BUN/Creat Ratio 14.56 Ratio (12.00-20.00); Blood Urea Nitrogen 13.1 mg/dL (9.0-27.0); Calcium 8.5 mg/dL (8.7-10.3); Carbon Dioxide 29.4 mmol/L (21.6-31.8); Chloride 99 mmol/L (96-109); Creatine Kinase 58 U/L (26-186); Globulin 2.5 g/dL (1.6-3.3); Glucose 116 mg/dL (70-110); Potassium 3.7 mmol/L (3.5-5.5); Sodium 138 mmol/L (135-145); Total Bilirubin 0.4 mg/dL (0.3-1.2); Total Protein 5.3 g/dL (6.2-8.2)
[2023-07-07] MEDS: SODIUM CHLORIDE 0.9% 500 ML 500 ML IV ONE (08:57)
[2023-07-07] MEDS: CALCIUM CARB-VIT D 500 MG-5 MCG TAB PO SCH (08:57)
[2023-07-07] MEDS: ENOXAPARIN 40 MG/0.4 ML SYRINGE SQ SCH (08:57)
[2023-07-07] MEDS: POTASSIUM CHLORIDE ER 10 MEQ TAB.ER.PRT PO SCH (08:57)
[2023-07-07] MEDS: ASPIRIN 81 MG PO SCH (08:57)
[2023-07-07] MEDS: MULTIVITAMINS, THERA 1 EACH TAB PO SCH (08:57)
[2023-07-07] MEDS: PARoxetine 10 MG TAB PO SCH (08:58)
[2023-07-07] MEDS ORDERED: NON FORMULARY DRUG (Ubidecarenone [Coenzyme Q10] 200 MG Capsule) PO SCH (09:00)
[2023-07-07] MEDS ORDERED: TRIAMTERENE-HCTZ 37.5-25MG 1 EACH CAP PO SCH (09:00)
--- NOTE | 2023-07-07 18:43 | NM ---
EXAMINATION TYPE: NM pul vent and perfuse DATE OF EXAM: 07/07/2023 CLINICAL INDICATION: Female, 72 years old with history of shortness of breath, high dimer; Correlation: Radiograph 07/06/2023 TECHNIQUE: Utilizing inhalation of 39.3 mCi Tc 99m DTPA aerosol and intravenous injection of 5.2 mCi of Tc 99m MAA, ventilation and perfusion images are acquired post injection in multiple projections. FINDINGS: Normal radiotracer distribution is noted in the lungs. There is no evidence of mismatched defects. IMPRESSION: Very low probability for pulmonary embolus.
--- NOTE | 2023-07-07 20:46 | P.HPIM ---
History of Present Illness H&P Date: 07/06/23 Chief Complaint: Abdominal pain/generalized weakness HISTORY OF PRESENT ILLNESS: This is a 72-year-old female with a previous medical history significant for coronary artery disease status post PCI of the LCx in 2017, hypertension and hypertensive cardiovascular use, hyperlipidemia, history of vitamin D deficiency, osteoarthritis, depression and anxiety disorder, patient presented to the emergency department at [facility] the day before yesterday and she was diagnosed with acute bronchitis she was started on Levaquin and she was sent home apparently the patient did not want to take her Levaquin because she was afraid of the side effect, patient has multiple allergies patient ended up coming back to the emergency department because she has been feeling fatigued and weak and not able to do anything about she was seen in the ER today and she was found to have leukocytosis with a white count of 18,000, she appeared to be somewhat hypotensive, she did receive IV fluid resuscitation in the ER, she underwent CT scan of the abdomen and pelvis without contrast because the patient is allergic to the contrast, this came back negative, patient did receive a bolus of IV fluid and that she was started on IV fluid resuscitation in the form of normal saline at 130 mL/h, she was made to the hospital for further evaluation cardiac enzymes were negative, cortisol level was normal, her D-dimer was slightly elevated but the patient does not appear to have any acute respiratory distress, her oxygen saturation was 98% on room air. REVIEW OF SYSTEMS: Constitutional: No documented fever, no chills, no night sweats. No weight change. No weakness, fatigue or lethargy. No daytime sleepiness. EENT: No headache. No blurred vision or double vision, no loss of vision. No loss of Hearing, no ringing in the ears, no dizziness. No nasal drainage or c ongestion. No epistaxis. No sore throat. Lungs: No shortness of breath, no cough, no sputum production. No wheezing. Reports dyspnea with activity. Cardiovascular: No chest pain, no lower extremity edema. No palpitations. No paroxysmal nocturnal dyspnea. No orthopnea. No lightheadedness or dizziness. No syncopal episodes. Abdominal: Reports abdominal pain. No nausea, vomiting. No diarrhea. No constipation. No bloody or tarry stools reports loss of appetite. Genitourinary: No dysuria, increased frequency, urgency. No urinary retention. Musculoskeletal: No myalgias. No muscle weakness, no gait dysfunction, no frequent falls. No back pain. No neck pain. Integumentary: No wounds, no lesions. No rash or pruritus. No unusual bruising. No change in hair or nails. Neurologic: No aphasia. No facial droop. No change in mentation. No head injury. No headache. No paralysis. No paresthesia. Psychiatric: positive for depression. positive for anxiety. No mood swings. Endocrine: No abnormal blood sugars. No weight change. PAST MEDICAL HISTORY: Coronary artery disease status post PCI of the LCx 2016. Hypertension and hypertensive cardiovascular disease. Mixed hyperlipidemia. Osteoarthritis. Anxiety. Depression. Vitamin D deficiency. PAST SURGICAL HISTORY: Left heart catheterization with PCI of the LCx 2017 Appendectomy 2009 Colonoscopy 2008 Breast biopsy 1987 Complete hysterectomy 1992 D&C 1973 and 1980. Bilateral tubal ligation 1972. SOCIAL HISTORY: Patient is a lifelong non-smoker, she denies any alcohol ingestion, no drug use or abuse, she lives by herself she just lost her , she recently moved out of her daughter hospital home alone again. FAMILY HISTORY: Father at the age of 76 from diabetes complication as well as renal failure mother at the age of 86 from homicide and she had history of CVA, patient had 1 brother who at the age of 75 in a shelter, patient had 6 sisters 1 at the age of 47 from breast cancer the other 1 with breast cancer x 2 with bilateral mastectomy, patient also had other sisters with skin cancer, patient had 2 sons one of them is adopted out in 2 daughters one of them is adopted out. PHYSICAL EXAMINATION: General: This is a 72-year-old female laying down in bed in no apparent distress. She appears to be generally weak. HEENT: Head is atraumatic, normocephalic, pupils were equal round reactive to light and recommendation, extraocular muscle movement were intact, sclera no nicteric, conjunctivae were pale, mucous membranes of the mouth are somewhat dry. Neck: Supple, no JVP, normal carotid upstroke bilaterally, no lymphadenopathy. Chest: Decreased breath sounds at the bases, few rhonchi, no expiratory wheezes, no chest wall tenderness, no intercostal retractions. Heart: First heart sound is normal, second heart sounds normal Abdomen: Soft, nontender, nondistended, positive bowel sounds Extremities: There is no edema no calf tenderness DP +2 bilaterally. Neurologic examination: Patient is awake alert and oriented x3, cranial nerves II-12 appear grossly intact, muscle power were 5 out of 5 in upper extremities and 5 out of 5 in bilateral lower extremities, deep tendon reflexes normal bilaterally. ASSESSMENT AND PLAN: 1. Leukocytosis of unclear etiology likely reactive patient was diagnosed recently with acute bronchitis she did receive ceftriaxone in the hospital and she was sent home on oral Levaquin which she has never filled continue IV fluid resuscitation in the form of normal saline at 130 cc an hour. Monitor the patient's CBC over the next 24 hours. 2. Generalized weakness with hypotension likely related to hypovolemia discontinue triamterene hydrochlorothiazide and start the patient on IV fluid resuscitation in the form of normal saline at 130 cc an hour, monitor the patient's CMP over the next 24 hours. 3. Hyponatremia as well as hyperkalemia check the patient cortisol level rule out adrenal insufficiency, monitor the patient's CMP over the next 24 hours, continue IV fluid resuscitation in the form of normal saline at 130 cc an hour. 4. CAD post PCI of the LCx in 2017 continue patient on 5. Hypertension and hypertensive cardiovascular disease. Discontinue triamterene, patient is currently hypotensive. 6. Mixed hyperlipidemia. Patient took herself off statin because she could not tolerate it. 7. Vitamin D deficiency. Continue patient on vitamin D supplement. 8. Anxiety and depressive disorder. Patient was not able to tolerate Paxil at home, will start the patient on venlafaxine ER 37.5 mg orally once every day. 9. DVT prophylaxis. Continue patient on Lovenox 40 mg subcutaneous every 24 hours. 10. GI prophylaxis. Continue patient on Protonix 40 mg once a day. 11. Medical debility. Physical therapy evaluation. 12. Observation. 13. Full code. Past Medical History Past Medical History: Hyperlipidemia, Hypertension, Myocardial Infarction (OK) Additional Past Medical History / Comment(s): OK in January 2017 Last Myocardial Infarction Date:: January 2017 History of Any Multi-Drug Resistant Organisms: None Reported Past Surgical History: Appendectomy, Heart Catheterization With Stent, Hysterectomy Past Anesthesia/Blood Transfusion Reactions: Previous Problems w/ Anesthesia Date of Last Stent Placement:: 01/27/17 Past Psychological History: Depression Smoking Status: Never smoker Past Alcohol Use History: None Reported Past Drug Use History: None Reported - Past Family History Father Family Medical History: Myocardial Infarction (OK) Mother Family Medical History: CVA/TIA Medications and Allergies Home Medications Medication Instructions Recorded Confirmed Type Aspirin EC [Ecotrin Low Dose] 81 mg PO DAILY 01/27/17 07/06/23 History Nitroglycerin Sl Tabs [Nitrostat] 0.4 mg SL Q5M PRN 07/02/23 07/06/23 History Ondansetron Odt [Zofran Odt] 8 mg PO Q8HR PRN #15 tab 07/02/23 07/06/23 Rx PARoxetine [Paxil] 10 mg PO DAILY 07/02/23 07/06/23 History Potassium Chloride 10 meq PO DAILY 07/02/23 07/06/23 History Triamterene-Hctz 37.5-25Mg 1 cap PO DAILY 07/02/23 07/06/23 History [Dyazide 37.5-25 Capsule] Ubidecarenone [Coenzyme Q10] 200 mg PO DAILY 07/02/23 07/06/23 History Calcium Carbonate/Vitamin D3 2 tab PO DAILY 07/06/23 07/06/23 History [Calcium 500-Vit D3 400 Chew Tb] Centrum Women 50 Plus Gummies 2 tab PO DAILY 07/06/23 07/06/23 History Levofloxacin [Levaquin] 750 mg PO DIRECTED 07/06/23 07/06/23 History Allergies Allergy/AdvReac Type Severity Reaction Status Date / Time amoxicillin [From Augmentin] Allergy Severe Anaphylaxis Verified 07/06/23 12:00 benzocaine Allergy Severe Anaphylaxis Verified 07/06/23 12:00 cephalexin [From Keflex] Allergy Severe Anaphylaxis Verified 07/06/23 12:00 clavulanic acid Allergy Severe Anaphylaxis Verified 07/06/23 12:00 [From Augmentin] neomycin Allergy Severe Anaphylaxis Verified 07/06/23 12:00 Penicillins Allergy Severe Anaphylaxis Verified 07/06/23 15:24 procaine [From Novocain] Allergy Severe Anaphylaxis Verified 07/06/23 12:00 pollen extracts Allergy Anaphylaxis Verified 07/06/23 15:24 shellfish derived [Shellfish] Allergy Anaphylaxis Verified 07/06/23 15:24 amlodipine AdvReac KIDNEY Verified 07/06/23 12:00 FAILURE cetirizine [From Zyrtec] AdvReac URINARY Verified 07/06/23 12:00 RETENTION ezetimibe [From Zetia] AdvReac Muscle Pain Verified 07/06/23 15:24 hydromorphone [From Dilaudid] AdvReac GI UPSET Verified 07/06/23 12:00 Iodinated Contrast Media AdvReac GI UPSET Verified 07/06/23 12:00 [Iodinated Contrast- Oral and IV Dye] NSAIDS (Non-Steroidal AdvReac GI UPSET Verified 07/06/23 12:00 Anti-Inflamma rosuvastatin [From Crestor] AdvReac Muscle Pain Verified 07/06/23 15:24 Pqiytul-PZN-XaV Reductase AdvReac EXTREME Verified 07/06/23 12:00 Inhibitor JOINT PAIN [Ltohodd-Opt-Cpy Reductase Inhibitor] verapamil AdvReac KIDNEY Verified 07/06/23 12:00 FAILURE dust Allergy Anaphylaxis Uncoded 07/06/23 15:24 seafood Allergy Anaphylaxis Uncoded 07/06/23 15:24 surgical anesthesia (unknown) Allergy Anaphylaxis Uncoded 07/06/23 15:24 Physical Exam Vitals: Vital Signs Temp Pulse Resp BP Pulse Ox 07/06/23 17:00 61 18 94/60 95 07/06/23 15:30 62 94/60 97 07/06/23 15:00 62 109/64 100 07/06/23 14:30 54 L 94/57 07/06/23 13:30 58 L 106/85 07/06/23 12:30 59 L 123/75 07/06/23 12:00 18 121/71 99 07/06/23 11:55 97.7 F 63 18 121/71 97 Intake and Output 07/06/23 07/06/23 07/06/23 06:59 14:59 22:59 Other: Weight 70.307 kg Results CBC & Chem 7: 07/07/23 05:39 07/07/23 05:39 Labs: Abnormal Lab Results - Last 24 Hours (Table) 07/06/23 07/06/23 Range/Units 12:19 12:19 WBC 18.3 H (3.8-10.6) k/uL Plt Count 569 H (150-450) k/uL Neutrophils # 16.4 H (1.3-7.7) k/uL Lymphocytes # 0.8 L (1.0-4.8) k/uL Sodium 130 L (137-145) mmol/L Potassium 3.3 L (3.5-5.1) mmol/L Chloride 93 L (98-107) mmol/L Glucose 123 H (74-99) mg/dL AST 87 H (14-36) U/L ALT 94 H (4-34) U/L Total Protein 6.2 L (6.3-8.2) g/dL Albumin 3.1 L (3.5-5.0) g/dL
--- NOTE | 2023-07-07 20:49 | P.PN ---
Subjective Progress Note Date: 07/07/23 HISTORY OF PRESENT ILLNESS: This is a 72-year-old female with a previous medical history signif icant for coronary artery disease status post PCI of the LCx in 2017, hypertension and hypertensive cardiovascular use, hyperlipidemia, history of vitamin D deficiency, osteoarthritis, depression and anxiety disorder, patient presented to the emergency department at [facility] the day before yesterday and she was diagnosed with acute bronchitis she was started on Levaquin and she was sent home apparently the patient did not want to take her Levaquin because she was afraid of the side effect, patient has multiple allergies patient ended up coming back to the emergency department because she has been feeling fatigued and weak and not able to do anything about she was seen in the ER today and she was found to have leukocytosis with a white count of 18,000, she appeared to be somewhat hypotensive, she did receive IV fluid resuscitation in the ER, she underwent CT scan of the abdomen and pelvis without contrast because the patient is allergic to the contrast, this came back negative, patient did receive a bolus of IV fluid and that she was started on IV fluid resuscitation in the form of normal saline at 130 mL/h, she was made to the hospital for further evaluation cardiac enzymes were negative, cortisol level was normal, her D-dimer was slightly elevated but the patient does not appear to have any acute respiratory distress, her oxygen saturation was 98% on room air. 07/07: Patient is sitting up in the recliner chair she is doing better today, she complains of increased swelling in the right upper extremity due to IV fluid resuscitation, will decrease her IV fluid to 75 cc an hour, monitor the patient labs tomorrow morning, patient underwent ventilation/perfusion scan that was negative or low probability for pulm embolism, her CT scan of the abdomen pelvis without contrast was negative, we will monitor the patient very closely, she will be seen in consultation by physical therapy as well as social media editor, likely the patient will need to go back home in the next 24 hours, she will be started on Effexor XR 37.5 mg once every day as the patient is not able to nils erate Paxil, we will monitor the patient very closely and she will likely be discharged home in the morning. Patient was quite hypertensive earlier today, she did receive a bolus of normal saline, she was started on IV fluid resuscitation in the form of normal saline at 130 cc an hour down to 75 right now patient did have a cortisol level that was negative she also did have a troponin level that was negative, her D-dimer came back slightly elevated however her VQ scan was negative for pulmonary embolism and CT scan of the abdomen pelvis was negative. REVIEW OF SYSTEMS: Constitutional: No documented fever, no chills, no night sweats. No weight change. No weakness, fatigue or lethargy. No daytime sleepiness. EENT: No headache. No blurred vision or double vision, no loss of vision. No loss of Hearing, no ringing in the ears, no dizziness. No nasal drainage or congestion. No epistaxis. No sore throat. Lungs: No shortness of breath, no cough, no sputum production. No wheezing. Reports dyspnea with activity. Cardiovascular: No chest pain, no lower extremity edema. No palpitations. No paroxysmal nocturnal dyspnea. No orthopnea. No lightheadedness or dizziness. No syncopal episodes. Abdominal: Reports abdominal pain. No nausea, vomiting. No diarrhea. No constipation. No bloody or tarry stools reports loss of appetite. Genitourinary: No dysuria, increased frequency, urgency. No urinary retention. Musculoskeletal: No myalgias. No muscle weakness, no gait dysfunction, no frequent falls. No back pain. No neck pain. Integumentary: No wounds, no lesions. No rash or pruritus. No unusual bruising. No change in hair or nails. Neurologic: No aphasia. No facial droop. No change in mentation. No head injury. No headache. No paralysis. No paresthesia. Psychiatric: positive for depression. positive for anxiety. No mood swings. Endocrine: No abnormal blood sugars. No weight change. PHYSICAL EXAMINATION: General: This is a 72-year-old female laying down in bed in no apparent distress. She appears to be generally weak. HEENT: Head is atraumatic, normocephalic, pupils were equal round reactive to light and recommendation, extraocular muscle movement were intact, sclera nonicteric, conjunctivae were pale, mucous membranes of the mouth are somewhat dry. Neck: Supple, no JVP, normal carotid upstroke bilaterally, no lymphadenopathy. Chest: Decreased breath sounds at the bases, few rhonchi, no expiratory wheezes, no chest wall tenderness, no intercostal retractions. Heart: First heart sound is normal, second heart sounds normal Abdomen: Soft, nontender, nondistended, positive bowel sounds Extremities: There is no edema no calf tenderness DP +2 bilaterally. Neurologic examination: Patient is awake alert and oriented x3, cranial nerves II-12 appear grossly intact, muscle power were 5 out of 5 in upper extremities and 5 out of 5 in bilateral lower extremities, deep tendon reflexes normal bilaterally. ASSESSMENT AND PLAN: 1. Leukocytosis of unclear etiology likely reactive patient was diagnosed recently with acute bronchitis she did receive ceftriaxone in the hospital and she was sent home on oral Levaquin which she has never filled continue IV fluid resuscitation in the form of normal saline at 75 cc an hour. Monitor the patient's CBC over the next 24 hours. 2. Generalized weakness with hypotension likely related to hypovolemia discontinue triamterene hydrochlorothiazide and start the patient on IV fluid resuscitation in the form of normal saline at 75 cc an hour, monitor the patient's CMP over the next 24 hours. 3. Hyponatremia as well as hyperkalemia check the patient cortisol level rule out adrenal insufficiency, monitor the patient's CMP over the next 24 hours, continue IV fluid resuscitation in the form of normal saline at 75 cc an hour. 4. CAD post PCI of the LCx in 2017 continue patient on aspirin 81 mg orally once every day. 5. Hypertension and hypertensive cardiovascular disease. Discontinue triamterene, patient is currently hypotensive. 6. Mixed hyperlipidemia. Patient took herself off statin because she could not tolerate it. 7. Vitamin D deficiency. Continue patient on vitamin D supplement. 8. Anxiety and depressive disorder. Patient was not able to tolerate Paxil at home, will start the patient on venlafaxine ER 37.5 mg orally once every day. 9. DVT prophylaxis. Continue patient on Lovenox 40 mg subcutaneous every 24 hours. 10. GI prophylaxis. Continue patient on Protonix 40 mg once a day. 11. Medical debility. Physical therapy evaluation. 12. Observation. 13. Home tomorrow morning. Objective - Vital Signs Vital signs: Vital Signs Temp 97.9 F 07/07/23 07:00 Pulse 53 L 07/07/23 11:15 Resp 16 07/07/23 07:00 BP 90/54 07/07/23 11:15 Pulse Ox 96 07/07/23 07:00 FiO2 Intake & Output 02/07/07/23 07/07/23 18:59 06:59 18:59 Weight 70.307 kg Other: # Voids 1 - Labs CBC & Chem 7: 07/07/23 05:39 07/07/23 05:39 Labs: Abnormal Lab Results - Last 24 Hours (Table) 07/07/23 07/07/23 07/07/23 Range/Units 05:39 05:39 09:08 WBC 15.67 H (4.50-10.00) X 10*3/uL RBC 3.44 L (4.10-5.20) X 10*6/uL Hgb 10.3 L (12.0-15.0) g/dL Hct 31.6 L (37.2-46.3) % Plt Count 494 H (140-440) X 10*3/uL Immature Gran # 0.09 H (0.00-0.04) X 10*3/uL Neutrophils # 12.30 H (1.80-7.70) X 10*3/uL Monocytes # 1.42 H (0.20-1.00) X 10*3/uL Eosinophils # 0.46 H (0.04-0.35) X 10*3/uL D-Dimer 1.24 H (<0.60) mg/L FEU Glucose 116 H (70-110) mg/dL Calcium 8.5 L (8.7-10.3) mg/dL AST 107 H (13-35) U/L ALT 114 H (8-44) U/L Total Protein 5.3 L (6.2-8.2) g/dL Albumin 2.8 L (3.8-4.9) g/dL Albumin/Globulin Ratio 1.12 L (1.60-3.17) Ratio
[2023-07-08] MEDS: PANTOPRAZOLE 40 MG TABLET PO SCH (05:47)
[2023-07-08] MEDS: VENLAFAXINE HCL ER 37.5 MG CAP PO SCH (08:13)
[2023-07-08 08:48] LABS: Basophils # (A) 0.07 X 10*3/uL (0.00-0.10); Basophils % (A) 0.5 %; Eosinophils # (A) 0.51 X 10*3/uL (0.04-0.35); Eosinophils % (A) 3.3 %; HCT 34.6 % (37.2-46.3); Lymphocytes # (A) 1.13 X 10*3/uL (0.90-5.00); Lymphocytes % (A) 7.4 %; MCH 30.4 pg (27.0-32.0); MCHC 31.8 g/dL (32.0-37.0); MCV 95.6 FL (80.0-97.0); Mean Platelet Volume 10.1 FL (9.5-12.2); Monocytes # (A) 1.19 X 10*3/uL (0.20-1.00); Monocytes % (A) 7.8 %; NRBC Per 100 WBC 0 X 10*3/uL (0.00-0.01); Neutrophils # (A) 12.29 X 10*3/uL (1.80-7.70); Neutrophils % (A) 80.2 %; Platelet Count 403 X 10*3/uL (140-440); RBC 3.62 X 10*6/uL (4.10-5.20); RDW 13.2 % (11.5-14.5); WBC 15.31 X 10*3/uL (4.50-10.00)
[2023-07-08 09:30] VITALS: TEMP 98.4
[2023-07-08 09:36] LABS: Magnesium 1.9 mg/dL (1.5-2.4)
[2023-07-08 09:44] LABS: ALT 83 U/L (8-44); AST 64 U/L (13-35); Albumin 2.6 g/dL (3.8-4.9); Albumin/Globulin Ratio 1.04 Ratio (1.60-3.17); Alkaline Phosphatase 92 U/L (41-126); BUN/Creat Ratio 12.12 Ratio (12.00-20.00); Blood Urea Nitrogen 9.7 mg/dL (9.0-27.0); Calcium 8.4 mg/dL (8.7-10.3); Carbon Dioxide 22.6 mmol/L (21.6-31.8); Chloride 105 mmol/L (96-109); Globulin 2.5 g/dL (1.6-3.3); Glucose 94 mg/dL (70-110); Potassium 4.1 mmol/L (3.5-5.5); Sodium 139 mmol/L (135-145); Total Bilirubin 0.3 mg/dL (0.3-1.2); Total Protein 5.1 g/dL (6.2-8.2)
--- NOTE | 2023-07-08 12:28 | P.DS ---
Providers Date of admission: 07/06/23 14:47 Expected date of discharge: 07/08/23 Attending physician: Kulwant Bauman Primary care physician: Kulwant Bauman Hospital Course: HISTORY OF PRESENT ILLNESS: This is a 72-year-old female with a previous medical history significant for coronary artery disease status post PCI of the LCx in 2017, hypertension and hypertensive cardiovascular use, hyperlipidemia, history of vitamin D deficiency, osteoarthritis, depression and anxiety disorder, patient presented to the emergency department at [facility] the day before yesterday and she was diagnosed with acute bronchitis she was started on Levaquin and she was sent home apparently the patient did not want to take her Levaquin because she was afraid of the side effect, patient has multiple allergies patient ended up coming back to the emergency department because she has been feeling fatigued and weak and not able to do anything about she was seen in the ER today and she was found to have leukocytosis with a white count of 18,000, she appeared to be somewhat hypotensive, she did receive IV fluid resuscitation in the ER, she underwent CT scan of the abdomen and pelvis without contrast because the patient is allergic to the contrast, this came back negative, patient did receive a bolus of IV fluid and that she was started on IV fluid resuscitation in the form of normal saline at 130 mL/h, she was made to the hospital for further evaluation cardiac enzymes were negative, cortisol level was normal, her D-dimer was slightly elevated but the patient does not appear to have any acute respiratory distress, her oxygen saturation was 98% on room air. 07/07: Patient is sitting up in the recliner chair she is doing better today, she complains of increased swelling in the right upper extremity due to IV fluid resuscitation, will decrease her IV fluid to 75 cc an hour, monitor the patient labs tomorrow morning, patient underwent ventilation/perfusion scan that was negative or low probability for pulm embolism, her CT scan of the abdomen pelvis without contrast was negative, we will monitor the patient very closely, she will be seen in consultation by physical therapy as well as hospital social worker, likely the patient will need to go back home in the next 24 hours, she will be started on Effexor XR 37.5 mg once every day as the patient is not able to tolerate Paxil, we will monitor the patient very closely and she will likely be discharged home in the morning. Patient was quite hypertensive earlier today, she did receive a bolus of normal saline, she was started on IV fluid resuscitation in the form of normal saline at 130 cc an hour down to 75 right now patient did have a cortisol level that was negative she also did have a troponin level that was negative, her D-dimer came back slightly elevated however her VQ scan was negative for pulmonary embolism and CT scan of the abdomen pelvis was negative. 07/08: Patient and family decided the patient will go home with home care. Repeat blood work today reveals WBC 15.3, hemoglobin 11, platelet count 403. Sodium 139, potassium 4.1, chloride 105, CO2 22, BUN 9.7 creatinine 0.8. AST 64, ALT 83. Patient remains afebrile, heart rate 63, blood pressure 114/68 and pulse ox 100% on room air. Patient will be discharged with home care will plan to continue to hold triamterene/hydrochlorothiazide, potassium and replace Paxil with venlafaxine. DISCHARGE DIAGNOSES: 1. Leukocytosis of unclear etiology likely reactive patient was diagnosed recently with acute bronchitis she did receive ceftriaxone in the hospital and she was sent home on oral Levaquin which she has never filled. 2. Generalized weakness with hypotension likely related to hypovolemia. 3. Hyponatremia as well as hyperkalemia, resolved. 4. CAD post PCI of the LCx in 2017. 5. Hypertension and hypertensive cardiovascular disease. 6. Mixed hyperlipidemia. 7. Vitamin D deficiency. 8. Anxiety and depressive disorder. 9. Medical debility. 10. Subacute rehab. Greater than 35 minutes was utilized and coordinating patient's discharge. Impression and plan of care have been directed as dictated by the signing physician. Yohana Youngblood nurse practitioner acting as scribe for signing physician. Patient Condition at Discharge: Fair Plan - Discharge Summary New Discharge Prescriptions: New Venlafaxine HCl ER [Effexor XR] 37.5 mg PO DAILY #30 cap Acetaminophen Tab [Tylenol] 650 mg PO Q6HR PRN tab PRN Reason: Mild Pain Or Fever > 100.5 Continue Aspirin EC [Ecotrin Low Dose] 81 mg PO DAILY Ubidecarenone [Coenzyme Q10] 200 mg PO DAILY Calcium Carbonate/Vitamin D3 [Calcium 500-Vit D3 400 Chew Tb] 2 tab PO DAILY Nitroglycerin Sl Tabs [Nitrostat] 0.4 mg SL Q5M PRN PRN Reason: Chest Pain Ondansetron Odt [Zofran ODT] 8 mg PO Q8HR PRN #15 tab PRN Reason: Nausea Centrum Women 50 Plus Gummies 2 tab PO DAILY Discontinued Triamterene-Hctz 37.5-25Mg [Dyazide 37.5-25 Capsule] 1 cap PO DAILY Potassium Chloride 10 meq PO DAILY PARoxetine [Paxil] 10 mg PO DAILY Levofloxacin [Levaquin] 750 mg PO DIRECTED Discharge Medication List Aspirin EC [Ecotrin Low Dose] 81 mg PO DAILY 01/27/17 [History] Nitroglycerin Sl Tabs [Nitrostat] 0.4 mg SL Q5M PRN 07/02/23 [History] Ondansetron Odt [Zofran ODT] 8 mg PO Q8HR PRN #15 tab 07/02/23 [Rx] Ubidecarenone [Coenzyme Q10] 200 mg PO DAILY 07/02/23 [History] Calcium Carbonate/Vitamin D3 [Calcium 500-Vit D3 400 Chew Tb] 2 tab PO DAILY 07/06/23 [History] Centrum Women 50 Plus Gummies 2 tab PO DAILY 07/06/23 [History] Acetaminophen Tab [Tylenol] 650 mg PO Q6HR PRN tab 07/08/23 [Rx] Venlafaxine HCl ER [Effexor XR] 37.5 mg PO DAILY #30 cap 07/08/23 [Rx] Follow up Appointment(s)/Referral(s): Kulwant Bauman MD [Primary Care Provider] - 1 Week (AT REHAB) A Visiting Nurse, [NON-STAFF] - 1 Week ([facility] homecare will call you to arrange a visit) Discharge Disposition: TRANSFER TO SNF/ECF
[2023-07-08 13:08] VITALS: BP 116/73; PULSE 56
== END 2023-07-08 14:11 | disposition home health service (06) ==
LOC: EC 11:53 → 6NMEDSUR 14:47
PROVIDERS: ADMIT Internal Medicine; ATTEND Internal Medicine
DX: D72.829 Elevated white blood cell count, unspecified (principal); R53.1 Weakness; I95.9 Hypotension, unspecified; E87.6 Hypokalemia; E87.1 Hypo-osmolality and hyponatremia; R74.01 Elevation of levels of liver transaminase levels; E87.8 Other disorders of electrolyte and fluid balance, not elsewhere classified; R05.9 Cough, unspecified; F41.9 Anxiety disorder, unspecified; I11.9 Hypertensive heart disease without heart failure; I25.10 Atherosclerotic heart disease of native coronary artery without angina pectoris; E78.2 Mixed hyperlipidemia; F32.A Depression, unspecified; E55.9 Vitamin D deficiency, unspecified; M19.90 Unspecified osteoarthritis, unspecified site; I25.2 Old myocardial infarction; Z20.822 Contact with and (suspected) exposure to COVID-19; Z95.5 Presence of coronary angioplasty implant and graft; Z79.82 Long term (current) use of aspirin; Z79.899 Other long term (current) drug therapy; Z88.0 Allergy status to penicillin; Z88.1 Allergy status to other antibiotic agents; Z88.5 Allergy status to narcotic agent; Z88.6 Allergy status to analgesic agent
CPT/HCPCS: 96372 ×2; 96374; 99285; 36415; 93005; 97162; 97166; 85379; 80053 ×3; 82533; 82550; 83605 ×2; 83735 ×3; 84484 ×2; 85025 ×3; 85610; 85730; 81003; 87040; 87636; 71046; 74176; 78582; G0378 ×3; A9540; A9567; J2405; J1956; J1650 ×2

== ENCOUNTER → 2023-11-16 | Outpatient (CLI) | payer MEDICARE ==
[2023-11-16 12:17] LABS: Partial Thromboplastin Time 26.8 sec (22.0-30.0); Prothrombin Time 10.8 sec (10.0-12.5)
[2023-11-16 15:04] LABS: Basophils # (A) 0.01 X 10*3/uL (0.00-0.10); Basophils % (A) 0.2 %; Eosinophils # (A) 0.05 X 10*3/uL (0.04-0.35); Eosinophils % (A) 0.8 %; HCT 42.9 % (37.2-46.3); HGB 13.1 g/dL (12.0-15.0); Lymphocytes # (A) 1.02 X 10*3/uL (0.90-5.00); Lymphocytes % (A) 15.7 %; MCH 28.9 pg (27.0-32.0); MCHC 30.5 g/dL (32.0-37.0); MCV 94.5 FL (80.0-97.0); Mean Platelet Volume 11.6 FL (9.5-12.2); Monocytes # (A) 0.59 X 10*3/uL (0.20-1.00); Monocytes % (A) 9.1 %; NRBC Per 100 WBC 0 X 10*3/uL (0.00-0.01); Neutrophils # (A) 4.82 X 10*3/uL (1.80-7.70); Neutrophils % (A) 73.9 %; Platelet Count 294 X 10*3/uL (140-440); RBC 4.54 X 10*6/uL (4.10-5.20); RDW 13.5 % (11.5-14.5); WBC 6.51 X 10*3/uL (4.50-10.00)
[2023-11-16 15:40] LABS: ALT 32 U/L (8-44); AST 34 U/L (13-35); Albumin 4.4 g/dL (3.8-4.9); Albumin/Globulin Ratio 1.47 Ratio (1.60-3.17); Alkaline Phosphatase 104 U/L (41-126); Blood Urea Nitrogen 14.2 mg/dL (9.0-27.0); Calcium 10.1 mg/dL (8.7-10.3); Carbon Dioxide 26.6 mmol/L (21.6-31.8); Chloride 102 mmol/L (96-109); Glucose 93 mg/dL (70-110); Potassium 4.3 mmol/L (3.5-5.5); Sodium 138 mmol/L (135-145); Total Bilirubin 0.4 mg/dL (0.3-1.2); Total Protein 7.4 g/dL (6.2-8.2)
== END | disposition home or self-care (01) ==
LOC: LABWHC1 11:31
PROVIDERS: ATTEND Internal Medicine
DX: Z01.812 Encounter for preprocedural laboratory examination (principal)
CPT/HCPCS: 36415; 80053; 85025; 85610; 85730

== ENCOUNTER → 2023-11-26 | Outpatient (CLI) | payer MEDICARE ==
--- NOTE | 2023-11-26 21:54 | US ---
EXAMINATION TYPE: US thyroid st tissue head/neck DATE OF EXAM: 11/26/2023 COMPARISON: NONE CLINICAL INDICATION: Female, 73 years old with history of E04.1 NONTOXIC SINGLE THYROID NODULE; Pt fe els lump inf to thyroid GLAND SIZE: Right Lobe: 4.0 x 1.2 x 1.3 cm Overall Parenchyma: homogeneous Left Lobe: 4.1 x 1.1 x 1.1 cm Overall Parenchyma: homogeneous Isthmus Thickness: 0.24 cm NODULES RIGHT: # of nodules measured on right: 0 LEFT: # of nodules measured on left: 0 ISTHMUS: # of nodules measured in the isthmus: 0 Bilateral neck scanned, no evidence of lymphadenopathy. Area of lump scanned directly inferior to thyroid, no discrete mass seen. IMPRESSION: 1. Unremarkable thyroid ultrasound. 2. No suspicious masses to correlate with the palpable region inferior to the thyroid.
== END | disposition home or self-care (01) ==
LOC: RADUSWWP 14:52
PROVIDERS: ATTEND Internal Medicine
DX: E04.1 Nontoxic single thyroid nodule (principal)
CPT/HCPCS: 76536

== ENCOUNTER → 2024-02-04 | Outpatient (CLI) | payer MEDICARE ==
--- NOTE | 2024-02-07 14:52 | MM ---
Reason for Exam: Screening (asymptomatic). Last screening mammogram was performed 12 month(s) ago. Patient History: Menarche at age 9. First Full-Term at age 13. Left ovary removed at age 41. Right ovary removed at age 41. Hysterectomy at age 41. Postmenopausal. Estrogen and Progesterone, from age 41 until age 55. Sister had breast cancer, age 45. Sister had breast cancer, age 59. Sister had breast cancer at or over age 50. Sister had breast cancer at or over age 50. Risk Values: Arleen 5 year model risk: 9.1%. NCI Lifetime model risk: 18.6%. Prior Study Comparison: 11/20/2017 Screening Mammogram, [facility]. 03/15/2019 Screening Mammogram, [facility]. 04/02/2020 Screening Mammogram, [facility]. 08/13/2021 Bilateral Screening Mammogram, [facility]. 01/28/2023 Bilateral MG 3D screening mammo w/cad, [facility]. Tissue Density: There are scattered areas of fibroglandular density. Findings: Analyzed By CAD. The pattern is symmetrical. No significant interval change No suspicious groups of microcalcifications, spiculated or lobular masses, architectural distortion or other secondary signs of malignancy are mammographically apparent. Overall Assessment: Benign, BI-RAD 2 Management: Screening Mammogram of both breasts in 1 year. A negative mammogram report should not preclude additional follow up of suspicious palpable abnormalities. Patient should continue monthly self breast exam. A clinical breast exam by your physician is recommended on an annual basis and results should be correlated with mammographic findings. Note on Arlene scores and lifetime risk: 1. A Arleen score greater than 3% is considered moderate risk. If this is the case, consider specialist referral to assess eligibility for a risk reducing agent. 2. If overall lifetime risk for the development of breast cancer is 20% or higher, the patient may qualify for future screening with alternating mammogram and breast MRI. [facility], , 02/07/2024 2:49 PM. Electronically signed and approved by: Nnamdi Toth D.O. Radiologis
== END | disposition home or self-care (01) ==
LOC: RADMAMWWP 10:02
PROVIDERS: ATTEND Internal Medicine
DX: Z12.31 Encounter for screening mammogram for malignant neoplasm of breast
CPT/HCPCS: 77063; 77067